=== PATIENT | male | born 1965 | race Caucasian/White ===

== ENCOUNTER 2018-08-17 18:41 | Inpatient (IN) | payer BC ==
[2018-08-17] MEDS ORDERED: guaiFENesin-Coden 100-10MG/5ML 10 ML CUP PO PRN (21:21)
[2018-08-17] MEDS ORDERED: cloNIDine HCL 0.1 MG TAB PO PRN (21:21)
[2018-08-17] MEDS ORDERED: cloNIDine 0.2 MG/24HR PATCH TRANSDERM SCH (21:30)
[2018-08-17] MEDS ORDERED: NALOXONE 0.4 MG/ML 1 ML VIAL IV PRN (21:44)
[2018-08-17] MEDS ORDERED: DOCUSATE 100 MG CAP PO PRN (21:44)
[2018-08-17] MEDS ORDERED: ALPRAZolam 0.25 MG TAB PO PRN (21:44)
[2018-08-17] MEDS ORDERED: PHENobarbital 32.4 MG TAB PO SCH (21:45)
[2018-08-17] MEDS ORDERED: PHENobarbital 64.8 MG TAB PO SCH (22:00)
[2018-08-17] MEDS ORDERED: cloNIDine 0.1 MG/24HR PATCH TRANSDERM SCH (22:00)
[2018-08-17] MEDS: AMPICILLIN-SULBACTAM 3 GM in SODIUM CHLORIDE 0.9% 100 ML IVPB SCH (22:43)
[2018-08-17] MEDS: SODIUM CHLORIDE 0.9% 1,000 ML IV SCH (22:45)
[2018-08-17] MEDS: PANTOPRAZOLE 40 MG TABLET PO SCH (22:45)
--- NOTE | 2018-08-17 23:02 | P.HPIM ---
History of Present Illness H&P Date: 08/17/18 Chief Complaint: direct admit , transfer from [facility] for thoracentesis by IR 52 year old male with history of alcohol abuse. Patient was seen on the medical floor upon transfer, he is currently doing well , told them that it week ago he felt sick and fell down for which she called a friend to be transferred to the hospital he was complaining of chest tightness at that time with some weight loss over 2 weeks of time he lost 10 pounds but he said he always weighed around 125-150 pounds which is around his current weight. He denies any hemoptysis GI bleeding currently denies any chest pain nausea vomiting or abdominal pain. He admits to heavy drinking on regular basis and smoking but denies any history of COPD. He doesn't take any medications at home. He works daily and pretty independent in his activities of daily living. He knows that he has spent a week at the other facility being treated for pneumonia and DTs due to alcohol withdrawal. He understands that he was transferred due to persistent left pleural effusion for further management. Patient reports that he developed generalized debility while at the other facility he noticed that over the past 2 days that he can't walk long distances at the other facility. However at baseline he does not require any assistive devices for ambulation Patient was admitted to [facility] on 08/10/2018, with initial presentation of chest pain and tachycardia and SOB, spent 7 days then transferred to our facility, usually risk of alcohol withdrawal is in the first 5 days after cessation of chronic alcohol ingestion , however, he was having severe DTs. Patient has been treated with Benzo per CIWA for DTs then switched to phenobarb due to severe withdrawal symptoms. He was found to have sepsis secondary to pneumonia (possible aspiration ) and bacteremia (STREPTOCOCCUS PNEUMONIAE from pneumonia) , for which he was covered with Unasyn , then later found to have loculated pleural effusion over the left side, s/p thoracentesis on 08/17/2018. however, pleural effusion was found to be persistent and loculated , and in light of persistent elevation in his white count , there is suspicion for loculated empyema, for which he was transferred to our facility for IR guided thoracentesis. Positive blood culture on 08/12/18, initially treated with vancomycin then switched to unasyn for strep pneumo. Cardiology evaluated the patient due to initial presentation of chest pain and tachycardia , deemed him stable from their standpoint on 08/16/2018. Echocardiogram left ventricle with normal wall thickness and cavity size is normal systolic function is borderline reduced estimated ejection fraction of 50 % mild global hypokinesis Initial imaging on 08/10/18 CXR showed RT upper lobe and Lt lower lobe infilterates, with small left effusion , suspected nodular pattern over neymar right upper lobe suspected for neoplasm CT chest , bilateral areas of consolidation with small left effusion , recommending follow up to resolution of the consolidation is recommended to exclude underlying neoplasm , particular attention to the right upper lobe, are of 1.7 cm of localized focal consolidation or nodule CXR on 08/17/2018 report no pneumothorax post thoracentesis, moderate to large left loculated pleural effusion, slight improvement of an infiltrate of the left upper lobe and per free of the right mid lung, atelectasis right costophrenic angle Review of Systems Pertinent positives as noted in HPI. All other systems were reviewed and are negative Past Medical History Past Medical History: Hypertension, Pneumonia History of Any Multi-Drug Resistant Organisms: None Reported Past Surgical History: No Surgical Hx Reported Past Anesthesia/Blood Transfusion Reactions: No Reported Reaction Past Psychological History: No Psychological Hx Reported Smoking Status: Current every day smoker Past Alcohol Use History: Daily, Heavy Additional Past Alcohol Use History / Comment(s): 6-12 beers daily Past Drug Use History: None Reported Medications and Allergies Home Medications and Allergies Comment(s): medications reviewed from transfer paper chart. Home Medications Medication Instructions Recorded Confirmed Type Acetaminophen Tab [Tylenol Tab] 650 mg PO Q6H PRN 08/17/18 08/17/18 History Aminah Back And Body 1 tab PO Q6H PRN 08/17/18 08/17/18 History Allergies Allergy/AdvReac Type Severity Reaction Status Date / Time No Known Allergies Allergy Unverified 08/17/18 20:32 Physical Exam Vitals: Blood pressure 118/79 Heart rate 100 Temperature 90.8 Fahrenheit oral Respiratory 20 Constitutional: No acute distress, conversant, pleasant, looks thin. And older than stated age Eyes: Anicteric sclerae, moist conjunctiva, no lid-lag Pupils equal round reactive to light ENMT: NC/AT Oropharynx clear, no teeth, no erythema, no exudates Neck: Supple, FROM, no masses, or JVD No carotid bruits No thyromegaly Lungs: Good breath sounds over the right side of the lung, there is bronchial breathing over the mid and lower left lung with decreased breath sounds over the left lung base compared to the right side no wheezing no rhonchi no crackles Normal respiratory effort, no accessory muscle use Cardiovascular: Heart regular in rate and rhythm, No murmurs, gallops, or rubs No peripheral edema Abdominal: Soft Nontender, no guarding, rebound or rigidity Abdomen moving with respiration Normoactive bowel sounds No hepatomegaly, No splenomegaly No palpable mass No abdominal wall hernia noted Skin: Normal temperature, tone, texture, turgor No induration No subcutaneous nodules No rash, lesions No ulcers Extremities: No digital cyanosis No clubbing Pedal pulses intact and symmetrical Radial pulses intact and symmetrical No calf tenderness Psychiatric: Alert and oriented to person, place and time Appropriate affect fair judgment Neuro Muscles Strength 5/5 in all 4 extremities Sensation to light touch grossly present throughout Cranial nerves II-XII grossly intact No focal sensory deficits Lymphatics: no palpable cervical or supraclavicular , or inguinal lymph nodes Results Results: today labs from [facility] 08/17/2018 White BC 21.27 Hemoglobin 11.1 g per dl Platelet 262 INR 1.7 Glucose 91 bun 8 Creatinine 0.46 Sodium 127 Potassium 3.3 CO2 20 AGAP 12 Calcium 7.6 Assessment and Plan Assessment: Patient was admitted to [facility] on 08/10/2018, spent 7 days then transferred to our facility, usually risk of alcohol withdrawal is in the first 5 days after cessation of chronic alcohol ingestion he was having severe DTs. Patient has been treated with Benzo per CIWA for DTs then switched to phenobarb due to severe withdrawal symptoms. He was found to have sepsis secondary to pneumonia (possible aspiration ) and bacteremia (STREPTOCOCCUS PNEUMONIAE from pneumonia) , for which he was covered with Unasyn , then later found to have loculated pleural effusion over the left side, s/p thoracentesis on 08/17/2018. however, pleural effusion was found to be persistent and loculated , and in light of persistent elevation in his white count , there is suspicion for loculated empyema, for which he was transferred to our facility for IR guided thoracentesis. Plan: Acute hyponatremia acute hypoxic respiratory failure 2/2 Sepsis 2/2 Bacteremia (strep pneumo) , penumonia (CAP vs aspiration ) and Left sided loculated persistent pleural effusion s/p thoracentesis ?empyema Alcohol abuse with DTs metabolic encephalopathy secondary to above , improving Hypertension electrolyte imbalance with hypokalemia supportive care IV ABx unasyn follow up blood cultures follow up labs replace K as needed nephro consult for worsening hyponatremia pulmonary consult for left pleural effusion IR to perform thoracentesis NPO after midnight continue home meds clonidine patch will be discontinued as patient blood pressure seems to be fine now and he is not on clonidine patch at this time. I will continue with when necessary clonidine 0.1 mg by mouth as needed for high blood pressure phenobarb for severe DTs PRN benzo bronchodilators thiamine and folic acid IVF hydration with NS fall and seizure precautions neuro checks IS DVT PPx heparin sc TID GI PPX with PPI full code Preformed a thorough record review from recent hospitalization at [facility] are summarized in HPI Surrogate decision maker patient's Sister., patient is full code Anticipated discharge: 48-[address]: Pending clinical course possible placement at rehab A total of 90 minutes was spent on the care of this complex patient more than 50 % of the time was spent in counseling and care coordination.
[2018-08-18] MEDS: HEPARIN SODIUM,PORCINE 5,000 UNIT/ML 1 ML VIAL SQ SCH ×3 (02:39→15:34)
[2018-08-18] MEDS: ACETAMINOPHEN TAB 325 MG TAB PO PRN ×4 (03:37→20:34)
[2018-08-18 06:15] LABS: Basophils # (A) 0.1 k/uL (0-0.2); Basophils % (A) 0 %; Eosinophils % (A) 0 %; HCT 32.7 % (39.0-53.0); HGB 10.6 gm/dL (13.0-17.5); Lymphocytes # (A) 0.6 k/uL (1.0-4.8); Lymphocytes % (A) 3 %; MCHC 32.2 g/dL (31.0-37.0); MCV 99.2 fL (80.0-100.0); Mean Platelet Volume 7.8; Monocytes # (A) 1.1 k/uL (0-1.0); Monocytes % (A) 6 %; Neutrophils # (A) 15.2 k/uL (1.3-7.7); Neutrophils % (A) 87 %; Platelet Count 319 k/uL (150-450); RDW 12.8 % (11.5-15.5); WBC 17.4 k/uL (3.8-10.6)
[2018-08-18] MEDS: AMPICILLIN-SULBACTAM 3 GM in SODIUM CHLORIDE 0.9% 100 ML IVPB SCH ×3 (06:19→18:08)
[2018-08-18] MEDS: PANTOPRAZOLE 40 MG TABLET PO SCH ×4 (06:19→20:41)
[2018-08-18] MEDS: SODIUM CHLORIDE 0.9% 1,000 ML IV SCH ×2 (06:22→17:05)
[2018-08-18 06:30] LABS: ALT 59 U/L (21-72); AST 61 U/L (17-59); Albumin 2.1 g/dL (3.5-5.0); Alkaline Phosphatase 53 U/L (38-126); Anion Gap 8 mmol/L; Blood Urea Nitrogen 9 mg/dL (9-20); Calcium 7.3 mg/dL (8.4-10.2); Carbon Dioxide 24 mmol/L (22-30); Chloride 98 mmol/L (98-107); Glucose 98 mg/dL (74-99); Magnesium 2.3 mg/dL (1.6-2.3); Sodium 130 mmol/L (137-145); Total Bilirubin 0.7 mg/dL (0.2-1.3); Total Protein 4.6 g/dL (6.3-8.2)
--- NOTE | 2018-08-18 08:17 | XR ---
EXAMINATION TYPE: XR chest 1V DATE OF EXAM: 08/18/2018 COMPARISON: None INDICATION: Left pleural effusion TECHNIQUE: Single frontal view of the chest is obtained. FINDINGS: The heart size is normal. The pulmonary vasculature is normal. Large loculated left pleural effusion appears to be present. Underlying mass is not excluded. There i s mild increased lung markings in the right perihilar region. Minimal right pleural effusion may be p resent. IMPRESSION: 1. There appears to be a large loculated left pleural fluid collection. Underlying masses are not exc luded. Follow-up is recommended. 2. Right peripheral increased lung markings. Mild infiltrate may be present. 3. Minimal right pleural fluid
[2018-08-18] MEDS: IPRATROPIUM-ALBUTEROL 3 ML NEB INHALATION PRN ×2 (09:14→20:51)
[2018-08-18] MEDS: BUDESONIDE 0.5 MG/2 ML NEBU INHALATION SCH ×2 (09:14→20:51)
[2018-08-18 09:45] LABS: INR 1.3 (<1.2); Prothrombin Time 13.5 sec (9.0-12.0)
--- NOTE | 2018-08-18 10:17 | P.PN ---
Subjective Progress Note Date: 08/18/18 Principal diagnosis: shortness of breath Patient is a 52-year-old male with a past medical history of hypertension and pneumonia who was transferred here from [facility]. He had been hospitalized on 08/10/2018 for chest pain, tachycardia, and shortness of breath. During that hospitalization he was found to have pneumonia possibly secondary to aspiration, sepsis, severe delirium tremens not responsive to benzodiazepines, and strep pneumonia bacteremia. He is being followed by the hospitalist service, pulmonary, and infectious disease. He was started on Unasyn. He had initially been progressing well and his DTs were improving they were able to decrease his medications. He was placed on oral phenobarbital. His white blood cell count had initially been decreasing but then began to elevate. At that time they performed a CT which showed a loculated pleural effusion. He underwent thoracentesis on 08/17 however the found effusion was found to be persistent and loculated. Repeat blood cultures were obtained and were negative. Pulmonary then recommended transfer to our facility for loculated empyema. He was also noted to have persistent hyponatremia throughout his hospitalization at [facility]. Patient seen and examined at bedside. He states that he has been feeling progressively better. He denies any chest pain at this time. He still has intermittent shortness of breath. He has been having several bowel movements daily with they have been formed. He denies any nausea or vomiting. He states his appetite is slowly coming back. Objective - Vital Signs Vital signs: Vital Signs Temp 98.3 F 08/18/18 04:35 Pulse 92 08/18/18 09:32 Resp 21 08/18/18 04:35 BP 130/74 08/18/18 04:35 Pulse Ox 94 L 08/18/18 04:35 Intake & Output 08/17/18 08/18/18 08/18/18 18:59 06:59 18:59 Intake Total 0 Balance 0 Weight 59.1 kg Intake: Oral 0 - Exam General: ill appearing, no distress, appears at stated age Derm: warm, dry Head: atraumatic, normocephalic, symmetric Eyes: EOMI, no lid lag, anicteric sclera Mouth: no lip lesion, mucus membranes moist Cardiovascular: S1S2 reg, no murmur, positive posterior tibial pulse bilateral, Lungs: decreased bs left, no rhonchi, no rales , no accessory muscle use Abdominal: soft, nontender to palpation, no guarding, no appreciable organomegaly Ext: no gross muscle atrophy, no edema, no contractures Neuro: CN II-XI grossly intact, no focal neuro deficits Psych: Alert, oriented, appropriate affect - Labs CBC & Chem 7: 08/18/18 05:58 08/18/18 05:58 Labs: Abnormal Lab Results - Last 24 Hours (Table) 08/18/18 08/18/18 08/18/18 Range/Units 05:58 05:58 09:12 WBC 17.4 H (3.8-10.6) k/uL RBC 3.30 L (4.30-5.90) m/uL Hgb 10.6 L (13.0-17.5) gm/dL Hct 32.7 L (39.0-53.0) % Neutrophils # 15.2 H (1.3-7.7) k/uL Lymphocytes # 0.6 L (1.0-4.8) k/uL Monocytes # 1.1 H (0-1.0) k/uL PT 13.5 H (9.0-12.0) sec INR 1.3 H (<1.2) Sodium 130 L (137-145) mmol/L Creatinine 0.50 L (0.66-1.25) mg/dL Calcium 7.3 L (8.4-10.2) mg/dL AST 61 H (17-59) U/L Total Protein 4.6 L (6.3-8.2) g/dL Albumin 2.1 L (3.5-5.0) g/dL Assessment and Plan Assessment: Bilateral pneumonia, possible aspiration -Continue with Unasyn, pulmonary hygiene -Pulmonary consultation -Budesonide, duoneb prn Strep pneumonia bacteremia -ID recommendations -Continue with Unasyn Left-sided loculated pleural effusion -Pulmonary following -IR consultation for possible pigtail catheter placement Acute hypoxic respiratory failure -Treatment as above Hyponatremia -Improved from yesterday with the use of normal saline -Nephrology consultation -Check serum osmol, urine osmol, and urine sodium levels -Could be secondary to DTs Delirium tremens, significantly improving -Continue with oral phenobarbital for another 24 hours -Will attempt to decrease phenobarbital in a.m. Hypertension, now controlled - follow BP - off catapres patch - prn catapres Resolved: Sepsis Toxic metabolic encephalopathy secondary to delirium tremens DVT prophylaxis: SCDs, lovenox in AM Discussed with: Patient, nursing Anticipated discharge: 24-[address]: home A total of 45 minutes was spent on the care of this complex patient more than 50 % of the time was spent in counseling and care coordination.
[2018-08-18 11:30] VITALS: BMI 17.6
--- NOTE | 2018-08-18 13:15 | P.CNPUL ---
History of Present Illness Consult date: 08/18/18 Requesting physician: Jenn Greer Reason for consult: dyspnea Chief complaint: Loculated left pleural effusion History of present illness: This is a 52-year-old white male patient that does not have a primary care provider, with past medical history of EtOH abuse, nicotine dependence, who was transferred from [facility] on 08/17/2018 after being hospitalized there for about a week since 08/10/2018. Patient initially presented to [facility] to the hospital with complaints of weakness, shortness of breath, disorientation, he could hardly walk related to his severe dyspnea. He sustained a fall at home, but did not sustain any apparent injuries. Denied any fever or chills, denied any significant cough or congestion, no pleurisy, no chest wall tenderness, no hemoptysis. No nausea, no vomiting or diarrhea, no abdominal pain. H drinks several beers a day on a regular basis, smokes about a pack a day for 34 years, denies any underlying chronic lung condition, not on any oxygen, not any breathing medications or any other prescription medications. 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 Initial chest x-ray showed right upper and left lower lobe infiltrates with small left effusion and suspected nodular pattern over the right upper lobe suspicious for neoplasm. CT chest was completed and showed bilateral areas of consolidation with small left effusion, with a 1.7 cm of localized focal consolidation or nodule in the right upper lobe. Patient had a right-sided thoracentesis on 08/17/2018, a follow-up chest x-ray showed moderate to large left loculated pleural effusion, but improvements in the appearance of the left upper lobe infiltrate and right midlung infiltrate. Patient was found to have Cryptococcus pneumonia bacteremia, initially was treated with vancomycin but then switched to Unasyn, which he remains. Patient was transferred to a [facility] on 08/17/2018 with a consult to direction radiology for a pigtail chest tube placement for a loculated left pleural effusion. Chest x-ray completed at this hospital on 08/18/2018 shows a large locular left pleural effusion, or lying mass is not excluded there is mild increased lung markings in the right perihilar region, and a minimal right pleural effusion. Blood work showed white blood cell count of 17.4, hemoglobin of 10.6, INR today is 1.3, sodium is 1:30, potassium is 4.0, chloride is 98, BUN is 9 and creatinine 0.50, AST was 61, ALT was 59, alk phos was 53. Patient is awake and alert, currently in no distress, lung sounds reveal diminished breath sounds on the left, with dullness to percussion, no signs of active delirium, no tremors, no headaches, confusion. Patient is on 6 L per nasal cannula, and his pulse ox is around 94%, he is afebrile, hemodynamically stable. Continues on current antibiotics in the form of Unasyn, he is on nebulized bronchodilators, and Pulmicort. He was on CIWA protocol at [facility]. Review of Systems All systems: negative Constitutional: Reports malaise, Reports weakness, Reports weight loss, Denies chills, Denies fever Eyes: denies blurred vision, denies pain Ears, nose, mouth and throat: Denies headache, Denies sore throat Cardiovascular: Denies chest pain, Denies shortness of breath Respiratory: Reports dyspnea, Reports respiratory infections, Reports wheezing, Denies cough Gastrointestinal: Denies abdominal pain, Denies diarrhea, Denies nausea, Denies vomiting Musculoskeletal: Denies myalgias Integumentary: Denies pruritus, Denies rash Neurological: Denies numbness, Denies weakness Psychiatric: Denies anxiety, Denies depression Endocrine: Denies fatigue, Denies weight change Past Medical History Past Medical History: Hypertension, Pneumonia Additional Past Medical History / Comment(s): Jose Raul any other medical history History of Any Multi-Drug Resistant Organisms: None Reported Past Surgical History: No Surgical Hx Reported Past Anesthesia/Blood Transfusion Reactions: No Reported Reaction Past Psychological History: No Psychological Hx Reported Smoking Status: Current every day smoker Past Alcohol Use History: Daily, Heavy Additional Past Alcohol Use History / Comment(s): 6-12 beers daily Past Drug Use History: None Reported Medications and Allergies Home Medications Medication Instructions Recorded Confirmed Type Acetaminophen Tab [Tylenol Tab] 650 mg PO Q6H PRN 08/17/18 08/17/18 History Aminah Back And Body 1 tab PO Q6H PRN 08/17/18 08/17/18 History Allergies Allergy/AdvReac Type Severity Reaction Status Date / Time No Known Allergies Allergy Unverified 08/17/18 20:32 Physical Exam Vitals: Vital Signs Temp Pulse Pulse Resp BP Pulse Ox 08/18/18 09:32 92 08/18/18 09:15 92 08/18/18 04:35 98.3 F 98 21 130/74 94 L 08/18/18 04:00 97 22 08/18/18 02:06 98.8 F 97 22 134/62 94 L 08/18/18 00:00 100 20 08/17/18 20:15 98.0 F 100 20 118/79 88 L Intake and Output 08/17/18 08/18/18 08/18/18 22:59 06:59 14:59 Intake Total 0 Balance 0 Intake: Oral 0 Other: Weight 61.235 kg 59.1 kg 59.1 kg GENERAL EXAM: Alert, pleasant, thin, 52-year-old white male, on 6 L per nasal cannula, comfortable in no apparent distress. HEAD: Normocephalic/atraumatic. EYES: Normal reaction of pupils, equal size. Conjunctiva pink, sclera white. NOSE: Clear with pink turbinates. THROAT: No erythema or exudates. NECK: No masses, no JVD, no thyroid enlargement, no adenopathy. CHEST: No chest wall deformity. Symmetrical expansion. LUNGS: Equal air entry with diminished breath sounds over left mid and lower lobe and dullness to percussion over the same area CVS: Regular rate and rhythm, normal S1 and S2, no gallops, no murmurs, no rubs ABDOMEN: Soft, nontender. No hepatosplenomegaly, normal bowel sounds, no guarding or rigidity. EXTREMITIES: No clubbing, no edema, no cyanosis, 2+ pulses and upper and lower extremities. MUSCULOSKELETAL: Muscle strength and tone normal. SPINE: No scoliosis or deformity SKIN: No rashes CENTRAL NERVOUS SYSTEM: Alert and oriented -3. No focal deficits, tone is normal in all 4 extremities. PSYCHIATRIC: Alert and oriented -3. Appropriate affect. Intact judgment and insight. Results - Laboratory Findings CBC and BMP: 08/18/18 05:58 08/18/18 05:58 PT/INR, D-dimer PT 13.5 sec (9.0-12.0) H 08/18/18 09:12 INR 1.3 (<1.2) H 08/18/18 09:12 Abnormal lab findings: Abnormal Labs 08/18/18 08/18/18 08/18/18 05:58 05:58 05:58 WBC 17.4 H RBC 3.30 L Hgb 10.6 L Hct 32.7 L Neutrophils # 15.2 H Lymphocytes # 0.6 L Monocytes # 1.1 H PT INR Sodium 130 L Creatinine 0.50 L Osmolality 265 L Calcium 7.3 L AST 61 H Total Protein 4.6 L Albumin 2.1 L 08/18/18 09:12 WBC RBC Hgb Hct Neutrophils # Lymphocytes # Monocytes # PT 13.5 H INR 1.3 H Sodium Creatinine Osmolality Calcium AST Total Protein Albumin - Diagnostic Findings Chest x-ray: report reviewed, image reviewed Assessment and Plan Plan: Assessment: #1. Acute hypoxemic respiratory failure related to acute pneumonia, possibly related to aspiration, with sepsis. Imaging taken at another hospital showed bilateral pneumonia #2. Large loculated left pleural effusion, parapneumonic, status post left- sided thoracentesis on 08/17/2018, cultures and cytology in progress at [facility] #3. Delirium tremens, not currently active, patient was hospitalized for a week at [facility], and was maintained on CIWA #4. Acute Streptococcus pneumonia bacteremia, initially treated with vancomycin, currently on Unasyn. Echocardiogram was completed at [facility] and showed low normal left ventricular function with ejection fraction of 50% #5. Hyponatremia, could be related to history of chronic alcohol use #6. Hypertension #7. Daily EtOH use, several beers a day #8. Chronic and ongoing nicotine dependence, carries [id number] smoking history Plan: Patient is scheduled for pigtail chest tube placement in the left likely pleural effusion today. Vital signs are stable, no fever or chills, antibiotic coverage with Unasyn, patient is awake and alert, pleasant and cooperative, no active del irium. Continue encouraging deep breathing and coughing, wean FiO2. Continue with nebulized bronchodilators, continue to follow and make further recommendations based on the clinical course I performed a history & physical examination of the patient and discussed their management with my nurse practitioner, Kassandra Suarez. I reviewed the nurse practitioner's note and agree with the documented findings and plan of care. Lung sounds are positive for breast sounds on the left, with dullness to percussion. The findings and the impression was discussed with the patient. I attest to the documentation by the nurse practitioner. Time with Patient: Greater than 30
--- NOTE | 2018-08-18 15:18 | US ---
EXAMINATION TYPE: US guided chest tube insertion DATE OF EXAM: 08/18/2018 COMPARISON: Chest x-ray 08/18/2017 HISTORY: Pleural effusion. FINDINGS: Maximal barrier technique was utilized. The skin overlying a suitable pocket of fluid was localized and the overlying skin prepped and draped. Note is made of a multilocular appearance. Lido glenn was used for local anesthesia. Ultrasound was used with sterile technique. A 21-gauge needle w as advanced into the pleural fluid collection using ultrasound guidance and serous fluid returned. 0 .018 inch wire was advanced, and the access site was upsized and an 8.5 Korean catheter was advanced over wire and fixed in place. Catheter was attached to water seal, approximately 30 cc of serous sang uinous fluid were sent for laboratory analysis. Following, hemostasis achieved. There is no immediat e complication. The patient discharged in stable condition without complication back to the [facility]. Po st procedure chest x-ray pending. IMPRESSION: STATUS POST ULTRASOUND GUIDED PLEURAL DRAINAGE TUBE PLACEMENT, POST PROCEDURE CHEST X-RAY PENDING. THIS PROCEDURE WAS PERFORMED BY THE UNDERSIGNED.
--- NOTE | 2018-08-18 15:20 | XR ---
EXAMINATION TYPE: XR chest 1V portable DATE OF EXAM: 08/18/2018 COMPARISON: Prior chest x-ray same dated earlier time HISTORY: Chest tube placement TECHNIQUE: Single frontal view of the chest is obtained. FINDINGS: There is been interval placement of a pleural drainage tube on the left. No pneumothorax. No other significant interval change. IMPRESSION: No evident complication status post chest tube placement.
[2018-08-18] MEDS: NICOTINE 21MG/24HR PATCH TRANSDERM SCH (15:34)
[2018-08-18] MEDS: ASPIRIN 81 MG PO SCH (15:34)
[2018-08-18] MEDS: MAGNESIUM OXIDE 400 MG TAB PO SCH (15:34)
[2018-08-18] MEDS: FOLIC ACID 1 MG TAB PO SCH (15:35)
[2018-08-18] MEDS: THIAMINE 100 MG TAB PO SCH (15:35)
[2018-08-18] MEDS ORDERED: ALTEPLASE 10 MG in SODIUM CHLORIDE 0.9% 100 ML IRRIGATION ONE (15:39)
[2018-08-18] MEDS: PHENobarbital 32.4 MG TAB PO SCH ×2 (15:50→20:33)
--- NOTE | 2018-08-18 17:28 | P.GSCN ---
History of Present Illness Consult date: 08/18/18 Reason for Consult: Left loculated pleural effusion status post pigtail insertion, surgical recommendations Requesting physician: Tanna White History of present illness: This is a 52-year-old gentleman who does not follow with the primary care physician on an outpatient basis, and in fact has not been treated physician in quite some time. Previous medical history includes hypertension although he states he was taken off blood pressure medications by a physician, 1-1/2 pack a day tobacco dependence for 34 years, and 12 pack of beer per day alcohol abuse. He presented to [facility] with complaints of chest pain with shortness of breath, nausea, diaphoresis, dry hacking cough, coughing, and unsteady gait. He was admitted for evaluation and treatment, cardiology was consulted, and he was deemed stable from a cardiac standpoint. He had repeated chest x-rays demonstrating right upper lobe and left lower lobe infiltrates with left pleural effusion. CT of the chest was also completed demonstrating bilateral consolidation with small left pleural effusion with right upper lobe 1.7 cm focal consolidation or nodule. He was treated for pneumonia with sepsis and lactic acidosis as well as dehydration. He had blood cultures which were positive for strep pneumonia and he was treated with Unasyn per infectious disease. During his course he also exhibited alcohol withdrawal and was treated according to [facility] protocol with benzodiazepines. He had a thoracentesis on August 17 but continued to have a pleural effusion, considered loculated in nature. He was transferred to [facility] for interventional radiology to place a pigtail catheter, this was done today with 30 mL serous drainage which was sent for analysis. An atrium was connected to the catheter with only 20 mL serous drainage. Chest x-ray completed after pigtail placement demonstrated continued large loculated left-sided pleural effusion. Consultation was placed to Dr. Paredes cardiothoracic surgery for surgical recommendations. Review of Systems Review of systems was completed and was negative except as noted in the HPI Past Medical History Past Medical History: Hypertension, Pneumonia Additional Past Medical History / Comment(s): Jose Raul any other medical history History of Any Multi-Drug Resistant Organisms: None Reported Past Surgical History: No Surgical Hx Reported Past Anesthesia/Blood Transfusion Reactions: No Reported Reaction Past Psychological History: No Psychological Hx Reported Smoking Status: Current every day smoker Past Alcohol Use History: Daily, Heavy Additional Past Alcohol Use History / Comment(s): 6-12 beers daily Past Drug Use History: None Reported Medications and Allergies Home Medications Medication Instructions Recorded Confirmed Type Acetaminophen Tab [Tylenol Tab] 650 mg PO Q6H PRN 08/17/18 08/17/18 History Aminah Back And Body 1 tab PO Q6H PRN 08/17/18 08/17/18 History Allergies Allergy/AdvReac Type Severity Reaction Status Date / Time No Known Allergies Allergy Unverified 08/17/18 20:32 Surgical - Exam Vital Signs Temp Pulse Resp BP Pulse Ox 98.0 F 100 20 118/79 88 L 08/17/18 20:15 08/17/18 20:15 08/17/18 20:15 08/17/18 20:15 08/17/18 20:15 - General well developed, no distress, no pain - Eyes PERRL, normal ocular movement - ENT no hearing loss, poor nursing home - Neck no masses, no bruits, trachea midline - Respiratory Lungs sounds diminished bilaterally, left greater than right. Respirations even , nonlabored. Currently on 6 L nasal cannula with oxygen saturation 93%. Able to achieve 1000 mL on his incentive spirometry. Left-sided pigtail catheter present, connected to continuous wall suction, 20 mL serous drainage in the atrium. - Cardiovascular S1, S2 present. Regular rate and rhythm, sinus rhythm on telemetry. Palpable peripheral pulses bilaterally. No edema present. No calf pain or tenderness noted. - Abdomen Abdomen: soft, non tender, bowel sounds - Genitourinary Deferred - Rectum Deferred - Integumentary no rash, no growths - Neurologic normal coordination, normal sensation - Musculoskeletal normal posture - Psychiatric oriented to time, oriented to person, oriented to place, speech is normal, memory intact Results - Labs 08/18/18 05:58 08/18/18 05:58 Abnormal Lab Results - Last 24 Hours (Table) 08/18/18 08/18/18 08/18/18 Range/Units 05:58 05:58 05:58 WBC 17.4 H (3.8-10.6) k/uL RBC 3.30 L (4.30-5.90) m/uL Hgb 10.6 L (13.0-17.5) gm/dL Hct 32.7 L (39.0-53.0) % Neutrophils # 15.2 H (1.3-7.7) k/uL Lymphocytes # 0.6 L (1.0-4.8) k/uL Monocytes # 1.1 H (0-1.0) k/uL PT (9.0-12.0) sec INR (<1.2) Sodium 130 L (137-145) mmol/L Creatinine 0.50 L (0.66-1.25) mg/dL Osmolality 265 L (280-301) mosm/kg Calcium 7.3 L (8.4-10.2) mg/dL AST 61 H (17-59) U/L Total Protein 4.6 L (6.3-8.2) g/dL Albumin 2.1 L (3.5-5.0) g/dL 08/18/18 Range/Units 09:12 WBC (3.8-10.6) k/uL RBC (4.30-5.90) m/uL Hgb (13.0-17.5) gm/dL Hct (39.0-53.0) % Neutrophils # (1.3-7.7) k/uL Lymphocytes # (1.0-4.8) k/uL Monocytes # (0-1.0) k/uL PT 13.5 H (9.0-12.0) sec INR 1.3 H (<1.2) Sodium (137-145) mmol/L Creatinine (0.66-1.25) mg/dL Osmolality (280-301) mosm/kg Calcium (8.4-10.2) mg/dL AST (17-59) U/L Total Protein (6.3-8.2) g/dL Albumin (3.5-5.0) g/dL Diabetes panel 08/18/18 Range/Units 05:58 Sodium 130 L (137-145) mmol/L Potassium 4.0 (3.5-5.1) mmol/L Chloride 98 (98-107) mmol/L Carbon Dioxide 24 (22-30) mmol/L BUN 9 (9-20) mg/dL Creatinine 0.50 L (0.66-1.25) mg/dL Glucose 98 (74-99) mg/dL Calcium 7.3 L (8.4-10.2) mg/dL AST 61 H (17-59) U/L ALT 59 (21-72) U/L Alkaline Phosphatase 53 (38-126) U/L Total Protein 4.6 L (6.3-8.2) g/dL Albumin 2.1 L (3.5-5.0) g/dL Calcium panel 08/18/18 Range/Units 05:58 Calcium 7.3 L (8.4-10.2) mg/dL Albumin 2.1 L (3.5-5.0) g/dL Pituitary panel 08/18/18 Range/Units 05:58 Sodium 130 L (137-145) mmol/L Potassium 4.0 (3.5-5.1) mmol/L Chloride 98 (98-107) mmol/L Carbon Dioxide 24 (22-30) mmol/L BUN 9 (9-20) mg/dL Creatinine 0.50 L (0.66-1.25) mg/dL Glucose 98 (74-99) mg/dL Calcium 7.3 L (8.4-10.2) mg/dL Adrenal panel 08/18/18 Range/Units 05:58 Sodium 130 L (137-145) mmol/L Potassium 4.0 (3.5-5.1) mmol/L Chloride 98 (98-107) mmol/L Carbon Dioxide 24 (22-30) mmol/L BUN 9 (9-20) mg/dL Creatinine 0.50 L (0.66-1.25) mg/dL Glucose 98 (74-99) mg/dL Calcium 7.3 L (8.4-10.2) mg/dL Total Bilirubin 0.7 (0.2-1.3) mg/dL AST 61 H (17-59) U/L ALT 59 (21-72) U/L Alkaline Phosphatase 53 (38-126) U/L Total Protein 4.6 L (6.3-8.2) g/dL Albumin 2.1 L (3.5-5.0) g/dL - Imaging Chest x-ray: report reviewed, image reviewed EKG: image reviewed Assessment and Plan Assessment: 1. Left-sided loculated pleural effusion, parapneumonic, status post thoracentesis and pigtail insertion 2. Current tobacco abuse, one half packs per day for 34 years 3. COPD 4. Alcohol abuse, 12 pack of beer per day 5. Community-acquired versus aspiration pneumonia, strep pneumonia bacteremia 6. Sepsis with lactic acidosis, acute hypoxemic respiratory failure upon admission to [facility] 7. Hyponatremia 8. Previous history of hypertension, currently off medication Plan: The patient was seen and examined at the bedside. Chart/diagnostics were reviewed. The case will be discussed in detail with Dr. Paredes. At this time our recommendation is for alteplase instillation to the pigtail catheter, hopefully this will break up his loculations. If not, we will discuss surgical intervention with the patient. Continue antibiotics per infectious disease. Bronchodilators per pulmonology. Wean O2 as tolerated. Encourage incentive spirometry use. Encourage tobacco and alcohol cessation. Increase activity, ambulate in hallway. May take chest tube off suction for a short time periods for patient to ambulate. Medical management for other comorbidities per primary care service. Will continue to monitor and make further recommendations based on patient's progress. Thank you Dr. White for this consult. We look forward to working with you in the care of your patient. Time with Patient: Greater than 30
[2018-08-18 17:54] LABS: Appearance,BF Bloody; Color,BF Red; Nucleated Cells, Body Fluid 350 /uL; RBC, Body Fluid 41100 /uL
[2018-08-18 17:55] LABS: Mononuclear WBC,Body Fluid 9 %; Polynuclear WBC,Body Fluid 91 %
[2018-08-18] MEDS ORDERED: MAG HYDROX/AL HYDROX/SIMETH 30 ML CUP PO PRN (23:05)
[2018-08-19 00:05] LABS: Basophils % (A) 0 %; Eosinophils % (A) 0 %; HCT 33.8 % (39.0-53.0); HGB 11.1 gm/dL (13.0-17.5); Lymphocytes # (A) 0.7 k/uL (1.0-4.8); Lymphocytes % (A) 5 %; MCH 32.7 pg (25.0-35.0); MCHC 32.8 g/dL (31.0-37.0); MCV 99.8 fL (80.0-100.0); Mean Platelet Volume 8.3; Monocytes # (A) 0.9 k/uL (0-1.0); Monocytes % (A) 6 %; Neutrophils % (A) 86 %; Platelet Count 376 k/uL (150-450); RBC 3.39 m/uL (4.30-5.90)
--- NOTE | 2018-08-19 00:17 | CONS ---
CONSULTATION REASON FOR CONSULT: Hyponatremia. HISTORY OF PRESENT ILLNESS: The patient is a 52-year-old male who was initially admitted to [facility] on 08/10/2018 for pneumonia. He was in septic shock and was significantly ill with extensive bilateral pneumonia. His blood cultures were positive for strep pneumoniae. The patient was hyponatremic with serum sodium of 128 on his initial hospitalization. It appears he was also severely hypokalemic with a potassium of 2.1. Serum sodium had improved to about 133 and 132 milliequivalents per L. On 08/17/2018, serum sodium was 127. It looks like the patient was initially maintained on aggressive IV hydration secondary to sepsis and shock and then his IV fluids were decreased at the time of discharge. Patient has been transferred to [facility] for loculated left pleural effusion and further management. Thoracic Surgery has been consulted. TSH was elevated at 9.2 during his hospitalization at [facility]. I do not see a urine osmolality or urine sodium level drawn over there. PAST MEDICAL HISTORY: Significant for history of alcohol abuse, hypertension, previous history of pneumonia. SOCIAL HISTORY: Positive for smoking. Patient has a heavy alcohol consumption 6 to 12 beers daily and social. MEDICATIONS: Prior to admission to the hospital included aspirin and Tylenol. ALLERGIES: None. REVIEW OF SYSTEMS: As per HPI. Other systems negative. PHYSICAL EXAMINATION: On examination today, patient is comfortable, awake, alert, oriented x3, not in any acute distress. Blood pressure was this morning 140/71, heart rate of about 100 per minute. Patient is afebrile. Examination of the heart S1, S2. Examination of lungs bilateral basal crackles are heard, more on the left side. STUDIO GRIP exam is grossly intact. Abdomen is soft, nontender. Examination lower extremities shows no evidence of edema. LABS: Sodium 130, potassium 4.0, BUN 9, serum creatinine 0.5, magnesium 2.3. Calcium 7.3. ASSESSMENT: 1. Hyponatremia. Appeared to be hypovolemic initially at [facility] as serum sodium have had improved from 128-137, however, it did drop again to about 133 and 132 mEq/L. This morning it is at 130. The patient does have a history of alcohol abuse, therefore he probably has a very low urinary osmolar content and is not able to excrete the free water. At this time, I will continue with the saline. We will repeat a sodium tomorrow. I will also check urine sodium and urine osmolality. Patient's TSH was elevated at 9.2 at [facility]. This will need to be repeated. There may be a component of hypothyroidism adding to his hyponatremia. 2. Loculated left pleural effusion secondary to strep pneumonia and bilateral pneumonia, being evaluated by Cardiothoracic Surgery. 3. Bilateral pneumonia and sepsis from strep pneumonia with positive blood cultures at [facility] for strep pneumoniae. Currently maintained on Unasyn, being followed by ID. PLAN: Continue with normal saline. Encourage increased oral protein intake. Check random urine sodium and urine osmolality and repeat a TSH level. Thank you for this consultation. I will continue to follow the patient with you during his hospitalization. MMODL / IJN: [id number] /
[2018-08-19] MEDS: HYDROcodone/APAP 5-325MG 1 EACH TAB PO PRN (00:27)
[2018-08-19] MEDS: AMPICILLIN-SULBACTAM 3 GM in SODIUM CHLORIDE 0.9% 100 ML IVPB SCH ×5 (00:27→23:40)
--- NOTE | 2018-08-19 00:49 | XR ---
EXAM: XR Chest, 1 View CLINICAL HISTORY: status post thoracentesis; left side TECHNIQUE: Frontal view of the chest. COMPARISON: 08/18/18 FINDINGS: Decreased left pleural effusion though still fairly prominent in size. No pneumothorax is identified. Left chest tube and other findings do not appear significantly changed allowing for differences in technique. IMPRESSION: Decreased left pleural effusion. No pneumothorax identified.
[2018-08-19] MEDS: HEPARIN SODIUM,PORCINE 5,000 UNIT/ML 1 ML VIAL SQ SCH ×2 (01:27→10:54)
--- NOTE | 2018-08-19 06:09 | CONS ---
CONSULTATION DATE OF SERVICE: 08/18/2018 REASON FOR CONSULTATION: Strep pneumo bacteremia, pneumonia and empyema. HISTORY OF PRESENT ILLNESS: The patient is a 52-year-old male who was recently admitted at [facility]. The patient did have evidence of strep pneumo bacteremia related to history pneumonia, which was with possible aspiration etiology. The patient noticed to have persistent elevated white count with a repeat CAT scan suggestive of bilateral pleural effusion loculated and the patient has been transferred to the [facility] to be evaluated by CT surgery and the chest tube placement is scheduled for today. The patient has been afebrile. The patient has been breathing more comfortably. He continued to have some cough but not bringing up any sputum. Chest pain in the lower rib cage more of a dull aching 3 to 4 out of 10 and no radiation. REVIEW OF SYSTEMS: Positive points have been mentioned in HPI. The rest of the systems has been negative. PAST MEDICAL HISTORY: Hypertension, pneumonia. PAST SURGICAL HISTORY: No major surgeries. SOCIAL HISTORY: Current everyday smoker and heavy drinking abuse, drinks 6-12 beers per day. No drug use. FAMILY HISTORY: No pertinent findings noticed. MEDICATION: Medications include the patient is currently on Tylenol, DuoNeb, Xanax, Unasyn 3 gram q.6 hours, aspirin, Pulmicort, Catapres, Colace, Robitussin, heparin, mag oxide, Narcan, nicotine patch, thiamine. PHYSICAL EXAMINATION: On examination, blood pressure is 142/67 with a pulse of 104, temperature 98. He is 91% on 6 L nasal cannula. General description is a middle aged male up in the bed in no distress. No tachypnea or accessory muscle of respiration use. HEENT examination shows no pallor. No scleral icterus. Oral mucous membranes dry. No pharyngeal erythema or thrush. NECK: Trachea is central. No thyromegaly. LUNGS: Unlabored breathing, decreased breath sounds in the bases. No wheeze or crackle. HEART: S1, S2. Regular rate and rhythm. No added sounds. ABDOMEN: Soft. No tenderness. No guarding or rigidity. EXTREMITIES: No edema of feet. SKIN EXAMINATION: No rash or mass palpable. NEUROLOGICAL: Patient is awake, alert, oriented x3. Mood and affect normal. LABS: Hemoglobin is 10.6, white count 17.4, BUN of 9 creatinine 0.50. Sodium is 130. The pleural fluid was bloody with 41,000 RBC, . Cultures currently pending. DIAGNOSTIC IMPRESSION AND PLAN: Patient admitted to the hospital with loculated pleural in this patient may have pneumonia, aspiration etiology with blood culture positive for strep pneumo pathogen at [facility] with concern for likely empyema, status post chest tube placement though white counts were not significantly elevated. Cultures currently pending. PLAN: 1. Unasyn 3 grams q.6 hours to continue. 2. Depending on his clinical response as well as culture, adjust the medication further. Thank you for this consultation. Will follow this patient along with you. MMODL / IJN: [id number] /
[2018-08-19] MEDS: SODIUM CHLORIDE 0.9% 1,000 ML IV SCH (06:19)
[2018-08-19 06:47] LABS: HCT 31.9 % (39.0-53.0); HGB 10.2 gm/dL (13.0-17.5); MCH 31.9 pg (25.0-35.0); MCHC 31.9 g/dL (31.0-37.0); Platelet Count 367 k/uL (150-450); RBC 3.19 m/uL (4.30-5.90); RDW 12.7 % (11.5-15.5); WBC 20.8 k/uL (3.8-10.6)
[2018-08-19 06:56] LABS: Anion Gap 7 mmol/L; Blood Urea Nitrogen 9 mg/dL (9-20); Calcium 7.1 mg/dL (8.4-10.2); Carbon Dioxide 22 mmol/L (22-30); Chloride 95 mmol/L (98-107); Glucose 118 mg/dL (74-99); Sodium 124 mmol/L (137-145)
[2018-08-19] MEDS ORDERED: ALTEPLASE 10 MG in SODIUM CHLORIDE 0.9% 100 ML IRRIGATION ONE (09:38)
[2018-08-19] MEDS: FOLIC ACID 1 MG TAB PO SCH (10:51)
[2018-08-19] MEDS: ACETAMINOPHEN TAB 325 MG TAB PO PRN (10:51)
[2018-08-19] MEDS: THIAMINE 100 MG TAB PO SCH (10:51)
[2018-08-19] MEDS: PANTOPRAZOLE 40 MG TABLET PO SCH (10:51)
--- NOTE | 2018-08-19 10:52 | P.PN ---
Subjective Progress Note Date: 08/19/18 Principal diagnosis: shortness of breath Patient is a 52-year-old male with a past medical history of hypertension and pneumonia who was transferred here from [facility]. He had been hospitalized on 08/10/2018 for chest pain, tachycardia, and shortness of breath. During that hospitalization he was found to have pneumonia possibly secondary to aspiration, sepsis, severe delirium tremens not responsive to benzodiazepines, and strep pneumonia bacteremia. He is being followed by the hospitalist service, pulmonary, and infectious disease. He was started on Unasyn. He had initially been progressing well and his DTs were improving they were able to decrease his medications. He was placed on oral phenobarbital. His white blood cell count had initially been decreasing but then began to elevate. At that time they performed a CT which showed a loculated pleural effusion. He underwent thoracentesis on 08/17 however the found effusion was found to be persistent and loculated. Repeat blood cultures were obtained and were negative. Pulmonary then recommended transfer to our facility for loculated empyema. He was also noted to have persistent hyponatremia throughout his hospitalization at [facility]. He was seen by interventional radiology and had a pigtail catheter placed on 08/18. He was seen by cardiothoracic and had TPA instilled on the evening of 08/18. He was found to have a hemorrhagic effusion. 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 He was seen by nephrology. Patient seen and examined at bedside. Complains of not having a bowel movement yet this morning and taking prune juice. No shortness of breath. He is coughing up more and is productive now. No nausea or vomiting. No abdominal pain. He is having some back pain from catheter insertion site. Objective - Vital Signs Vital signs: Vital Signs Temp 98.1 F 08/18/18 20:33 Pulse 104 H 08/19/18 05:09 Resp 22 08/19/18 05:09 BP 111/60 08/19/18 05:09 Pulse Ox 94 L 08/19/18 05:09 Intake & Output 08/18/18 08/19/18 08/19/18 18:59 06:59 18:59 Intake Total 960 1540 240 Output Total 32 1950 Balance 928 -410 240 Weight 59.1 kg 59.2 kg Intake: Oral 960 1540 240 Output: Chest Tube Drainage 32 1300 Chest Tube Left 32 1300 Urine 650 Other: # Voids 1 # Bowel Movements 1 - Exam General: ill appearing, no distress, appears at stated age Derm: warm, dry Head: atraumatic, normocephalic, symmetric Eyes: EOMI, no lid lag, anicteric sclera Mouth: no lip lesion, mucus membranes moist Cardiovascular: S1S2 reg, no murmur, positive posterior tibial pulse bilateral, Lungs: decreased bs left, no rhonchi, no rales , no accessory muscle use chest tube in place to suction with sanguinous drainage Abdominal: soft, nontender to palpation, no guarding, no appreciable organomegaly Ext: no gross muscle atrophy, no edema, no contractures Neuro: CN II-XI grossly intact, no focal neuro deficits Psych: Alert, oriented, appropriate affect - Labs CBC & Chem 7: 08/19/18 06:16 08/19/18 06:16 Labs: Abnormal Lab Results - Last 24 Hours (Table) 08/18/18 08/19/18 08/19/18 Range/Units 23:19 06:16 06:16 WBC 15.0 H 20.8 H (3.8-10.6) k/uL RBC 3.39 L 3.19 L (4.30-5.90) m/uL Hgb 11.1 L 10.2 L (13.0-17.5) gm/dL Hct 33.8 L 31.9 L (39.0-53.0) % Neutrophils # 13.0 H (1.3-7.7) k/uL Lymphocytes # 0.7 L (1.0-4.8) k/uL Sodium 124 L (137-145) mmol/L Chloride 95 L (98-107) mmol/L Creatinine 0.44 L (0.66-1.25) mg/dL Glucose 118 H (74-99) mg/dL Calcium 7.1 L (8.4-10.2) mg/dL Microbiology - Last 24 Hours (Table) 08/18/18 13:34 Gram Stain - Preliminary Pleural Fluid Body Fluid Culture - Preliminary 08/17/18 22:31 Blood Culture - Preliminary Blood No Growth after 24 hours 08/17/18 22:32 Blood Culture - Preliminary Blood No Growth after 24 hours 08/18/18 13:25 Anaerobic Culture - Preliminary Pleural Fluid Assessment and Plan Assessment: Bilateral pneumonia, possible aspiration -Continue with Unasyn, pulmonary hygiene -Pulmonary recs appreciated -Budesonide, duoneb prn Strep pneumonia bacteremia -ID recommendations -Continue with Unasyn Left-sided loculated hemorrhagic pleural effusion s/p CT with TPA on 08/18 -pain control - CT to sucction - cardiothorasic recs Hyponatremia due to SIADH -nephro recs -repeat labs at noon -stop IVF -1.2L fluid restriction Acute hypoxic respiratory failure -Treatment as above Delirium tremens, significantly improving -Decrease phenobarb - thiamine, folic acid - social work recs Hypertension, now controlled - follow BP - off catapres patch - prn catapres Resolved: Sepsis Toxic metabolic encephalopathy secondary to delirium tremens DVT prophylaxis:Lovenox Discussed with: Patient, nursing Anticipated discharge: 24-[address]: home A total of 25 minutes was spent on the care of this complex patient more than 50% of the time was spent in counseling and care coordination.
[2018-08-19] MEDS: ASPIRIN 81 MG PO SCH (10:53)
[2018-08-19] MEDS: MAGNESIUM OXIDE 400 MG TAB PO SCH (10:53)
[2018-08-19] MEDS: KETOROLAC 30 MG/ML 1 ML VIAL IVP SCH ×4 (10:53→23:38)
[2018-08-19] MEDS: NICOTINE 21MG/24HR PATCH TRANSDERM SCH (10:54)
[2018-08-19] MEDS: PHENobarbital 32.4 MG TAB PO SCH (10:55)
[2018-08-19] MEDS ORDERED: PHENobarbital 32.4 MG TAB PO STA (11:00)
--- NOTE | 2018-08-19 11:06 | P.PN ---
Subjective Progress Note Date: 08/19/18 Principal diagnosis: Loculated left pleural effusion, parapneumonic This is a 52-year-old white male patient that does not have a primary care provider, with past medical history of EtOH abuse, nicotine dependence, who was transferred from [facility] on 08/17/2018 after being hospitalized there for about a week since 08/10/2018. Patient initially presented to [facility] to the hospital with complaints of weakness, shortness of breath, disorientation, he could hardly walk related to his severe dyspnea. He sustained a fall at home, but did not sustain any apparent injuries. Denied any fever or chills, denied any significant cough or congestion, no pleurisy, no chest wall tenderness, no hemoptysis. No nausea, no vomiting or diarrhea, no abdominal pain. H drinks several beers a day on a regular basis, smokes about a pack a day for 34 years, denies any underlying chronic lung condition, not on any oxygen, not any breathing medications or any other prescription medications. 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 Initial chest x-ray showed right upper and left lower lobe infiltrates with small left effusion and suspected nodular pattern over the right upper lobe suspicious for neoplasm. CT chest was completed and showed bilateral areas of consolidation with small left effusion, with a 1.7 cm of loca lized focal consolidation or nodule in the right upper lobe. Patient had a right-sided thoracentesis on 08/17/2018, a follow-up chest x-ray showed moderate to large left loculated pleural effusion, but improvements in the appearance of the left upper lobe infiltrate and right midlung infiltrate. Patient was found to have Cryptococcus pneumonia bacteremia, initially was treated with vancomycin but then switched to Unasyn, which he remains. Patient was transferred to a [facility] on 08/17/2018 with a consult to direction radiology for a pigtail chest tube placement for a loculated left pleural effusion. Chest x-ray completed at this hospital on 08/18/2018 shows a large locular left pleural effusion, or lying mass is not excluded there is mild increased lung markings in the right perihilar region, and a minimal right pleural effusion. Blood work showed white blood cell count of 17.4, hemoglobin of 10.6, INR today is 1.3, sodium is 1:30, potassium is 4.0, chloride is 98, BUN is 9 and creatinine 0.50, AST was 61, ALT was 59, alk phos was 53. Patient is awake and alert, currently in no distress, lung sounds reveal diminished breath sounds on the left, with dullness to percussion, no signs of active delirium, no tremors, no headaches, confusion. Patient is on 6 L per nasal cannula, and his pulse ox is around 94%, he is afebrile, hemodynamically stable. Continues on current antibiotics in the form of Unasyn, he is on nebulized bronchodilators, and Pulmicort. He was on CIWA protocol at [facility]. On 08/19/2018 patient seen in follow-up on the selective care unit, states he didn't sleep well last night, was having discomfort in his left chest. But overall his breathing is stable, he states his not short of breath, productive cough, bringing up some whitish yellowish colored sputum. No fever or chills. Patient received a dose of TPA in the left-sided pigtail chest tube catheter, there has been 1300 mL of dark serosanguineous fluid in the Pleur-evac in the last 24 hours. Today's chest x-ray showed improvement in the size of the left pleural effusion, no pneumothorax. Cytologies pending, cultures are pending, pleural fluid analysis showed exudative fluid. Antibiotic coverage in the form of Unasyn, ID service is following, no fever or chills. Knees on 6 L per high flow nasal cannula, and his pulse ox is 91-94%, hemodynamically stable. Objective - Vital Signs Vital signs: Vital Signs Temp 98.1 F 08/18/18 20:33 Pulse 104 H 08/19/18 05:09 Resp 22 08/19/18 05:09 BP 111/60 08/19/18 05:09 Pulse Ox 94 L 08/19/18 05:09 Intake & Output 08/18/18 08/19/18 08/19/18 18:59 06:59 18:59 Intake Total 960 1540 240 Output Total 32 1950 Balance 928 -410 240 Weight 59.1 kg 59.2 kg Intake: Oral 960 1540 240 Output: Chest Tube Drainage 32 1300 Chest Tube Left 32 1300 Urine 650 Other: # Voids 1 # Bowel Movements 1 - Exam GENERAL EXAM: Alert, pleasant, thin, 52-year-old white male, on 6 L per nasal cannula, comfortable in no apparent distress. HEAD: Normocephalic/atraumatic. EYES: Normal reaction of pupils, equal size. Conjunctiva pink, sclera white. NOSE: Clear with pink turbinates. THROAT: No erythema or exudates. NECK: No masses, no JVD, no thyroid enlargement, no adenopathy. CHEST: No chest wall deformity. Symmetrical expansion. Left-sided pigtail chest tube catheter connected to a Pleur-evac and wall suction, and there is 1300 mL of dark serosanguineous pleural fluid in the Pleur-evac, no air leak noted LUNGS: Equal air entry with diminished breath sounds over left mid and lower lobe and dullness to percussion over the same area, better aeration noted on today's exam. CVS: Regular rate and rhythm, normal S1 and S2, no gallops, no murmurs, no rubs ABDOMEN: Soft, nontender. No hepatosplenomegaly, normal bowel sounds, no guarding or rigidity. EXTREMITIES: No clubbing, no edema, no cyanosis, 2+ pulses and upper and lower extremities. MUSCULOSKELETAL: Muscle strength and tone normal. SPINE: No scoliosis or deformity SKIN: No rashes CENTRAL NERVOUS SYSTEM: Alert and oriented -3. No focal deficits, tone is normal in all 4 extremities. PSYCHIATRIC: Alert and oriented -3. Appropriate affect. Intact judgment and insight. - Labs CBC & Chem 7: 08/19/18 06:16 08/19/18 06:16 Labs: Abnormal Lab Results - Last 24 Hours (Table) 08/18/18 08/19/18 08/19/18 Range/Units 23:19 06:16 06:16 WBC 15.0 H 20.8 H (3.8-10.6) k/uL RBC 3.39 L 3.19 L (4.30-5.90) m/uL Hgb 11.1 L 10.2 L (13.0-17.5) gm/dL Hct 33.8 L 31.9 L (39.0-53.0) % Neutrophils # 13.0 H (1.3-7.7) k/uL Lymphocytes # 0.7 L (1.0-4.8) k/uL Sodium 124 L (137-145) mmol/L Chloride 95 L (98-107) mmol/L Creatinine 0.44 L (0.66-1.25) mg/dL Glucose 118 H (74-99) mg/dL Calcium 7.1 L (8.4-10.2) mg/dL Microbiology - Last 24 Hours (Table) 08/18/18 13:34 Gram Stain - Preliminary Pleural Fluid Body Fluid Culture - Preliminary 08/17/18 22:31 Blood Culture - Preliminary Blood No Growth after 24 hours 08/17/18 22:32 Blood Culture - Preliminary Blood No Growth after 24 hours 08/18/18 13:25 Anaerobic Culture - Preliminary Pleural Fluid Assessment and Plan Plan: Assessment: #1. Acute hypoxemic respiratory failure related to acute pneumonia, possibly related to aspiration, with sepsis. Imaging taken at another hospital showed bilateral pneumonia #2. Large loculated left pleural effusion, parapneumonic, status post left- sided thoracentesis on 08/17/2018, cultures and cytology in progress at [facility]. Status post left pigtail chest tube insertion on 08/19/2018, with TPA infusions. #3. Delirium tremens, not currently active, patient was hospitalized for a week at [facility], and was maintained on CIWA #4. Acute Streptococcus pneumonia bacteremia, initially treated with vancomycin, currently on Unasyn. Echocardiogram was completed at [facility] and showed low normal left ventricular function with ejection fraction of 50% #5. Hyponatremia, could be related to history of chronic alcohol use #6. Hypertension #7. Daily EtOH use, several beers a day #8. Chronic and ongoing nicotine dependence, carries 91-kfpb-tivo smoking history Plan: Continue with the current antibiotic coverage, ID service is following, will await the results of the pleural fluid cultures, pleural fluid analysis revealed exudative fluid. No fever or chills, today's chest x-ray shows improvement in the appearance of the loculated left pleural effusion, he received a dose of TPA in the chest tube yesterday, and there has been a total of 1300 mL of the Pleur- evac. CT surgery is following. Daily chest x-rays. Maintain control, encourage deep breathing and coughing and says spirometry use. I performed a history & physical examination of the patient and discussed their management with my nurse practitioner, Kassandra Suarez. I reviewed the nurse practitioner's note and agree with the documented findings and plan of care. Lung sounds are positive for breast sounds on the left, with dullness to percussion. The findings and the impression was discussed with the patient. I attest to the documentation by the nurse practitioner. Time with Patient: Less than 30
--- NOTE | 2018-08-19 11:33 | PN ---
PROGRESS NOTE DATE OF SERVICE: 08/19/2018 REASON FOR FOLLOWUP VISIT: Strep pneumo bacteremia with an aspiration pneumonia. INTERVAL HISTORY: The patient is currently afebrile. The patient is breathing comfortably. The patient is status post chest tube placement left side. Pain is currently controlled. No nausea, no vomiting. No abdominal pain, no diarrhea. PHYSICAL EXAMINATION: Blood pressure is 111/63 with a pulse of 104, temperature 98, he is 94% on 2 L high- flow oxygen. General description is a middle-aged male, up in the room in no distress. RESPIRATORY SYSTEM: Unlabored breathing with decreased breath sounds at the base, no wheeze. HEART: S1, S2. Regular rate and rhythm. ABDOMEN: Soft, no tenderness. LABS: Hemoglobin 10.4, white count of 20.8, BUN of 9, creatinine 0.44 with the pleural fluid cultures currently pending. DIAGNOSTIC IMPRESSION AND PLAN: Patient with aspiration pneumonia with septic bacteremia with concern for local infiltration status post chest tube placement. We are waiting for the pleural fluid culture to finalize. Keep the patient on Unasyn and continue supportive care. MMODL / IJN: [id number] /
[2018-08-19] MEDS: BUDESONIDE 0.5 MG/2 ML NEBU INHALATION SCH ×2 (12:28→20:50)
--- NOTE | 2018-08-19 14:02 | XR ---
EXAMINATION TYPE: XR chest 1V portable DATE OF EXAM: 08/19/2018 Comparison: 08/19/2018 Clinical History: 52-year-old male loculated pleural effusion Findings: Left-sided pleural catheter is present at the lung base. There is enlarging now moderate to large lef t pleural effusion with convex bulging contour suggesting loculation. There seems to be some associat ed mass effect minimally shifting the heart to the right. Mild diffuse interstitial changes are prese nt. Impression: 1. Right basilar pleural catheter in place. Enlarging, now moderate to large sized loculated appearin g left pleural effusion with adjacent atelectasis and/or consolidation. 2. Possible background of mild pulmonary vascular congestion.
[2018-08-19 14:08] LABS: Potassium 3.6 mmol/L (3.5-5.1)
[2018-08-19] MEDS ORDERED: POTASSIUM CHLORIDE ER 20 MEQ TAB.ER PO STA (14:17)
--- NOTE | 2018-08-19 14:18 | P.PN ---
Subjective Patient is seen in follow-up for hyponatremia. Sodium level was 1:30 on August 18 and he was started on IV fluids. This morning his sodium dropped down to 124. Subsequently the fluids were discontinued and he was put on free water restriction. Repeat sodium is 126. His oral intake is fair. Good urine output. No vomiting or diarrhea. Vital signs are stable. General: The patient appeared well nourished and normally developed. HEENT: Head exam is unremarkable. Neck is without jugular venous distension. LUNGS: Lungs are clear to auscultation and percussion. Breath sounds decreased. HEART: Rate and Rhythm are regular. First and second heart sounds normal. No murmurs, rubs or gallops. ABDOMEN: Abdominal exam reveals normal bowel sounds. Non-tender and non- distended. No evidence of peritonitis. EXTREMITITES: No clubbing, cyanosis, or edema. Objective - Vital Signs Vital signs: Vital Signs Temp 98.1 F 08/18/18 20:33 Pulse 64 08/19/18 12:00 Resp 22 08/19/18 12:00 BP 111/60 08/19/18 05:09 Pulse Ox 94 L 08/19/18 05:09 Intake & Output 08/18/18 08/19/18 08/19/18 18:59 06:59 18:59 Intake Total 960 1540 240 Output Total 32 1950 0 Balance 928 -410 240 Weight 59.1 kg 59.2 kg Intake: Oral 960 1540 240 Output: Chest Tube Drainage 32 1300 0 Chest Tube Left 32 1300 0 Urine 650 Other: # Voids 1 # Bowel Movements 1 - Labs CBC & Chem 7: 08/19/18 06:16 08/19/18 13:31 Labs: Abnormal Lab Results - Last 24 Hours (Table) 08/18/18 08/19/18 08/19/18 Range/Units 23:19 06:16 06:16 WBC 15.0 H 20.8 H (3.8-10.6) k/uL RBC 3.39 L 3.19 L (4.30-5.90) m/uL Hgb 11.1 L 10.2 L (13.0-17.5) gm/dL Hct 33.8 L 31.9 L (39.0-53.0) % Neutrophils # 13.0 H (1.3-7.7) k/uL Lymphocytes # 0.7 L (1.0-4.8) k/uL Sodium 124 L (137-145) mmol/L Chloride 95 L (98-107) mmol/L Creatinine 0.44 L (0.66-1.25) mg/dL Glucose 118 H (74-99) mg/dL Calcium 7.1 L (8.4-10.2) mg/dL 08/19/18 Range/Units 13:31 WBC (3.8-10.6) k/uL RBC (4.30-5.90) m/uL Hgb (13.0-17.5) gm/dL Hct (39.0-53.0) % Neutrophils # (1.3-7.7) k/uL Lymphocytes # (1.0-4.8) k/uL Sodium 126 L (137-145) mmol/L Chloride 95 L (98-107) mmol/L Creatinine (0.66-1.25) mg/dL Glucose (74-99) mg/dL Calcium (8.4-10.2) mg/dL Microbiology - Last 24 Hours (Table) 08/18/18 13:34 Gram Stain - Preliminary Pleural Fluid Body Fluid Culture - Preliminary 08/17/18 22:31 Blood Culture - Preliminary Blood No Growth after 24 hours 08/17/18 22:32 Blood Culture - Preliminary Blood No Growth after 24 hours 08/18/18 13:25 Anaerobic Culture - Preliminary Pleural Fluid Assessment and Plan Plan: Assessment: 1. Hyponatremia. Currently appears euvolemic. 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 Urine sodium and osmolality are both quite elevated. TSH is normal. 2. Bilateral pneumonia. 3. Strep pneumonia bacteremia maintained on IV antibiotics. 4. Left-sided loculated hemorrhagic pleural effusion status post chest tube insertion on August 18. 5. Benign hypertension. Controlled. 6. Hypovolemia from poor oral intake. Plan: Maintain 1200 mL fluid restriction. Add ensure 3 times daily with meals. Encouraged oral intake, particularly protein. Replace potassium. 40 mEq today. Repeat electrolytes in the morning.
--- NOTE | 2018-08-19 16:29 | P.PN ---
Subjective Progress Note Date: 08/19/18 Principal diagnosis: Left loculated pleural effusion, parapneumonic, status post pigtail insertion, status post alteplase instillation; pneumonia with recent sepsis and lactic acid osis; acute hypoxemic respiratory failure upon admission; hyponatremia. Previous medical history of heavy tobacco abuse, EtOH abuse, hypertension. The patient is currently sitting up in bed in no acute distress. Had an episode last night of difficulty breathing and pain, chest x-ray was completed demonstrating decrease in pleural effusion. Patient did have a significant output from the pigtail catheter with instillation of alteplase yesterday. Currently pain is much better controlled in his breathing is better. Objective - Vital Signs Vital signs: Vital Signs Temp 98.1 F 08/18/18 20:33 Pulse 64 08/19/18 12:00 Resp 22 08/19/18 12:00 BP 111/60 08/19/18 05:09 Pulse Ox 94 L 08/19/18 05:09 Intake & Output 08/18/18 08/19/18 08/19/18 18:59 06:59 18:59 Intake Total 960 1540 340 Output Total 32 1950 0 Balance 928 -410 340 Weight 59.1 kg 59.2 kg Intake: Oral 960 1540 340 Output: Chest Tube Drainage 32 1300 0 Chest Tube Left 32 1300 0 Urine 650 Other: # Voids 1 # Bowel Movements 1 - Constitutional General appearance: Present: cooperative, no acute distress, thin - Respiratory Details: Lungs sounds diminished bilaterally, left greater than right. Respirations even, nonlabored. Currently on 6 L nasal cannula oxygen saturation 94%. Able to achieve 1000 mL on his incentive spirometry. Left sided pigtail catheter present, connected to continuous wall suction, 1300 mL bloody output since alteplase instillation yesterday. - Cardiovascular Details: S1, S2 present. Regular rate and rhythm, sinus rhythm on telemetry. Palpable peripheral pulses bilaterally. No edema present. No calf pain or tenderness noted. - Gastrointestinal Gastrointestinal Comment(s): Abdomen soft, nontender, nondistended. Active bowel sounds 4 quadrants. Tolerating diet. - Genitourinary Genitourinary Comment(s): Continues to void clear, yellow urine. - Integumentary Integumentary Comment(s): Skin is warm and dry with evidence of good perfusion. Pigtail site covered with clean dry dressing. - Neurologic Neurologic: Present: CNII-XII intact - Musculoskeletal Musculoskeletal: Present: gait normal, strength equal bilaterally - Psychiatric Psychiatric: Present: A&O x's 3, appropriate affect, intact judgment & insight - Allied health notes Allied health notes reviewed: nursing - Labs CBC & Chem 7: 08/19/18 06:16 08/19/18 13:31 Labs: Abnormal Lab Results - Last 24 Hours (Table) 08/18/18 08/19/18 08/19/18 Range/Units 23:19 06:16 06:16 WBC 15.0 H 20.8 H (3.8-10.6) k/uL RBC 3.39 L 3.19 L (4.30-5.90) m/uL Hgb 11.1 L 10.2 L (13.0-17.5) gm/dL Hct 33.8 L 31.9 L (39.0-53.0) % Neutrophils # 13.0 H (1.3-7.7) k/uL Lymphocytes # 0.7 L (1.0-4.8) k/uL Sodium 124 L (137-145) mmol/L Chloride 95 L (98-107) mmol/L Creatinine 0.44 L (0.66-1.25) mg/dL Glucose 118 H (74-99) mg/dL Calcium 7.1 L (8.4-10.2) mg/dL 08/19/18 Range/Units 13:31 WBC (3.8-10.6) k/uL RBC (4.30-5.90) m/uL Hgb (13.0-17.5) gm/dL Hct (39.0-53.0) % Neutrophils # (1.3-7.7) k/uL Lymphocytes # (1.0-4.8) k/uL Sodium 126 L (137-145) mmol/L Chloride 95 L (98-107) mmol/L Creatinine (0.66-1.25) mg/dL Glucose (74-99) mg/dL Calcium (8.4-10.2) mg/dL Microbiology - Last 24 Hours (Table) 08/18/18 13:34 Gram Stain - Preliminary Pleural Fluid Body Fluid Culture - Preliminary 08/17/18 22:31 Blood Culture - Preliminary Blood No Growth after 24 hours 08/17/18 22:32 Blood Culture - Preliminary Blood No Growth after 24 hours 08/18/18 13:25 Anaerobic Culture - Preliminary Pleural Fluid - Imaging and Cardiology Chest x-ray: report reviewed, image reviewed Assessment and Plan Assessment: 1. Left-sided loculated pleural effusion, parapneumonic, status post thoracentesis and pigtail insertion 2. Current tobacco abuse, one half packs per day for 34 years 3. COPD 4. Alcohol abuse, 12 pack of beer per day 5. Community-acquired versus aspiration pneumonia, strep pneumonia bacteremia 6. Sepsis with lactic acidosis, acute hypoxemic respiratory failure upon admission to [facility] 7. Hyponatremia 8. Previous history of hypertension, currently off medication Plan: 1. Alteplase instilled again today, allow 1 hour dwell time. 2. Will continue to instill alteplase daily as long as draining. No surgical intervention at this point in time. 3. Encourage smoking and alcohol cessation. 4. Wean O2 as tolerated. Encourage incentive spirometry 10 times every hour while awake. 5. Antibiotics per infectious disease. 6. Will check two-view chest x-ray tomorrow morning. 7. Increase activity as tolerated. Patient may be clamped for short periods of time to ambulate. 8. Medical management of other comorbidities per primary care, pulmonology, infectious disease. 9. We'll continue to follow and make recommendations based on patient's progress. Time with Patient: Greater than 30
[2018-08-20] MEDS: KETOROLAC 30 MG/ML 1 ML VIAL IVP SCH ×4 (06:24→23:19)
[2018-08-20] MEDS: PANTOPRAZOLE 40 MG TABLET PO SCH ×2 (06:24→17:22)
[2018-08-20] MEDS: AMPICILLIN-SULBACTAM 3 GM in SODIUM CHLORIDE 0.9% 100 ML IVPB SCH ×4 (06:28→23:19)
[2018-08-20 06:36] LABS: HCT 28.9 % (39.0-53.0); HGB 9.7 gm/dL (13.0-17.5); MCH 33.2 pg (25.0-35.0); MCHC 33.5 g/dL (31.0-37.0); MCV 99.1 fL (80.0-100.0); Mean Platelet Volume 7.6; Platelet Count 447 k/uL (150-450); RBC 2.91 m/uL (4.30-5.90); RDW 12.8 % (11.5-15.5); WBC 16.3 k/uL (3.8-10.6)
[2018-08-20 07:04] LABS: Anion Gap 6 mmol/L; Blood Urea Nitrogen 9 mg/dL (9-20); Carbon Dioxide 25 mmol/L (22-30); Chloride 97 mmol/L (98-107); Glucose 88 mg/dL (74-99); Magnesium 2.3 mg/dL (1.6-2.3); Potassium 3.8 mmol/L (3.5-5.1); Sodium 128 mmol/L (137-145)
[2018-08-20] MEDS: NICOTINE 21MG/24HR PATCH TRANSDERM SCH (08:49)
[2018-08-20] MEDS: ASPIRIN 81 MG PO SCH (08:49)
[2018-08-20] MEDS: MAGNESIUM OXIDE 400 MG TAB PO SCH (08:49)
[2018-08-20] MEDS: ENOXAPARIN 40 MG/0.4 ML SYRINGE SQ SCH (08:49)
[2018-08-20] MEDS: PHENobarbital 32.4 MG TAB PO SCH ×2 (08:50→19:04)
--- NOTE | 2018-08-20 08:50 | XR ---
EXAMINATION TYPE: XR chest 2V DATE OF EXAM: 08/20/2018 COMPARISON: 08/19/2018 HISTORY: Pleural effusion. Follow-up exam. TECHNIQUE: Frontal and lateral views of the chest are obtained. FINDINGS: There is improved degree of the left-sided pleural effusion, now layering and small. Left basilar airspace disease remains. Multifocal reticular opacities throughout the lungs suggest underly ing fibrosis an interstitial lung disease. Cardiomediastinal silhouette is partially obscured but ove rall stable. Osseous structures are grossly intact. IMPRESSION: Improved left pleural effusion, now layering without apparent loculation. Underlying pul monary fibrosis is suspected.
[2018-08-20] MEDS: BUDESONIDE 0.5 MG/2 ML NEBU INHALATION SCH ×2 (09:45→19:28)
--- NOTE | 2018-08-20 11:37 | P.PN ---
Subjective Progress Note Date: 08/20/18 Principal diagnosis: Loculated left pleural effusion, parapneumonic This is a 52-year-old white male patient that does not have a primary care provider, with past medical history of EtOH abuse, nicotine dependence, who was transferred from [facility] on 08/17/2018 after being hospitalized there for about a week since 08/10/2018. Patient initially presented to [facility] to the hospital with complaints of weakness, shortness of breath, disorientation, he could hardly walk related to his severe dyspnea. He sustained a fall at home, but did not sustain any apparent injuries. Denied any fever or chills, denied any significant cough or congestion, no pleurisy, no chest wall tenderness, no hemoptysis. No nausea, no vomiting or diarrhea, no abdominal pain. H drinks several beers a day on a regular basis, smokes about a pack a day for 34 years, denies any underlying chronic lung condition, not on any oxygen, not any breathing medications or any other prescription medications. 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 Initial chest x-ray showed right upper and left lower lobe infiltrates with small left effusion and suspected nodular pattern over the right upper lobe suspicious for neoplasm. CT chest was completed and showed bilateral areas of consolidation with small left effusion, with a 1.7 cm of loca lized focal consolidation or nodule in the right upper lobe. Patient had a right-sided thoracentesis on 08/17/2018, a follow-up chest x-ray showed moderate to large left loculated pleural effusion, but improvements in the appearance of the left upper lobe infiltrate and right midlung infiltrate. Patient was found to have Cryptococcus pneumonia bacteremia, initially was treated with vancomycin but then switched to Unasyn, which he remains. Patient was transferred to a [facility] on 08/17/2018 with a consult to direction radiology for a pigtail chest tube placement for a loculated left pleural effusion. Chest x-ray completed at this hospital on 08/18/2018 shows a large locular left pleural effusion, or lying mass is not excluded there is mild increased lung markings in the right perihilar region, and a minimal right pleural effusion. Blood work showed white blood cell count of 17.4, hemoglobin of 10.6, INR today is 1.3, sodium is 1:30, potassium is 4.0, chloride is 98, BUN is 9 and creatinine 0.50, AST was 61, ALT was 59, alk phos was 53. Patient is awake and alert, currently in no distress, lung sounds reveal diminished breath sounds on the left, with dullness to percussion, no signs of active delirium, no tremors, no headaches, confusion. Patient is on 6 L per nasal cannula, and his pulse ox is around 94%, he is afebrile, hemodynamically stable. Continues on current antibiotics in the form of Unasyn, he is on nebulized bronchodilators, and Pulmicort. He was on CIWA protocol at [facility]. On 08/19/2018 patient seen in follow-up on the selective care unit, states he didn't sleep well last night, was having discomfort in his left chest. But overall his breathing is stable, he states his not short of breath, productive cough, bringing up some whitish yellowish colored sputum. No fever or chills. Patient received a dose of TPA in the left-sided pigtail chest tube catheter, there has been 1300 mL of dark serosanguineous fluid in the Pleur-evac in the last 24 hours. Today's chest x-ray showed improvement in the size of the left pleural effusion, no pneumothorax. Cytologies pending, cultures are pending, pleural fluid analysis showed exudative fluid. Antibiotic coverage in the form of Unasyn, ID service is following, no fever or chills. Knees on 6 L per high flow nasal cannula, and his pulse ox is 91-94%, hemodynamically stable. On 08/20/2018 patient seen in follow-up on selective care unit, he is resting comfortably in bed, he states his breathing is much easier, less chest tightness, and chest discomfort, his pulse ox is 96% on 3 L, room air pulse ox is 90-92%. His workmen's incentive spirometer, able to achieve 1500, patient was given a dose of TPA yesterday, and there has been 4500 mL of serosanguineous pleural fluid drainage last 24 hours from the left-sided pigtail chest tube catheter. Pleural fluid Gram stain showed no growth at the 24 hours. Blood cultures were negative, pleural fluid cytologies pending. Fever or chills, and today's lab work has been reviewed, white blood cell, 16.3, hemoglobin is 9.7, sodium is 128, potassium is 3.8, chloride is 97, B1 is 90 and creatinine 0.44. Patient has been ambulating to the bathroom and back, tolerating activity fairly well. Lung sounds reveal diminished breath sounds over left lower lobe, with some scattered rales. Objective - Vital Signs Vital signs: Vital Signs Temp 97.1 F L 08/20/18 09:00 Pulse 96 08/20/18 09:00 Resp 16 08/20/18 09:00 BP 115/58 08/20/18 09:00 Pulse Ox 96 08/20/18 09:00 Intake & Output 08/19/18 08/20/18 08/20/18 18:59 06:59 18:59 Intake Total 340 240 Output Total 1200 3750 Balance -860 -3750 240 Weight 59.1 kg Intake: Oral 340 240 Output: Chest Tube Drainage 1200 3300 Chest Tube Left 1200 3300 Urine 450 Other: # Voids 1 1 # Bowel Movements 1 - Exam GENERAL EXAM: Alert, pleasant, thin, 52-year-old white male, on 6 L per nasal cannula, comfortable in no apparent distress. HEAD: Normocephalic/atraumatic. EYES: Normal reaction of pupils, equal size. Conjunctiva pink, sclera white. NOSE: Clear with pink turbinates. THROAT: No erythema or exudates. NECK: No masses, no JVD, no thyroid enlargement, no adenopathy. CHEST: No chest wall deformity. Symmetrical expansion. Left-sided pigtail chest tube catheter connected to a Pleur-evac and wall suction, with dark serosanguineous pleural fluid in the Pleur-evac, no air leak noted LUNGS: Equal air entry with diminished breath sounds over left mid and lower lobe and dullness to percussion over the same area, better aeration noted on today's exam. CVS: Regular rate and rhythm, normal S1 and S2, no gallops, no murmurs, no rubs ABDOMEN: Soft, nontender. No hepatosplenomegaly, normal bowel sounds, no guarding or rigidity. EXTREMITIES: No clubbing, no edema, no cyanosis, 2+ pulses and upper and lower extremities. MUSCULOSKELETAL: Muscle strength and tone normal. SPINE: No scoliosis or deformity SKIN: No rashes CENTRAL NERVOUS SYSTEM: Alert and oriented -3. No focal deficits, tone is normal in all 4 extremities. PSYCHIATRIC: Alert and oriented -3. Appropriate affect. Intact judgment and insight. - Labs CBC & Chem 7: 08/20/18 06:01 08/20/18 06:01 Labs: Abnormal Lab Results - Last 24 Hours (Table) 08/19/18 08/20/18 08/20/18 Range/Units 13:31 06:01 06:01 WBC 16.3 H (3.8-10.6) k/uL RBC 2.91 L (4.30-5.90) m/uL Hgb 9.7 L (13.0-17.5) gm/dL Hct 28.9 L (39.0-53.0) % Sodium 126 L 128 L (137-145) mmol/L Chloride 95 L 97 L (98-107) mmol/L Creatinine 0.44 L (0.66-1.25) mg/dL Calcium 7.0 L (8.4-10.2) mg/dL Microbiology - Last 24 Hours (Table) 08/17/18 22:31 Blood Culture - Preliminary Blood No Growth after 48 hours 08/17/18 22:32 Blood Culture - Preliminary Blood No Growth after 48 hours 08/18/18 13:34 Gram Stain - Preliminary Pleural Fluid Body Fluid Culture - Preliminary Assessment and Plan Plan: Assessment: #1. Acute hypoxemic respiratory failure related to acute pneumonia, possibly related to aspiration, with sepsis. Imaging taken at another hospital showed bilateral pneumonia #2. Large loculated left pleural effusion, parapneumonic, status post left- sided thoracentesis on 08/17/2018, cultures and cytology in progress at [facility]. Status post left pigtail chest tube insertion on 08/19/2018, with TPA infusions. #3. Delirium tremens, not currently active, patient was hospitalized for a week at [facility], and was maintained on CIWA #4. Acute Streptococcus pneumonia bacteremia, initially treated with vancomycin, currently on Unasyn. Echocardiogram was completed at [facility] and showed low normal left ventricular function with ejection fraction of 50% #5. Hyponatremia, could be related to history of chronic alcohol use #6. Hypertension #7. Daily EtOH use, several beers a day #8. Chronic and ongoing nicotine dependence, carries [id number] smoking history Plan: Continue current antibiotic coverage, pleural fluid cultures remain negative thus far. No fever or chills, there has been an additional 4500 mL of dark serosanguineous pleural fluid output from the chest tube. Anticipate another dose of TPA instilled today, CT surgery is managing the chest tube, and the TPA infusions. Today's chest x-ray shows improved left pleural effusion, no layering without apparent loculation, and there is underlying pulmonary fibrosis suspected, cytology is pending. The patient is improving, continue weaning FiO2, ambulate the patient, encouraged spirometry use. I performed a history & physical examination of the patient and discussed their management with my nurse practitioner, Kassandra Suarez. I reviewed the nurse practitioner's note and agree with the documented findings and plan of care. Lung sounds are positive for breast sounds on the left, with dullness to percussion. The findings and the impression was discussed with the patient. I attest to the documentation by the nurse practitioner. Time with Patient: Less than 30
[2018-08-20] MEDS: FOLIC ACID 1 MG TAB PO SCH (11:42)
[2018-08-20] MEDS: THIAMINE 100 MG TAB PO SCH (11:42)
--- NOTE | 2018-08-20 11:55 | P.PN ---
Subjective Progress Note Date: 08/20/18 Principal diagnosis: shortness of breath Patient is a 52-year-old male with a past medical history of hypertension and pneumonia who was transferred here from [facility]. He had been hospitalized on 08/10/2018 for chest pain, tachycardia, and shortness of breath. During that hospitalization he was found to have pneumonia possibly secondary to aspiration, sepsis, severe delirium tremens not responsive to benzodiazepines, and strep pneumonia bacteremia. He is being followed by the hospitalist service, pulmonary, and infectious disease. He was started on Unasyn. He had initially been progressing well and his DTs were improving they were able to decrease his medications. He was placed on oral phenobarbital. His white blood cell count had initially been decreasing but then began to elevate. At that time they performed a CT which showed a loculated pleural effusion. He underwent thoracentesis on 08/17 however the found effusion was found to be persistent and loculated. Repeat blood cultures were obtained and were negative. Pulmonary then recommended transfer to our facility for loculated empyema. He was also noted to have persistent hyponatremia throughout his hospitalization at [facility]. He was seen by interventional radiology and had a pigtail catheter placed on 08/18. He was seen by cardiothoracic and had TPA instilled on the evening of 08/18. He was found to have a hemorrhagic effusion. 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 He was seen by nephrology. Pt. reports that he is breathing better now and is not using oxygen and nhis pulse O2 is 92% at rest. He reports that his appetite is improving and he ate all his breakfast this morning. He also reports that he walked in the room with therapy and did well. Pt. continues to have drainage from his left chest tube and in two hours his output was 175 cc. He reports that his pain is well controlled. Pt. reported that he never had withdrawal from Alcohol and he thinks that he was very sick and confused that was taken as DT's. In review of the labs it was noted that pt's WBC is improving along with Na. Pt. denies F/C, CP, N/V, Diaphoresis, Dizziness and denies rest of the ROS. Objective - Vital Signs Vital signs: Vital Signs Temp 97.1 F L 08/20/18 09:00 Pulse 96 08/20/18 09:00 Resp 16 03/08/19 09:00 BP 115/58 08/20/18 09:00 Pulse Ox 96 08/20/18 09:00 Intake & Output 08/19/18 08/20/18 08/20/18 18:59 06:59 18:59 Intake Total 340 240 Output Total 1200 3750 Balance -860 -3750 240 Weight 59.1 kg Intake: Oral 340 240 Output: Chest Tube Drainage 1200 3300 Chest Tube Left 1200 3300 Urine 450 Other: # Voids 1 1 # Bowel Movements 1 - Constitutional General appearance: Present: cooperative, no acute distress, thin - EENT Eyes: Present: anicteric sclerae, EOMI, normal appearance ENT: Present: hearing grossly normal - Neck Neck: Present: normal ROM. Absent: lymphadenopathy, rigidity, stridor, thyromegaly - Respiratory Respiratory: - Cardiovascular Rhythm: regular Heart sounds: Abnormal Heart Sounds: Absent: systolic murmur, diastolic murmur, rub, S3 Gallop, S4 Gallop - Gastrointestinal General gastrointestinal: Present: normal bowel sounds, soft. Absent: distende d, organomegaly, rigid, scaphoid, tenderness - Labs CBC & Chem 7: 08/20/18 06:01 08/20/18 06:01 Labs: Abnormal Lab Results - Last 24 Hours (Table) 08/19/18 08/20/18 08/20/18 Range/Units 13:31 06:01 06:01 WBC 16.3 H (3.8-10.6) k/uL RBC 2.91 L (4.30-5.90) m/uL Hgb 9.7 L (13.0-17.5) gm/dL Hct 28.9 L (39.0-53.0) % Sodium 126 L 128 L (137-145) mmol/L Chloride 95 L 97 L (98-107) mmol/L Creatinine 0.44 L (0.66-1.25) mg/dL Calcium 7.0 L (8.4-10.2) mg/dL Microbiology - Last 24 Hours (Table) 08/17/18 22:31 Blood Culture - Preliminary Blood No Growth after 48 hours 08/17/18 22:32 Blood Culture - Preliminary Blood No Growth after 48 hours 08/18/18 13:34 Gram Stain - Preliminary Pleural Fluid Body Fluid Culture - Preliminary Assessment and Plan (1) Pleural effusion associated with pulmonary infection Current Visit: Yes Status: Acute Code(s): J18.9 - PNEUMONIA, UNSPECIFIED ORGANISM; J91.8 - PLEURAL EFFUSION IN OTHER CONDITIONS CLASSIFIED ELSEWHERE SNOMED Code(s): 97680004 (2) Bacteremia Current Visit: Yes Status: Acute Code(s): R78.81 - BACTEREMIA SNOMED Code(s): 6524179 (3) Hyponatremia Current Visit: Yes Status: Acute Code(s): E87.1 - HYPO-OSMOLALITY AND HYPONATREMIA SNOMED Code(s): 42650245 (4) Pneumonia Current Visit: Yes Status: Acute Code(s): J18.9 - PNEUMONIA, UNSPECIFIED ORGANISM SNOMED Code(s): 904361990 Plan: Bilateral pneumonia, possible aspiration, on Unasyn and improving. Continue COPD treatment with Duoneb and Budesonide along with pulmonary hygiene. Strep pneumonia bacteremia -ID was on case and their recs appreciated for Abx use. -Continue with Unasyn Left-sided loculated hemorrhagic pleural effusion s/p CT with TPA on 08/18 -pain control - Chest Tube to sucction - cardiothorasic recs appreciated. Hyponatremia due to SIADH -nephro recs -Sodium improving post d/c of I/V hydration. will continue 1.2L fluid restriction. Acute hypoxic respiratory failure -Clinically improving with current management, pt. need to stay in the hospital for another 24 to 48 hours prior to d/c. Delirium tremens, significantly improving -On phenobarb, thiamine and folic acid - social work recs Hypertension, now controlled - follow BP - prn catapres Resolved: Sepsis Toxic metabolic encephalopathy secondary to delirium tremens DVT prophylaxis:Lovenox Discussed with: Patient, nursing Anticipated discharge: 24-48 hours, still has chest tube and possible plan for d/c in AM and theen will monitor for [address] d/c an dif remains stable then d/c home. Anticipated discharge place: home A total of 40 minutes was spent on the care of this complex patient more than 50% of the time was spent in counseling and care coordination. Time with Patient: Greater than 30
--- NOTE | 2018-08-20 14:02 | P.PN ---
Subjective Progress Note Date: 08/20/18 Principal diagnosis: Left loculated pleural effusion, parapneumonic, status post left pleural pigtail insertion, status post alteplase instillation; pneumonia with recent sepsis and lactic acidosis; acute hypoxemic respiratory failure upon admission; hyponatremia. Previous medical history of heavy tobacco abuse, EtOH abuse and hypertension. Patient is sitting up to the bedside edge. He is in no acute distress. He reports that he is feeling much better today, denies any complaints of pain or shortness of breath. He reports since having the alteplase infusion he feels li ke the chest tube has been draining and his breathing has been getting better. His left pleural pigtail catheter remains in place and draining thin serosanguineous drainage. 3100 mL output in the last 24 hours. Objective - Vital Signs Vital signs: Vital Signs Temp 97.2 F L 08/20/18 12:57 Pulse 100 08/20/18 12:57 Resp 16 08/20/18 12:57 BP 140/63 08/20/18 12:57 Pulse Ox 96 08/20/18 13:06 Intake & Output 08/19/18 08/20/18 08/20/18 18:59 06:59 18:59 Intake Total 340 480 Output Total 1200 3750 Balance -860 -3750 480 Weight 59.1 kg 59.1 kg Intake: Oral 340 480 Output: Chest Tube Drainage 1200 3300 Chest Tube Left 1200 3300 Urine 450 Other: # Voids 1 1 # Bowel Movements 1 - Constitutional General appearance: Present: cooperative, no acute distress, thin - Respiratory Details: Lung sounds are essentially clear to his bilateral upper lobes, diminished to his bilateral bases. Respirations are symmetrical and nonlabored. Oxygen saturation are 96% on 3 L nasal cannula. He is achieving 1250 mL on his incentive spirometry. Left pleural pigtail catheter in place draining thin serosanguineous drainage. Air leak is present. Drained 3.1 L in the last 24 hours. - Cardiovascular Details: Regular rhythm and rate. S1 and S2 present, negative for S3, gallop or murmur. No edema present. - Gastrointestinal Gastrointestinal Comment(s): Abdomen is soft, nontender and nondistended. Active bowel sounds all 4 abdominal quadrants. Tolerating oral intake. No guarding or rigidity. - Genitourinary Genitourinary Comment(s): Voiding clear yellow urine. - Integumentary Integumentary Comment(s): Skin is warm and dry. No clubbing or cyanosis is present. Left pleural pigtail catheter dressing is clean, dry and intact. - Neurologic Neurologic: Present: CNII-XII intact - Musculoskeletal Musculoskeletal: Present: gait normal, strength equal bilaterally - Psychiatric Psychiatric: Present: A&O x's 3, appropriate affect, intact judgment & insight - Allied health notes Allied health notes reviewed: nursing - Labs CBC & Chem 7: 08/20/18 06:01 08/20/18 06:01 Labs: Abnormal Lab Results - Last 24 Hours (Table) 08/19/18 08/20/18 08/20/18 Range/Units 13:31 06:01 06:01 WBC 16.3 H (3.8-10.6) k/uL RBC 2.91 L (4.30-5.90) m/uL Hgb 9.7 L (13.0-17.5) gm/dL Hct 28.9 L (39.0-53.0) % Sodium 126 L 128 L (137-145) mmol/L Chloride 95 L 97 L (98-107) mmol/L Creatinine 0.44 L (0.66-1.25) mg/dL Calcium 7.0 L (8.4-10.2) mg/dL Microbiology - Last 24 Hours (Table) 08/18/18 13:34 Gram Stain - Preliminary Pleural Fluid Body Fluid Culture - Preliminary 08/17/18 22:31 Blood Culture - Preliminary Blood No Growth after 48 hours 08/17/18 22:32 Blood Culture - Preliminary Blood No Growth after 48 hours - Imaging and Cardiology Chest x-ray: report reviewed, image reviewed Assessment and Plan Assessment: 1. Left-sided loculated pleural effusion, parapneumonic, status post thorace ntesis and pigtail insertion 2. Current tobacco abuse, one half packs per day for 34 years 3. COPD 4. Alcohol abuse, 12 pack of beer per day 5. Community-acquired versus aspiration pneumonia, strep pneumonia bacteremia 6. Sepsis with lactic acidosis, acute hypoxemic respiratory failure upon adm ission to [facility] 7. Hyponatremia 8. Previous history of hypertension, currently off medication Plan: 1. Alteplase instilled again today, allow 1 hour dwell time. 2. No surgical intervention at this point in time, as his pigtail catheter remains draining post alteplase instillation. 3. Encourage smoking and alcohol cessation. 4. Wean O2 as tolerated. Encourage incentive spirometry 10 times every hour while awake. 5. Antibiotics management per infectious disease. 6. Will continue to monitor x-ray daily. 7. Increase activity as tolerated. Patient may be clamped for short periods of time to ambulate. 8. Medical management of other comorbidities per primary care, pulmonology, infectious disease. 9. Further recommendations to follow based on patient's clinical course. Time with Patient: Greater than 30
[2018-08-20] MEDS: ALTEPLASE 10 MG in SODIUM CHLORIDE 0.9% 100 ML IRRIGATION ONE (15:12)
--- NOTE | 2018-08-20 16:22 | PN ---
PROGRESS NOTE DATE OF SERVICE: 08/20/2018. REASON FOR FOLLOWUP: Pneumonia and pleural effusion/empyema. INTERVAL HISTORY: The patient is currently afebrile. The patient's left lower chest pain slightly decreased in intensity. She continues to have some complaints of sputum. No nausea, vomiting. No abdominal pain. No diarrhea. PHYSICAL EXAMINATION: Blood pressure 140/63 with a pulse of 100. Temperature 97.2. He is 96% on 3 L nasal cannula. General description is a middle-aged male lying in bed in no distress. Respiratory system: Unlabored breathing with decreased breath sounds in the bases. Heart S1, S2. Regular rate and rhythm. Abdomen soft, no tenderness. LABS: Hemoglobin is 9.7, white count 16.3 with a BUN of 9, creatinine 0.44. DIAGNOSTIC IMPRESSION AND PLAN: Patient with aspiration pneumonia, strep bacteremia and parapneumonic effusion, concern for empyema status post chest tube for TPA placement today. Continue with Unasyn while monitor his clinical course closely. Continue supportive care. MMODL / IJN: [id number] /
--- NOTE | 2018-08-20 22:49 | PN ---
PROGRESS NOTE Patient is seen for followup for hyponatremia. His sodium level had worsened with normal saline and is currently improving with fluid restriction. The patient was admitted for loculated empyema after streptococcal pneumonia and sepsis. He had tPA injection. Currently, patient is awake, comfortable. He denies any significant complaints. He states he is feeling much better. Breathing has improved. PHYSICAL EXAMINATION: Blood pressure was 111/55, heart rate of 100 per minute, patient is afebrile. Examination of the heart S1, S2. Examination lungs crackles heard on the left lung with decreased breath sounds. Abdomen is soft, nontender. Examination lower extremities shows no evidence of edema. STRATIGRAPHER exam is grossly intact. LABS SHOW: Show sodium 128, potassium 3.8, chloride 97, BUN 9, serum creatinine 0.4 mg/dL. Hemoglobin was 9.7. ASSESSMENT: 1. Euvolemic hyponatremia, most likely secondary to SIADH, currently improving with fluid restriction. The patient is encouraged to increase his oral protein intake. Repeat serum sodium in a.m. 2. Status post streptococcus pneumonia bacteremia and sepsis. 3. Bilateral pneumonia from streptococcus pneumonia with loculated empyema, status post tPA. 4. Hypertension, controlled. PLAN: Maintain fluid restriction, repeat labs in a.m. and increase protein intake. MMODL / IJN: [id number] /
[2018-08-21] MEDS: HYDROcodone/APAP 5-325MG 1 EACH TAB PO PRN (04:56)
[2018-08-21] MEDS: AMPICILLIN-SULBACTAM 3 GM in SODIUM CHLORIDE 0.9% 100 ML IVPB SCH ×3 (04:57→18:21)
[2018-08-21] MEDS: PANTOPRAZOLE 40 MG TABLET PO SCH ×2 (06:32→18:20)
[2018-08-21] MEDS: KETOROLAC 30 MG/ML 1 ML VIAL IVP SCH ×3 (06:33→18:32)
[2018-08-21 07:07] LABS: HCT 28.4 % (39.0-53.0); HGB 9.3 gm/dL (13.0-17.5); MCH 32.7 pg (25.0-35.0); MCHC 32.6 g/dL (31.0-37.0); MCV 100.1 fL (80.0-100.0); Mean Platelet Volume 8.1; Platelet Count 441 k/uL (150-450); RBC 2.83 m/uL (4.30-5.90); RDW 12.8 % (11.5-15.5)
[2018-08-21 07:17] LABS: Anion Gap 8 mmol/L; Blood Urea Nitrogen 7 mg/dL (9-20); Carbon Dioxide 24 mmol/L (22-30); Chloride 97 mmol/L (98-107); Glucose 84 mg/dL (74-99); Potassium 3.8 mmol/L (3.5-5.1); Sodium 129 mmol/L (137-145)
--- NOTE | 2018-08-21 07:34 | XR ---
EXAMINATION TYPE: XR chest 1V portable DATE OF EXAM: 08/21/2018 COMPARISON: 08/20/2018 HISTORY: Pleural effusion. Follow-up exam. TECHNIQUE: Single frontal view of the chest is obtained. FINDINGS: There is a persistent small left pleural effusion and diffuse interstitial edema with susp ected underlying pulmonary fibrosis. Cardia mediastinal silhouette is partially obscured but appears stable. Osseous structures are grossly intact. No sizable pneumothorax. IMPRESSION: Stable small left pleural effusion with mild interstitial edema and underlying pulmonary fibrosis suspected.
[2018-08-21] MEDS: IPRATROPIUM-ALBUTEROL 3 ML NEB INHALATION PRN ×4 (08:09→19:53)
[2018-08-21] MEDS: BUDESONIDE 0.5 MG/2 ML NEBU INHALATION SCH ×2 (08:09→19:53)
[2018-08-21] MEDS: MAGNESIUM OXIDE 400 MG TAB PO SCH (09:19)
[2018-08-21] MEDS: ASPIRIN 81 MG PO SCH (09:19)
[2018-08-21] MEDS: NICOTINE 21MG/24HR PATCH TRANSDERM SCH (09:19)
[2018-08-21] MEDS: ENOXAPARIN 40 MG/0.4 ML SYRINGE SQ SCH (09:19)
--- NOTE | 2018-08-21 09:26 | P.PN ---
Subjective Patient is seen in follow-up for hyponatremia. Sodium level is up to 129 this morning. He is maintained on fluid restriction. Oral intake is much improved. Still has a chest tube in place. Vital signs are stable. General: The patient appeared well nourished and normally developed. HEENT: Head exam is unremarkable. Neck is without jugular venous distension. LUNGS: Breath sounds decreased. HEART: Rate and Rhythm are regular. First and second heart sounds normal. No murmurs, rubs or gallops. ABDOMEN: Abdominal exam reveals normal bowel sounds. Non-tender and non- distended. No evidence of peritonitis. EXTREMITITES: No clubbing, cyanosis, or edema. Objective - Vital Signs Vital signs: Vital Signs Temp 97.2 F L 08/21/18 04:00 Pulse 90 08/21/18 08:22 Resp 17 08/21/18 04:00 BP 140/62 08/20/18 17:00 Pulse Ox 94 L 08/21/18 08:09 Intake & Output 08/20/18 08/21/18 08/21/18 18:59 06:59 18:59 Intake Total 960 900 Output Total 1400 Balance 960 -500 Weight 59.1 kg 57.3 kg Intake: Intake, IV Titration 100 Amount Ampicillin-Sulbactam 3 gm 100 In Sodium Chloride 0.9% 100 ml @ 200 mls/hr IVPB Q6HR [facility] Rx#:[id number] Oral 960 800 Output: Chest Tube Drainage 500 Chest Tube Left 500 Urine 900 Other: Voiding Method Urinal # Voids 1 - Labs CBC & Chem 7: 08/21/18 05:53 08/21/18 05:53 Labs: Abnormal Lab Results - Last 24 Hours (Table) 08/21/18 08/21/18 Range/Units 05:53 05:53 WBC 11.0 H (3.8-10.6) k/uL RBC 2.83 L (4.30-5.90) m/uL Hgb 9.3 L (13.0-17.5) gm/dL Hct 28.4 L (39.0-53.0) % MCV 100.1 H (80.0-100.0) fL Sodium 129 L (137-145) mmol/L Chloride 97 L (98-107) mmol/L BUN 7 L (9-20) mg/dL Creatinine 0.36 L (0.66-1.25) mg/dL Calcium 7.0 L (8.4-10.2) mg/dL Microbiology - Last 24 Hours (Table) 08/17/18 22:31 Blood Culture - Preliminary Blood No Growth after 72 hours 08/17/18 22:32 Blood Culture - Preliminary Blood No Growth after 72 hours 08/18/18 13:25 Anaerobic Culture - Preliminary Pleural Fluid 08/18/18 13:34 Gram Stain - Preliminary Pleural Fluid Body Fluid Culture - Preliminary Assessment and Plan Plan: Assessment: 1. Hyponatremia. Currently appears euvolemic. 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 Urine sodium and osmolality are both quite elevated. TSH is normal. Improving. 2. Bilateral pneumonia. 3. Strep pneumonia bacteremia maintained on IV antibiotics. 4. Left-sided loculated hemorrhagic pleural effusion status post chest tube insertion on August 18. 5. Benign hypertension. Controlled. Plan: Maintain 1200 mL fluid restriction. Encouraged oral intake, particularly protein. Repeat electrolytes in the morning.
--- NOTE | 2018-08-21 11:00 | P.PN ---
Subjective Progress Note Date: 08/21/18 Principal diagnosis: shortness of breath Patient is a 52-year-old male with a past medical history of hypertension and pneumonia who was transferred here from [facility]. He had been hospitalized on 08/10/2018 for chest pain, tachycardia, and shortness of breath. During that hospitalization he was found to have pneumonia possibly secondary to aspiration, sepsis, severe delirium tremens not responsive to benzodiazepines, and strep pneumonia bacteremia. He is being followed by the hospitalist service, pulmonary, and infectious disease. He was started on Unasyn. He had initially been progressing well and his DTs were improving they were able to decrease his medications. He was placed on oral phenobarbital. His white blood cell count had initially been decreasing but then began to elevate. At that time they performed a CT which showed a loculated pleural effusion. He underwent thoracentesis on 08/17 however the found effusion was found to be persistent and loculated. Repeat blood cultures were obtained and were negative. Pulmonary then recommended transfer to our facility for loculated empyema. He was also noted to have persistent hyponatremia throughout his hospitalization at [facility]. He was seen by interventional radiology and had a pigtail catheter placed on 08/18. He was seen by cardiothoracic and had TPA instilled on the evening of 08/18. He was found to have a hemorrhagic effusion. 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 He was seen by nephrology. Patient stated that he is breathing better and his cough is much improved and he is feeling better. Patient has not used oxygen in past 24 hours and his oxygenation is fairly well. Patient's significant other was there and she was not happy with the care is stating that they're putting medications in the left chest and thus by his output is more. Patient and his significant other with his verbal consent was updated and explained in detail about medication to lyse the adhesions around the lungs does not account for more than 3 L of pleural fluid drainage in the past 24 hours. Patient stated that he would like his c hest or to reported outside he can lay on his sides. Patient denies chest pain, palpitation, nausea, vomiting, fever, chills, headache, dizziness, diaphoresis and denies rest of the review system. Objective - Vital Signs Vital signs: Vital Signs Temp 99.4 F 08/21/18 08:00 Pulse 90 08/21/18 08:22 Resp 20 08/21/18 08:00 BP 115/68 08/21/18 08:00 Pulse Ox 94 L 08/21/18 08:09 Intake & Output 08/20/18 08/21/18 08/21/18 18:59 06:59 18:59 Intake Total 960 900 230 Output Total 1400 Balance 960 -500 230 Weight 59.1 kg 57.3 kg Intake: Intake, IV Titration 100 Amount Ampicillin-Sulbactam 3 gm 100 In Sodium Chloride 0.9% 100 ml @ 200 mls/hr IVPB Q6HR [facility] Rx#:[id number] Oral 960 800 230 Output: Chest Tube Drainage 500 Chest Tube Left 500 Urine 900 Other: Voiding Method Urinal Urinal # Voids 1 - Constitutional General appearance: Present: cooperative, no acute distress, thin - EENT Eyes: Present: anicteric sclerae, EOMI, PERRLA ENT: Present: NA/AT - Neck Neck: Present: normal ROM. Absent: lymphadenopathy, rigidity, stridor, thyromegaly - Respiratory Details: Lungs were clear mostly bilaterally with some bibasal crackles mainly on the left base area. Pigtail catheter is in place on the left side of the chest. No wheezes appreciated. - Cardiovascular Rhythm: regular Heart sounds: normal: S1, S2 Abnormal Heart Sounds: Absent: systolic murmur, diastolic murmur, rub, S3 Gallop, S4 Gallop, click - Gastrointestinal General gastrointestinal: Present: normal bowel sounds, soft. Absent: distended, organomegaly, rigid, tenderness - Neurologic Neurologic: Present: CNII-XII intact - Psychiatric Psychiatric: Present: A&O x's 3, appropriate affect, intact judgment & insight - Labs CBC & Chem 7: 08/21/18 05:53 08/21/18 05:53 Labs: Abnormal Lab Results - Last 24 Hours (Table) 08/21/18 08/21/18 Range/Units 05:53 05:53 WBC 11.0 H (3.8-10.6) k/uL RBC 2.83 L (4.30-5.90) m/uL Hgb 9.3 L (13.0-17.5) gm/dL Hct 28.4 L (39.0-53.0) % MCV 100.1 H (80.0-100.0) fL Sodium 129 L (137-145) mmol/L Chloride 97 L (98-107) mmol/L BUN 7 L (9-20) mg/dL Creatinine 0.36 L (0.66-1.25) mg/dL Calcium 7.0 L (8.4-10.2) mg/dL Microbiology - Last 24 Hours (Table) 08/18/18 13:34 Gram Stain - Preliminary Pleural Fluid Body Fluid Culture - Preliminary 08/17/18 22:31 Blood Culture - Preliminary Blood No Growth after 72 hours 08/17/18 22:32 Blood Culture - Preliminary Blood No Growth after 72 hours 08/18/18 13:25 Anaerobic Culture - Preliminary Pleural Fluid - Imaging and Cardiology Chest x-ray: report reviewed, image reviewed Assessment and Plan (1) Pleural effusion associated with pulmonary infection Current Visit: Yes Status: Acute Priority: High Code(s): J18.9 - PNEUMONIA, UNSPECIFIED ORGANISM; J91.8 - PLEURAL EFFUSION IN OTHER CONDITIONS CL ASSIFIED ELSEWHERE SNOMED Code(s): 54701739 (2) Bacteremia Current Visit: Yes Status: Acute Priority: High Code(s): R78.81 - BACTEREMIA SNOMED Code(s): 5228720 (3) Hyponatremia Current Visit: Yes Status: Acute Priority: High Code(s): E87.1 - HYPO- OSMOLALITY AND HYPONATREMIA SNOMED Code(s): 67329800 (4) Pneumonia Current Visit: Yes Status: Acute Priority: High Code(s): J18.9 - PNEUMONIA, UNSPECIFIED ORGANISM SNOMED Code(s): 913361658 Plan: Patient is clinically improving I will continue current management with IV Unasyn for now. Patient just receives second or third dose of Alteplse yesterday and his left chest tube drainage still going on but is getting more and more clear and less and less blood is noted. It was advised that the nurse can climb the tube and patient can ambulate in the boothe to see his oxygenation with ambulation/exertion. Patient hyponatremia slowly improving with fluid restriction and nephrology input appreciated. Patient is refusing phenobarbital which was given for his possible withdrawal from alcohol and as patient hasn't drank in past 2 weeks or so, the medication will be changed to as needed basis. Patient's acute hypoxic respiratory failure which was from severe pneumonia and sepsis has completely resolved. Patient blood pressure is fairly controlled and will continue current management. Patient still have chest tube in place and was suggested was discontinued then we will monitor for 24 hours after discontinuation of chest tube and if it is stable at that point patient can be discharged home in next 24-48 hours. Time with Patient: Less than 30
--- NOTE | 2018-08-21 12:01 | P.PN ---
Subjective Progress Note Date: 08/21/18 Principal diagnosis: Loculated left-sided pleural effusion, suspect parapneumonic This is a 52-year-old white male patient that does not have a primary care provider, with past medical history of EtOH abuse, nicotine dependence, who was transferred from [facility] on 08/17/2018 after being hospitalized there for about a week since 08/10/2018. Patient initially presented to [facility] to the hospital with complaints of weakness, shortness of breath, disorientation, he could hardly walk related to his severe dyspnea. He sustained a fall at home, but did not sustain any apparent injuries. Denied any fever or chills, denied any significant cough or congestion, no pleurisy, no chest wall tenderness, no hemoptysis. No nausea, no vomiting or diarrhea, no abdominal pain. H drinks several beers a day on a regular basis, smokes about a pack a day for 34 years, denies any underlying chronic lung condition, not on any oxygen, not any breathing medications or any other prescription medications. 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 Initial chest x-ray showed right upper and left lower lobe infiltrates with small left effusion and suspected nodular pattern over the right upper lobe suspicious for neoplasm. CT chest was completed and showed bilateral areas of consolidation with small left effusion, with a 1.7 cm of localized focal consolidation or nodule in the right upper lobe. Patient had a right-sided thoracentesis on 08/17/2018, a follow-up chest x-ray showed moderate to large left loculated pleural effusion, but improvements in the appearance of the left upper lobe infiltrate and right midlung infiltrate. Patient was found to have Cryptococcus pneumonia bacteremia, initially was treated with vancomycin but then switched to Unasyn, which he remains. Patient was transferred to a [facility] on 08/17/2018 with a consult to direction radiology for a pigtail chest tube placement for a loculated left pleural effusion. Chest x-ray completed at this hospital on 08/18/2018 shows a large locular left pleural effusion, or lying mass is not excluded there is mild increased lung markings in the right perihilar region, and a minimal right pleural effusion. Blood work showed white blood cell count of 17.4, hemoglobin of 10.6, INR today is 1.3, sodium is 1:30, potassium is 4.0, chloride is 98, BUN is 9 and creatinine 0.50, AST was 61, ALT was 59, alk phos was 53. Patient is awake and alert, currently in no distress, lung sounds reveal diminished breath sounds on the left, with d ullness to percussion, no signs of active delirium, no tremors, no headaches, confusion. Patient is on 6 L per nasal cannula, and his pulse ox is around 94%, he is afebrile, hemodynamically stable. Continues on current antibiotics in the form of Unasyn, he is on nebulized bronchodilators, and Pulmicort. He was on CIWA protocol at [facility]. On 08/19/2018 patient seen in follow-up on the selective care unit, states he didn't sleep well last night, was having discomfort in his left chest. But overall his breathing is stable, he states his not short of breath, productive cough, bringing up some whitish yellowish colored sputum. No fever or chills. Patient received a dose of TPA in the left-sided pigtail chest tube catheter, there has been 1300 mL of dark serosanguineous fluid in the Pleur-evac in the last 24 hours. Today's chest x-ray showed improvement in the size of the left pleural effusion, no pneumothorax. Cytologies pending, cultures are pending, pleural fluid analysis showed exudative fluid. Antibiotic coverage in the form of Unasyn, ID service is following, no fever or chills. Knees on 6 L per high flow nasal cannula, and his pulse ox is 91-94%, hemodynamically stable. On 08/20/2018 patient seen in follow-up on selective care unit, he is resting c omfortably in bed, he states his breathing is much easier, less chest tightness, and chest discomfort, his pulse ox is 96% on 3 L, room air pulse ox is 90-92%. His workmen's incentive spirometer, able to achieve 1500, patient was given a dose of TPA yesterday, and there has been 4500 mL of serosanguineous pleural fluid drainage last 24 hours from the left-sided pigtail chest tube catheter. Pleural fluid Gram stain showed no growth at the 24 hours. Blood cultures were negative, pleural fluid cytologies pending. Fever or chills, and today's lab work has been reviewed, white blood cell, 16.3, hemoglobin is 9.7, sodium is 128, potassium is 3.8, chloride is 97, B1 is 90 and creatinine 0.44. Patient has been ambulating to the bathroom and back, tolerating activity fairly well. Lung sounds reveal diminished breath sounds over left lower lobe, with some scattered rales. the patient is seen today 08/21/2017 in follow-up on the selective care unit. He is currently resting comfortably in bed. He is awake and alert in no acute distress. He states he is breathing easier today as compared to yesterday.18 O2 saturations in the low 90s on room air at rest. Temperature 99.4. Blood press ure stable. Pleural fluid cultures are pending. Blood cultures reveal no growth. White count 11.0. Hemoglobin 9.3. Sodium 129. Creatinine 0.36. Left- sided pigtail chest tube remains in place. No plans for alteplase today. Chest x-ray shows improvement with a small left pleural effusion and mild interstitial edema remaining. Remains on Unasyn. Objective - Vital Signs Vital signs: Vital Signs Temp 99.4 F 08/21/18 08:00 Pulse 90 08/21/18 08:22 Resp 20 08/21/18 08:00 BP 115/68 08/21/18 08:00 Pulse Ox 94 L 08/21/18 08:09 Intake & Output 08/20/18 08/21/18 08/21/18 18:59 06:59 18:59 Intake Total 960 900 230 Output Total 1400 Balance 960 -500 230 Weight 59.1 kg 57.3 kg Intake: Intake, IV Titration 100 Amount Ampicillin-Sulbactam 3 gm 100 In Sodium Chloride 0.9% 100 ml @ 200 mls/hr IVPB Q6HR [facility] Rx#:[id number] Oral 960 800 230 Output: Chest Tube Drainage 500 Chest Tube Left 500 Urine 900 Other: Voiding Method Urinal Urinal # Voids 1 - Exam GENERAL EXAM: Alert, pleasant, thin, 52-year-old white male, on room air this morning, comfortable in no apparent distress. HEAD: Normocephalic/atraumatic. EYES: Normal reaction of pupils, equal size. Conjunctiva pink, sclera white. NOSE: Clear with pink turbinates. THROAT: No erythema or exudates. NECK: No masses, no JVD, no thyroid enlargement, no adenopathy. CHEST: No chest wall deformity. Symmetrical expansion. Left-sided pigtail chest tube catheter connected to a Pleur-evac and wall suction, with dark serosanguineous pleural fluid in the Pleur-evac, no air leak noted LUNGS: Equal air entry with diminished breath sounds over left mid and lower lobe and dullness to percussion over the same area, better aeration noted on today's exam. CVS: Regular rate and rhythm, normal S1 and S2, no gallops, no murmurs, no rubs ABDOMEN: Soft, nontender. No hepatosplenomegaly, normal bowel sounds, no guarding or rigidity. EXTREMITIES: No clubbing, no edema, no cyanosis, 2+ pulses and upper and lower extremities. MUSCULOSKELETAL: Muscle strength and tone normal. SPINE: No scoliosis or deformity SKIN: No rashes CENTRAL NERVOUS SYSTEM: No focal deficits, tone is normal in all 4 extremities. PSYCHIATRIC: Alert and oriented -3. Appropriate affect. Intact judgment and insight. - Labs CBC & Chem 7: 08/21/18 05:53 08/21/18 05:53 Labs: Abnormal Lab Results - Last 24 Hours (Table) 08/21/18 08/21/18 Range/Units 05:53 05:53 WBC 11.0 H (3.8-10.6) k/uL RBC 2.83 L (4.30-5.90) m/uL Hgb 9.3 L (13.0-17.5) gm/dL Hct 28.4 L (39.0-53.0) % MCV 100.1 H (80.0-100.0) fL Sodium 129 L (137-145) mmol/L Chloride 97 L (98-107) mmol/L BUN 7 L (9-20) mg/dL Creatinine 0.36 L (0.66-1.25) mg/dL Calcium 7.0 L (8.4-10.2) mg/dL Microbiology - Last 24 Hours (Table) 08/18/18 13:34 Gram Stain - Preliminary Pleural Fluid Body Fluid Culture - Preliminary 08/17/18 22:31 Blood Culture - Preliminary Blood No Growth after 72 hours 08/17/18 22:32 Blood Culture - Preliminary Blood No Growth after 72 hours 08/18/18 13:25 Anaerobic Culture - Preliminary Pleural Fluid Assessment and Plan Assessment: Assessment: #1. Acute hypoxemic respiratory failure related to acute pneumonia, possibly r elated to aspiration, with sepsis. #2. Large loculated left pleural effusion, parapneumonic, status post left- sided thoracentesis on 08/17/2018, cultures reveal no growth at 4 days, cytology reveals no malignancy at [facility]. Status post left pigtail chest tube insertion on 08/19/2018, with TPA infusions. 08/21/2018 x-ray revealing improvement with small left pleural effusion. No altered placed today. #3. Delirium tremens, not currently active, patient was hospitalized for a week at [facility], and was maintained on CIWA #4. Acute Streptococcus pneumonia bacteremia, initially treated with vancomycin, currently on Unasyn. Echocardiogram was completed at [facility] and showed low normal left ventricular function with ejection fraction of 50% #5. Hyponatremia, could be related to history of chronic alcohol use #6. Hypertension #7. Daily EtOH use, several beers a day #8. Chronic and ongoing nicotine dependence, carries [id number] smoking history Plan: The patient was seen and evaluated by Dr. White. Chest x-ray and labs were reviewed. Chest x-ray continues to show improvement. Small left pleural effu kush remains. No plans for alteplase infusion today. We will repeat a chest x- ray in the a.m. Then follow-up computed tomography scan on 08/23/2018. Cultures revealed no growth to date from [facility], cytology revealed no malignancy. He remains on Unasyn. we will continue to follow and make further recommendations based on his clinical status. I, the cosigning physician, performed a history & physical examination of the patient. Lungs sounds crackles in left posterior base, diminishedr. Maintaining good O2 saturations in the 90s on room air. I discussed the assessment and plan of care with my nurse practitioner, Skyla Bass. I attest to the above note as dictated by her.
[2018-08-21] MEDS: FOLIC ACID 1 MG TAB PO SCH (12:27)
--- NOTE | 2018-08-21 13:25 | P.PN ---
Subjective Progress Note Date: 08/21/18 Principal diagnosis: Left loculated pleural effusion, parapneumonic, status post left pleural pigtail insertion, status post alteplase instillation; pneumonia with recent sepsis and lactic acidosis; acute hypoxemic respiratory failure upon admission; hyponatremia. Previous medical history of heavy tobacco abuse, EtOH abuse and hypertension. The patient is sitting up to the bedside chair. He is in no acute distress. He reports that he is feeling much better today, denies any complaints of pain or shortness of breath. He reports that these been ambulating in his room without difficulty and feels like he could ambulate in the 3 S cardiac stepdown unit Hallway without difficulty. The patient has been on room air throughout the evening and his oxygen saturations this morning are 94% on room air. He is achieving 1750 mL on his incentive spirometry. Objective - Vital Signs Vital signs: Vital Signs Temp 99.4 F 08/21/18 08:00 Pulse 92 08/21/18 12:07 Resp 20 08/21/18 08:00 BP 115/68 08/21/18 08:00 Pulse Ox 94 L 08/21/18 08:09 Intake & Output 08/20/18 08/21/18 08/21/18 18:59 06:59 18:59 Intake Total 960 900 230 Output Total 1400 Balance 960 -500 230 Weight 59.1 kg 57.3 kg Intake: Intake, IV Titration 100 Amount Ampicillin-Sulbactam 3 gm 100 In Sodium Chloride 0.9% 100 ml @ 200 mls/hr IVPB Q6HR [facility] Rx#:[id number] Oral 960 800 230 Output: Chest Tube Drainage 500 Chest Tube Left 500 Urine 900 Other: Voiding Method Urinal Urinal # Voids 1 - Constitutional General appearance: Present: cooperative, no acute distress, thin - Respiratory Details: Lung sounds essentially clear throughout, diminished to his bilateral bases, left greater than right. Respirations are symmetrical and nonlabored. Left pleural pigtail catheter remains in place draining thin serosanguineous drai nage. No air leak is present. 500 mL output the last 24 hours. - Cardiovascular Details: Regular rhythm and rate. S1 and S2 present, negative for S3, gallop or murmur. - Gastrointestinal Gastrointestinal Comment(s): Abdomen is soft, nontender and nondistended. No guarding or rigidity. No organomegaly. Active bowel sounds all 4 abdominal quadrants. - Genitourinary Genitourinary Comment(s): Urine output is adequate. Voiding clear yellow urine. - Integumentary Integumentary Comment(s): Skin is warm and dry. No clubbing or cyanosis is present. Left chest pleural pigtail catheter dressing clean dry and intact. - Neurologic Neurologic: Present: CNII-XII intact - Musculoskeletal Musculoskeletal: Present: gait normal, strength equal bilaterally - Psychiatric Psychiatric: Present: A&O x's 3, appropriate affect, intact judgment & insight - Allied health notes Allied health notes reviewed: nursing - Labs CBC & Chem 7: 08/21/18 05:53 08/21/18 05:53 Labs: Abnormal Lab Results - Last 24 Hours (Table) 08/21/18 08/21/18 Range/Units 05:53 05:53 WBC 11.0 H (3.8-10.6) k/uL RBC 2.83 L (4.30-5.90) m/uL Hgb 9.3 L (13.0-17.5) gm/dL Hct 28.4 L (39.0-53.0) % MCV 100.1 H (80.0-100.0) fL Sodium 129 L (137-145) mmol/L Chloride 97 L (98-107) mmol/L BUN 7 L (9-20) mg/dL Creatinine 0.36 L (0.66-1.25) mg/dL Calcium 7.0 L (8.4-10.2) mg/dL Microbiology - Last 24 Hours (Table) 08/18/18 13:34 Gram Stain - Preliminary Pleural Fluid Body Fluid Culture - Preliminary 08/17/18 22:31 Blood Culture - Preliminary Blood No Growth after 72 hours 08/17/18 22:32 Blood Culture - Preliminary Blood No Growth after 72 hours 08/18/18 13:25 Anaerobic Culture - Preliminary Pleural Fluid - Imaging and Cardiology Chest x-ray: report reviewed, image reviewed Assessment and Plan Assessment: 1. Left-sided loculated pleural effusion, parapneumonic, status post thoracentesis and pigtail insertion 2. Current tobacco abuse, one half packs per day for 34 years 3. COPD 4. Alcohol abuse, 12 pack of beer per day 5. Community-acquired versus aspiration pneumonia, strep pneumonia bacteremia 6. Sepsis with lactic acidosis, acute hypoxemic respiratory failure upon admission to [facility] 7. Hyponatremia 8. Previous history of hypertension, currently off medication Plan: 1. We will hold off on instilling alteplase today. We will keep his left pleural pigtail catheter connected to continuous low wall suction. 2. No surgical intervention at this point in time, as his pigtail catheter remains draining post alteplase instillation. 3. Encourage smoking and alcohol cessation. 4. Wean O2 as tolerated. Encourage incentive spirometry 10 times every hour while awake. 5. Antibiotics management per infectious disease. 6. Will continue to monitor x-ray daily. 7. Increase activity as tolerated. Patient may be clamped for short periods of time to ambulate. 8. Medical management of other comorbidities per primary care, pulmonology, infectious disease. 9. Further recommendations to follow based on patient's clinical course. Time with Patient: Greater than 30
[2018-08-21] MEDS: ACETAMINOPHEN TAB 325 MG TAB PO PRN (15:38)
[2018-08-21] MEDS: THIAMINE 100 MG TAB PO SCH (15:39)
--- NOTE | 2018-08-21 23:38 | PN ---
PROGRESS NOTE DATE OF SERVICE: 08/21/2018. REASON FOR FOLLOWUP: Aspiration pneumonia with pain. INTERVAL HISTORY: The patient is currently afebrile. The patient is breathing comfortably. The left side chest pain has improved. No nausea, vomiting. No abdominal pain. No diarrhea. PHYSICAL EXAMINATION: Blood pressure 132/70 with pulse of 90, temperature 98.3. He is 94% on room air. General description is a middle-aged male lying in bed in no distress. Respiratory system: Unlabored breathing. Decreased breath sounds in the bases. No wheeze. Heart S1, S2. Regular rate and rhythm. Abdomen soft, no tenderness. LABS: Hemoglobin 9.1 with BUN of 7, creatinine 0.36. culture has been negative so far. DIAGNOSTIC IMPRESSION AND PLAN: Patient with aspiration pneumonia with Streptococcus pneumonia bacteremia with a component of loculated pleural fluid status post chest tube and patient is currently covered with Unasyn to continue for now, monitoring his culture closely and continue supportive care. MMODL / IJN: [id number] /
[2018-08-22] MEDS: KETOROLAC 30 MG/ML 1 ML VIAL IVP SCH ×5 (00:09→23:10)
[2018-08-22] MEDS: AMPICILLIN-SULBACTAM 3 GM in SODIUM CHLORIDE 0.9% 100 ML IVPB SCH ×5 (00:10→23:12)
[2018-08-22] MEDS: PANTOPRAZOLE 40 MG TABLET PO SCH ×2 (05:37→17:15)
[2018-08-22 07:34] LABS: Anion Gap 7 mmol/L; Blood Urea Nitrogen 4 mg/dL (9-20); Carbon Dioxide 26 mmol/L (22-30); Chloride 95 mmol/L (98-107); Glucose 88 mg/dL (74-99); Potassium 3.9 mmol/L (3.5-5.1); Sodium 128 mmol/L (137-145)
[2018-08-22 07:35] LABS: Calcium 7.5 mg/dL (8.4-10.2)
[2018-08-22 08:03] LABS: Basophils % (A) 0 %; Eosinophils # (A) 0.1 k/uL (0-0.7); Eosinophils % (A) 1 %; HCT 27.3 % (39.0-53.0); HGB 8.9 gm/dL (13.0-17.5); Lymphocytes % (A) 12 %; MCH 32.7 pg (25.0-35.0); MCHC 32.8 g/dL (31.0-37.0); MCV 99.6 fL (80.0-100.0); Mean Platelet Volume 7.3; Monocytes # (A) 0.6 k/uL (0-1.0); Monocytes % (A) 6 %; Neutrophils # (A) 6.8 k/uL (1.3-7.7); Neutrophils % (A) 78 %; Platelet Count 512 k/uL (150-450); RBC 2.74 m/uL (4.30-5.90); RDW 12.8 % (11.5-15.5); WBC 8.7 k/uL (3.8-10.6)
[2018-08-22] MEDS: PHENobarbital 32.4 MG TAB PO SCH (08:05)
[2018-08-22] MEDS: NICOTINE 21MG/24HR PATCH TRANSDERM SCH ×2 (08:08→08:11)
[2018-08-22] MEDS: MAGNESIUM OXIDE 400 MG TAB PO SCH (08:08)
[2018-08-22] MEDS: ASPIRIN 81 MG PO SCH (08:08)
--- NOTE | 2018-08-22 08:10 | XR ---
EXAMINATION TYPE: XR chest 1V portable DATE OF EXAM: 08/22/2018 COMPARISON: Prior chest 08/21/2017 HISTORY: Left pleural effusion TECHNIQUE: Single frontal view of the chest is obtained. FINDINGS: Findings are similar to prior exam. Interstitium is increased. There is thickening of the minor fissure. Left hemidiaphragm is obscured as is the left heart border due to increased density. N o pneumothorax. There are cardiac leads. Heart is small. Left pleural drain is in place. Aorta is den se. IMPRESSION: Left lower lobe atelectasis versus pneumonia and associated effusion or empyema. Follow- up to resolution to exclude underlying mass.
[2018-08-22] MEDS: ENOXAPARIN 40 MG/0.4 ML SYRINGE SQ SCH (08:11)
[2018-08-22] MEDS: ACETAMINOPHEN TAB 325 MG TAB PO PRN ×2 (08:35→20:52)
[2018-08-22] MEDS: BUDESONIDE 0.5 MG/2 ML NEBU INHALATION SCH ×2 (08:47→20:24)
[2018-08-22] MEDS: IPRATROPIUM-ALBUTEROL 3 ML NEB INHALATION PRN (08:47)
[2018-08-22] MEDS ORDERED: FUROSEMIDE 20 MG TAB PO STA (10:16)
--- NOTE | 2018-08-22 10:16 | P.PN ---
Subjective Patient is seen in follow-up for hyponatremia. Sodium level is 128 this morning. He is maintained on fluid restriction. Oral intake is much improved. Still has a chest tube in place. A new murmur was noted and he is scheduled to undergo echocardiogram today. Vital signs are stable. General: The patient appeared well nourished and normally developed. HEENT: Head exam is unremarkable. Neck is without jugular venous distension. LUNGS: Breath sounds decreased. CT noted. HEART: Rate and Rhythm are regular. First and second heart sounds normal. No murmurs, rubs or gallops. ABDOMEN: Abdominal exam reveals normal bowel sounds. Non-tender and non- distended. No evidence of peritonitis. EXTREMITITES: No clubbing, cyanosis, or edema. Objective - Vital Signs Vital signs: Vital Signs Temp 99 F 08/22/18 08:00 Pulse 88 08/22/18 09:02 Resp 18 08/22/18 08:00 BP 135/64 08/22/18 08:00 Pulse Ox 96 08/22/18 08:47 Intake & Output 08/21/18 08/22/18 08/22/18 17:59 06:59 18:59 Intake Total 180 Output Total Balance 180 Weight Intake: Intake, IV Titration Amount Ampicillin-Sulbactam 3 gm In Sodium Chloride 0.9% 100 ml @ 200 mls/hr IVPB Q6HR [facility] Rx#:[id number] Oral 180 Output: Chest Tube Drainage Chest Tube Left Urine Other: Voiding Method Urinal - Labs CBC & Chem 7: 08/22/18 06:52 08/22/18 06:52 Labs: Abnormal Lab Results - Last 24 Hours (Table) 08/22/18 08/22/18 Range/Units 06:52 06:52 RBC 2.74 L (4.30-5.90) m/uL Hgb 8.9 L (13.0-17.5) gm/dL Hct 27.3 L (39.0-53.0) % Plt Count 512 H (150-450) k/uL Sodium 128 L (137-145) mmol/L Chloride 95 L (98-107) mmol/L BUN 4 L (9-20) mg/dL Creatinine 0.45 L (0.66-1.25) mg/dL Calcium 7.5 L (8.4-10.2) mg/dL Microbiology - Last 24 Hours (Table) 08/17/18 22:31 Blood Culture - Preliminary Blood No Growth after 96 hours 08/17/18 22:32 Blood Culture - Preliminary Blood No Growth after 96 hours 08/18/18 13:34 Gram Stain - Preliminary Pleural Fluid Body Fluid Culture - Preliminary Assessment and Plan Plan: Assessment: 1. Hyponatremia. Currently appears euvolemic. 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 Urine sodium and osmolality are both quite elevated. TSH is normal. Sodium 128 today. 2. Bilateral pneumonia. 3. Strep pneumonia bacteremia maintained on IV antibiotics. 4. Left-sided loculated hemorrhagic pleural effusion status post chest tube insertion on August 18. 5. Benign hypertension. Controlled. 6. New murmur scheduled for ECHO today. Plan: Maintain 1200 mL fluid restriction. Encouraged oral intake, particularly protein. Lasix 20 mg po once today. Repeat electrolytes in the morning.
[2018-08-22] MEDS ORDERED: RX INFO: IV CONTRAST WAS GIVEN 1 EACH MISC MISCELLANE PRN (10:35)
--- NOTE | 2018-08-22 11:04 | P.PN ---
Subjective Progress Note Date: 08/22/18 Principal diagnosis: shortness of breath Patient is a 52-year-old male with a past medical history of hypertension and pneumonia who was transferred here from [facility]. He had been hospitalized on 08/10/2018 for chest pain, tachycardia, and shortness of breath. During that hospitalization he was found to have pneumonia possibly secondary to aspiration, sepsis, severe delirium tremens not responsive to benzodiazepines, and strep pneumonia bacteremia. He is being followed by the hospitalist service, pulmonary, and infectious disease. He was started on Unasyn. He had initially been progressing well and his DTs were improving they were able to decrease his medications. He was placed on oral phenobarbital. His white blood cell count had initially been decreasing but then began to elevate. At that time they performed a CT which showed a loculated pleural effusion. He underwent thoracentesis on 08/17 however the found effusion was found to be persistent and loculated. Repeat blood cultures were obtained and were negative. Pulmonary then recommended transfer to our facility for loculated empyema. He was also noted to have persistent hyponatremia throughout his hospitalization at [facility]. He was seen by interventional radiology and had a pigtail catheter placed on 08/18. He was seen by cardiothoracic and had TPA instilled on the evening of 08/18. He was found to have a hemorrhagic effusion. 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 He was seen by nephrology, placed on fluid restrict and protein supplement were added. He again required TPA on 08/19 and 08/20. His chest tube output has been decreasing. Sodium slowly increasing with fluid restriction. Patient seen and examined at bedside. Pain is still present, no constipation, no SOB, tolerating diet, no nausea or vomiting. Significant other at bedside and all questions answered. Objective - Vital Signs Vital signs: Vital Signs Temp 99 F 08/22/18 08:00 Pulse 88 08/22/18 09:02 Resp 18 08/22/18 08:00 BP 135/64 08/22/18 08:00 Pulse Ox 96 08/22/18 08:47 Intake & Output 08/21/18 08/22/18 08/22/18 17:59 06:59 18:59 Intake Total 180 Output Total Balance 180 Weight Intake: Intake, IV Titration Amount Ampicillin-Sulbactam 3 gm In Sodium Chloride 0.9% 100 ml @ 200 mls/hr IVPB Q6HR [facility] Rx#:[id number] Oral 180 Output: Chest Tube Drainage Chest Tube Left Urine Other: Voiding Method Urinal - Exam General: ill appearing, no distress, appears at stated age Derm: warm, dry Head: atraumatic, normocephalic, symmetric Eyes: EOMI, no lid lag, anicteric sclera Mouth: no lip lesion, mucus membranes moist Cardiovascular: S1S2 reg, + systolic murmur, positive posterior tibial pulse bilateral, Lungs: + rhonchi left base , no accessory muscle use chest tube in place with serous drainage Abdominal: soft, nontender to palpation, no guarding, no appreciable organomegaly Ext: no gross muscle atrophy, no edema, no contractures Neuro: CN II-XI grossly intact, no focal neuro deficits Psych: Alert, oriented, appropriate affect - Labs CBC & Chem 7: 08/22/18 06:52 08/22/18 06:52 Labs: Abnormal Lab Results - Last 24 Hours (Table) 08/22/18 08/22/18 Range/Units 06:52 06:52 RBC 2.74 L (4.30-5.90) m/uL Hgb 8.9 L (13.0-17.5) gm/dL Hct 27.3 L (39.0-53.0) % Plt Count 512 H (150-450) k/uL Sodium 128 L (137-145) mmol/L Chloride 95 L (98-107) mmol/L BUN 4 L (9-20) mg/dL Creatinine 0.45 L (0.66-1.25) mg/dL Calcium 7.5 L (8.4-10.2) mg/dL Microbiology - Last 24 Hours (Table) 08/18/18 13:25 Anaerobic Culture - Final Pleural Fluid 08/17/18 22:31 Blood Culture - Preliminary Blood No Growth after 96 hours 08/17/18 22:32 Blood Culture - Preliminary Blood No Growth after 96 hours 08/18/18 13:34 Gram Stain - Preliminary Pleural Fluid Body Fluid Culture - Preliminary Assessment and Plan Assessment: Bilateral pneumonia, possible aspiration -Continue with Unasyn, pulmonary hygiene -Pulmonary and ID recs appreciated -Budesonide, duoneb prn New murmur - stat echo as d/w Don Rivera. Cardio notified. Strep pneumonia bacteremia -ID recommendations -Continue with Unasyn - repeat blood cultures - ? need for IV abx pen[facility]iary vs oral abx. Patient will need to keep working in order to maintain his insurance. Hyponatremia due to SIADH -D/W nephro, continue with fluid restriction, lasix X 1 today -repeat labs in AM -1.2L fluid restriction Left-sided loculated hemorrhagic pleural effusion s/p CT with TPA on 08/18, 08/19, and 08/20 - plan is repeat CT chest in AM to assess loculations -pain control - CT mangement per cardiothorasic surgery Acute hypoxic respiratory failure -Treatment as above Delirium tremens, resolved -discontinue phenobarb, prn xanax - thiamine, folic acid - social work recs Hypertension, now controlled - follow BP - stop prn catapress Resolved: Sepsis Toxic metabolic encephalopathy secondary to delirium tremens DVT prophylaxis:Lovenox Discussed with: Patient, nursing, significant other, Fadi Clark, Dr. Infante Anticipated discharge: 2-[address]: home A total of 25 minutes was spent on the care of this complex patient more than 50% of the time was spent in counseling and care coordination.
--- NOTE | 2018-08-22 11:11 | P.PN ---
Subjective Progress Note Date: 08/22/18 Principal diagnosis: Loculated left pleural effusion, parapneumonic This is a 52-year-old white male patient that does not have a primary care provider, with past medical history of EtOH abuse, nicotine dependence, who was transferred from [facility] on 08/17/2018 after being hospitalized there for about a week since 08/10/2018. Patient initially presented to [facility] to the hospital with complaints of weakness, shortness of breath, disorientation, he could hardly walk related to his severe dyspnea. He sustained a fall at home, but did not sustain any apparent injuries. Denied any fever or chills, denied any significant cough or congestion, no pleurisy, no chest wall tenderness, no hemoptysis. No nausea, no vomiting or diarrhea, no abdominal pain. H drinks several beers a day on a regular basis, smokes about a pack a day for 34 years, denies any underlying chronic lung condition, not on any oxygen, not any breathing medications or any other prescription medications. 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 Initial chest x-ray showed right upper and left lower lobe infiltrates with small left effusion and suspected nodular pattern over the right upper lobe suspicious for neoplasm. CT chest was completed and showed bilateral areas of consolidation with small left effusion, with a 1.7 cm of loca lized focal consolidation or nodule in the right upper lobe. Patient had a right-sided thoracentesis on 08/17/2018, a follow-up chest x-ray showed moderate to large left loculated pleural effusion, but improvements in the appearance of the left upper lobe infiltrate and right midlung infiltrate. Patient was found to have Cryptococcus pneumonia bacteremia, initially was treated with vancomycin but then switched to Unasyn, which he remains. Patient was transferred to a [facility] on 08/17/2018 with a consult to direction radiology for a pigtail chest tube placement for a loculated left pleural effusion. Chest x-ray completed at this hospital on 08/18/2018 shows a large locular left pleural effusion, or lying mass is not excluded there is mild increased lung markings in the right perihilar region, and a minimal right pleural effusion. Blood work showed white blood cell count of 17.4, hemoglobin of 10.6, INR today is 1.3, sodium is 1:30, potassium is 4.0, chloride is 98, BUN is 9 and creatinine 0.50, AST was 61, ALT was 59, alk phos was 53. Patient is awake and alert, currently in no distress, lung sounds reveal diminished breath sounds on the left, with dullness to percussion, no signs of active delirium, no tremors, no headaches, confusion. Patient is on 6 L per nasal cannula, and his pulse ox is around 94%, he is afebrile, hemodynamically stable. Continues on current antibiotics in the form of Unasyn, he is on nebulized bronchodilators, and Pulmicort. He was on CIWA protocol at [facility]. On 08/19/2018 patient seen in follow-up on the selective care unit, states he didn't sleep well last night, was having discomfort in his left chest. But overall his breathing is stable, he states his not short of breath, productive cough, bringing up some whitish yellowish colored sputum. No fever or chills. Patient received a dose of TPA in the left-sided pigtail chest tube catheter, there has been 1300 mL of dark serosanguineous fluid in the Pleur-evac in the last 24 hours. Today's chest x-ray showed improvement in the size of the left pleural effusion, no pneumothorax. Cytologies pending, cultures are pending, pleural fluid analysis showed exudative fluid. Antibiotic coverage in the form of Unasyn, ID service is following, no fever or chills. Knees on 6 L per high flow nasal cannula, and his pulse ox is 91-94%, hemodynamically stable. On 08/20/2018 patient seen in follow-up on selective care unit, he is resting comfortably in bed, he states his breathing is much easier, less chest tightness, and chest discomfort, his pulse ox is 96% on 3 L, room air pulse ox is 90-92%. His workmen's incentive spirometer, able to achieve 1500, patient was given a dose of TPA yesterday, and there has been 4500 mL of serosanguineous pleural fluid drainage last 24 hours from the left-sided pigtail chest tube catheter. Pleural fluid Gram stain showed no growth at the 24 hours. Blood cultures were negative, pleural fluid cytologies pending. Fever or chills, and today's lab work has been reviewed, white blood cell, 16.3, hemoglobin is 9.7, sodium is 128, potassium is 3.8, chloride is 97, B1 is 90 and creatinine 0.44. Patient has been ambulating to the bathroom and back, tolerating activity fairly well. Lung sounds reveal diminished breath sounds over left lower lobe, with some scattered rales. On 08/22/2018 patient seen in follow-up on selective care unit, he is resting comfortably in bed, in no acute distress, stenosis of TPA was on 08/20/2018, left-sided pigtail chest tube has drained 640 mL of light colored serous drain age, cytology was negative for malignancy, fluid cultures are negative, cytology at [facility] was negative, and cultures showed no growth. She is working on his incentive spirometer, able to achieve 2000 ML on the today, lung sounds are positive for diminished breath sounds at the bases, more so on the left, with a few scattered crackles. She is wearing oxygen for comfort, room air pulse ox is 96%, afebrile, antibiotic coverage in the form of Unasyn. Cultures at [facility] were positive for Streptococcus pneumoniae, repeat blood cultures at this hospital showed no growth. Echocardiogram is pending. Objective - Vital Signs Vital signs: Vital Signs Temp 99 F 08/22/18 08:00 Pulse 88 08/22/18 09:02 Resp 18 08/22/18 08:00 BP 135/64 08/22/18 08:00 Pulse Ox 96 08/22/18 08:47 Intake & Output 08/21/18 08/22/18 08/22/18 17:59 06:59 18:59 Intake Total 180 Output Total Balance 180 Weight Intake: Intake, IV Titration Amount Ampicillin-Sulbactam 3 gm In Sodium Chloride 0.9% 100 ml @ 200 mls/hr IVPB Q6HR [facility] Rx#:[id number] Oral 180 Output: Chest Tube Drainage Chest Tube Left Urine Other: Voiding Method Urinal - Exam GENERAL EXAM: Alert, pleasant, thin, 52-year-old white male, on 2 L per nasal cannula, comfortable in no apparent distress. HEAD: Normocephalic/atraumatic. EYES: Normal reaction of pupils, equal size. Conjunctiva pink, sclera white. NOSE: Clear with pink turbinates. THROAT: No erythema or exudates. NECK: No masses, no JVD, no thyroid enlargement, no adenopathy. CHEST: No chest wall deformity. Symmetrical expansion. Left-sided pigtail chest tube catheter connected to a Pleur-evac and wall suction, with light serous pleural fluid in the Pleur-evac, no air leak noted LUNGS: Equal air entry with diminished breath sounds over left mid and lower lobe and dullness to percussion over the same area, better aeration noted on today's exam. CVS: Regular rate and rhythm, normal S1 and S2, no gallops, no murmurs, no rubs ABDOMEN: Soft, nontender. No hepatosplenomegaly, normal bowel sounds, no guarding or rigidity. EXTREMITIES: No clubbing, no edema, no cyanosis, 2+ pulses and upper and lower extremities. MUSCULOSKELETAL: Muscle strength and tone normal. SPINE: No scoliosis or deformity SKIN: No rashes CENTRAL NERVOUS SYSTEM: Alert and oriented -3. No focal deficits, tone is normal in all 4 extremities. PSYCHIATRIC: Alert and oriented -3. Appropriate affect. Intact judgment and insight. - Labs CBC & Chem 7: 08/22/18 06:52 08/22/18 06:52 Labs: Abnormal Lab Results - Last 24 Hours (Table) 08/22/18 08/22/18 Range/Units 06:52 06:52 RBC 2.74 L (4.30-5.90) m/uL Hgb 8.9 L (13.0-17.5) gm/dL Hct 27.3 L (39.0-53.0) % Plt Count 512 H (150-450) k/uL Sodium 128 L (137-145) mmol/L Chloride 95 L (98-107) mmol/L BUN 4 L (9-20) mg/dL Creatinine 0.45 L (0.66-1.25) mg/dL Calcium 7.5 L (8.4-10.2) mg/dL Microbiology - Last 24 Hours (Table) 08/18/18 13:34 Gram Stain - Final Pleural Fluid Body Fluid Culture - Final 08/18/18 13:25 Anaerobic Culture - Final Pleural Fluid 08/17/18 22:31 Blood Culture - Preliminary Blood No Growth after 96 hours 08/17/18 22:32 Blood Culture - Preliminary Blood No Growth after 96 hours Assessment and Plan Plan: Assessment: #1. Acute hypoxemic respiratory failure related to acute pneumonia, possibly related to aspiration, with sepsis. Imaging taken at another hospital showed bilateral pneumonia #2. Large loculated left pleural effusion, parapneumonic, status post left- sided thoracentesis on 08/17/2018, cultures and cytology negative at [facility]. Status post left pigtail chest tube insertion on 08/19/2018, with TPA infusions. #3. Delirium tremens, not currently active, patient was hospitalized for a week at [facility], and was maintained on CIWA #4. Acute Streptococcus pneumonia bacteremia, initially treated with vancomycin, currently on Unasyn. Echocardiogram was completed at [facility] and showed low normal left ventricular function with ejection fraction of 50% #5. Hyponatremia, could be related to history of chronic alcohol use #6. Hypertension #7. Daily EtOH use, several beers a day #8. Chronic and ongoing nicotine dependence, carries [id number] smoking history Plan: Patient is doing well, no fever or chills, cytology and pleural fluid cultures remain negative at both hospitals, at [facility] and [facility], his chest pain had resolved, he is wearing her oxygen intermittently, working on his incentive spirometer, today's chest x-ray has been reviewed by Dr. Ramos, shows left lower lobe atelectasis/infiltrate and associated pleural effusion. We will obtain CT chest with contrast tomorrow for follow-up on the left pleural effusion and consolidation. Chest tube continues to drain, no TPA in the last couple days. We'll continue to follow I performed a history & physical examination of the patient and discussed their management with my nurse practitioner, Kassandra Suarez. I reviewed the nurse practitioner's note and agree with the documented findings and plan of care. Lung sounds are positive for breast sounds on the left, with dullness to percussion. The findings and the impression was discussed with the patient. I attest to the documentation by the nurse practitioner. Time with Patient: Less than 30
--- NOTE | 2018-08-22 11:41 | P.PN ---
Subjective Progress Note Date: 08/22/18 Principal diagnosis: Left loculated pleural effusion, parapneumonic, status post left pleural pigtail insertion, status post alteplase instillation; pneumonia with recent sepsis and lactic acidosis; acute hypoxemic respiratory failure upon admission; hyponatremia. Previous medical history of heavy tobacco abuse, EtOH abuse and hypertension. The patient is laying in bed with his head elevated. He is in no acute distress. He denies any complaints of pain or shortness of breath at this time. He reports that he is feeling better each day and is anxious to have his left pigtail catheter removed and be discharged home. His T-max temperature in the last 24 hours was 100.8F. He was noted to have a systolic murmur on physical exam this morning. The patient denies any history of heart murmur. Objective - Vital Signs Vital signs: Vital Signs Temp 99 F 08/22/18 08:00 Pulse 88 08/22/18 09:02 Resp 18 08/22/18 08:00 BP 135/64 08/22/18 08:00 Pulse Ox 96 08/22/18 08:47 Intake & Output 08/21/18 08/22/18 08/22/18 17:59 06:59 18:59 Intake Total 180 Output Total Balance 180 Weight Intake: Intake, IV Titration Amount Ampicillin-Sulbactam 3 gm In Sodium Chloride 0.9% 100 ml @ 200 mls/hr IVPB Q6HR [facility] Rx#:[id number] Oral 180 Output: Chest Tube Drainage Chest Tube Left Urine Other: Voiding Method Urinal - Constitutional General appearance: Present: cooperative, no acute distress, thin - Respiratory Details: Essentially clear to his bilateral upper lobes, few scattered crackles to his left lower lobe. Respirations are symmetrical and nonlabored. Oxygen saturation are 96% on room air. He is achieving 1750 mL on his incentive spirometry. Left pleural pigtail catheter in place to low continuous wall suction -20 cm H2O. No air leak is present. Draining thick milky-colored drainage. 450 mL output in the last 24 hours. - Cardiovascular Details: Regular rhythm and rate. S1 and S2 present, positive systolic murmur 2/6. No edema present. - Gastrointestinal Gastrointestinal Comment(s): Abdomen is soft, nontender and nondistended. Active bowel sounds all 4 abdominal quadrants. No guarding or rigidity. No organomegaly. - Genitourinary Genitourinary Comment(s): Voiding clear yellow urine. - Integumentary Integumentary Comment(s): Skin is warm and dry. No clubbing or cyanosis is present. No rash or abnormal pigmentation present. Left chest pigtail catheter dressing clean and dry and intact. - Neurologic Neurologic: Present: CNII-XII intact - Musculoskeletal Musculoskeletal: Present: gait normal, strength equal bilaterally - Psychiatric Psychiatric: Present: A&O x's 3, appropriate affect, intact judgment & insight - Allied health notes Allied health notes reviewed: nursing - Labs CBC & Chem 7: 08/22/18 06:52 08/22/18 06:52 Labs: Abnormal Lab Results - Last 24 Hours (Table) 08/22/18 08/22/18 Range/Units 06:52 06:52 RBC 2.74 L (4.30-5.90) m/uL Hgb 8.9 L (13.0-17.5) gm/dL Hct 27.3 L (39.0-53.0) % Plt Count 512 H (150-450) k/uL Sodium 128 L (137-145) mmol/L Chloride 95 L (98-107) mmol/L BUN 4 L (9-20) mg/dL Creatinine 0.45 L (0.66-1.25) mg/dL Calcium 7.5 L (8.4-10.2) mg/dL Microbiology - Last 24 Hours (Table) 08/18/18 13:34 Gram Stain - Final Pleural Fluid Body Fluid Culture - Final 08/18/18 13:25 Anaerobic Culture - Final Pleural Fluid 08/17/18 22:31 Blood Culture - Preliminary Blood No Growth after 96 hours 08/17/18 22:32 Blood Culture - Preliminary Blood No Growth after 96 hours - Imaging and Cardiology Chest x-ray: report reviewed, image reviewed Assessment and Plan Assessment: 1. Left-sided loculated pleural effusion, parapneumonic, status post thoracentesis and pigtail insertion 2. Current tobacco abuse, one half packs per day for 34 years 3. COPD 4. Systolic murmur 5. Community-acquired versus aspiration pneumonia, strep pneumonia bacteremia 6. Sepsis with lactic acidosis, acute hypoxemic respiratory failure upon admission to [facility] 7. Hyponatremia 8. Previous history of hypertension, currently off medication 9. Alcohol abuse, 12 pack of beer per day Plan: 1. We will hold off on instilling alteplase today. We will keep his left pleural pigtail catheter connected to continuous low wall suction. 2. No surgical intervention planned at this point in time, as his pigtail catheter remains draining post alteplase instillation. 3. Encourage smoking and alcohol cessation. 4. Wean O2 as tolerated. Encourage incentive spirometry 10 times every hour while awake. 5. Antibiotics management per infectious disease. 6. Will continue to monitor x-ray daily. 7. Increase activity as tolerated. Patient may be clamped for short periods of time to ambulate. 8. Medical management of other comorbidities per primary care, pulmonology, infectious disease. 9. We will obtain a 2-D echocardiogram to rule out vegetation 4 his systolic murmur. 10. Further recommendations to follow based on patient's clinical course. Time with Patient: Greater than 30
[2018-08-22] MEDS: THIAMINE 100 MG TAB PO SCH (11:49)
[2018-08-22] MEDS: FOLIC ACID 1 MG TAB PO SCH (11:49)
[2018-08-22] MEDS ORDERED: ALTEPLASE 10 MG in SODIUM CHLORIDE 0.9% 100 ML IRRIGATION ONE (11:55)
--- NOTE | 2018-08-23 00:02 | PN ---
PROGRESS NOTE DATE OF SERVICE: 08/22/2018. REASON FOR FOLLOWUP: Pneumonia with parapneumonic effusion. INTERVAL HISTORY: The patient is currently afebrile. He has been breathing comfortably. No nausea, no vomiting. No abdominal pain or any diarrhea. PHYSICAL EXAMINATION: Blood pressure is 157/62, pulse 89, respirations 18, temperature 98.1. He is 95% on room air. GENERAL DESCRIPTION: A middle-aged male lying in bed in no distress. RESPIRATORY SYSTEM: Unlabored breathing with decreased breath sounds at the bases. HEART: S1, S2. Regular rate and rhythm. ABDOMEN: Soft, no tenderness. LABS: Hemoglobin 8.9, white count normalized to 8.7, BUN 14, creatinine 0.45. Blood in the pleural fluid culture so for negative. DIAGNOSTIC IMPRESSION AND PLAN: Patient with strep pneumo bacteremia. The patient did have pneumonia with parapneumonic effusion status post chest tube placement. So far culture has been negative for resistant pathogen. Patient currently covered with Unasyn, that will be continued for now. In view of the fact that the patient bacteremia very quickly, not a very common pathogen to cause endocarditis. Clinically doubt infective endocarditis. Plan will be to finish therapy with oral antibiotics. Continue supportive care. MMODL / IJN: [id number] /
[2018-08-23] MEDS: HYDROcodone/APAP 5-325MG 1 EACH TAB PO PRN (02:28)
[2018-08-23] MEDS: KETOROLAC 30 MG/ML 1 ML VIAL IVP SCH ×4 (05:48→23:34)
[2018-08-23] MEDS: AMPICILLIN-SULBACTAM 3 GM in SODIUM CHLORIDE 0.9% 100 ML IVPB SCH ×4 (05:49→23:34)
[2018-08-23] MEDS: PANTOPRAZOLE 40 MG TABLET PO SCH ×2 (06:57→17:58)
[2018-08-23] MEDS: BUDESONIDE 0.5 MG/2 ML NEBU INHALATION SCH ×2 (08:00→19:23)
[2018-08-23] MEDS: IPRATROPIUM-ALBUTEROL 3 ML NEB INHALATION PRN ×2 (08:00→19:23)
[2018-08-23] MEDS: ASPIRIN 81 MG PO SCH (08:16)
[2018-08-23] MEDS: ENOXAPARIN 40 MG/0.4 ML SYRINGE SQ SCH (08:16)
[2018-08-23] MEDS: MAGNESIUM OXIDE 400 MG TAB PO SCH (08:16)
--- NOTE | 2018-08-23 08:55 | ECHOF ---
Referral Reason:systolic murmur, r/o vegetation MEASUREMENTS -------- HEIGHT: 182.9 cm WEIGHT: 56.7 kg BP: 135/64 RVIDd: 2.1 cm (< 3.3) IVSd: 0.9 cm (0.6 - 1.1) LVIDd: 4.6 cm (3.9 - 5.3) LVPWd: 1.2 cm (0.6 - 1.1) IVSs: 1.3 cm LVIDs: 2.9 cm LVPWs: 1.4 cm LA Diam: 2.5 cm (2.7 - 3.8) Ao Diam: 2.8 cm (2.0 - 3.7) AV Cusp: 1.8 cm (1.5 - 2.6) MV EXCURSION: 19.436 mm (> 18.000) MV EF SLOPE: 69 mm/s (70 - 150) EPSS: 0.6 cm MV E José Miguel: 1.32 m/s MV DecT: 202 ms MV A José Miguel: 0.82 m/s MV E/A Ratio: 1.60 RAP: 5.00 mmHg RVSP: 34.42 mmHg FINDINGS -------- Sinus rhythm. This was a technically adequate study. The left ventricular size is normal. There is borderline concentric left ventricular hypertrophy. Overall left ventricular systolic function is normal with, an EF between 55 - 60 %. The right ventricle is normal in size. The left atrial size is normal. The right atrium is normal in size. The aortic valve is trileaflet, and appears structurally normal. No aortic stenosis or regurgitation. The mitral valve leaflets are mildly thickened. Mild mitral regurgitation is present. The tricuspid valve appears structurally normal. Mild tricuspid regurgitation present. Right vent ricular systolic pressure is normal at < 35 mmHg. The right ventricular systolic pressure, as measu red by Doppler, is 34.42mmHg. The pulmonic valve was not well visualized. There is no pulmonic regurgitation present. The aortic root size is normal. Normal inferior vena cava with normal inspiratory collapse consistent with estimated right atrial pre ssure of 5 mmHg. The inferior vena cava is mildly dilated. There is no pericardial effusion. Small Pleural Effusion. CONCLUSIONS -------- 1. Sinus rhythm. 2. This was a technically adequate study. 3. The left ventricular size is normal. 4. There is borderline concentric left ventricular hypertrophy. 5. Overall left ventricular systolic function is normal with, an EF between 55 - 60 %. 6. The left atrial size is normal. 7. The aortic valve is trileaflet, and appears structurally normal. No aortic stenosis or regurgitati on. 8. The mitral valve leaflets are mildly thickened. 9. Mild mitral regurgitation is present. 10. Mild tricuspid regurgitation present. 11. Right ventricular systolic pressure is normal at < 35 mmHg. 12. The pulmonic valve was not well visualized. 13. The aortic root size is normal. 14. Normal inferior vena cava with normal inspiratory collapse consistent with estimated right atrial pressure of 5 mmHg. 15. The inferior vena cava is mildly dilated. 16. There is no pericardial effusion. 17. Small Pleural Effusion. RESTAURANT COOK: Amelie West RDCS
--- NOTE | 2018-08-23 09:56 | CT ---
EXAMINATION TYPE: CT chest w con DATE OF EXAM: 08/23/2018 COMPARISON: None HISTORY: Empyema. CT DLP: 228.3 mGycm Automated exposure control for dose reduction was used. CONTRAST: CT scan of the chest is performed with IV Contrast, patient injected with 100 mL of Isovue 300. FINDINGS: LUNGS: Left basilar pleural catheter is in place. Left lower lobe Pleural collection noted with inter nal foci of air compatible with empyema. There is additional loculated collection identified left low er lobe anteriorly extending along the lateral pleural margin and medially along the pericardium. Thi s may reflect additional empyema. Estimated measurement is 7.7 x 2.5 cm. Pericardial component measur es 5.6 x 2.2 cm. There is associated left basilar atelectasis and/or infiltrate. Additional loculated component with large focus of air identified posterior pleura at the level of the raymond measures 7. 2 x 2.9 cm. Patchy infiltrate right upper lobe posteriorly. Right-sided pleural effusion noted with r ight basilar compressive atelectasis. MEDIASTINUM: There are no greater than 1 cm hilar or mediastinal lymph nodes. No pericardial effusi on is seen. Thoracic aorta is of normal caliber. The heart is not enlarged. UPPER ABDOMEN: No significant abnormality appreciated. OTHER: No additional significant abnormality is seen. IMPRESSION: 1. Multiloculated left-sided pleural collections with internal foci of air felt to reflect empyema. L eft basilar pleural catheter is noted. 2. Patchy infiltrate left lower lobe as well as right upper lobe may reflect underlying pneumonia.
[2018-08-23 11:55] LABS: HCT 29.3 % (39.0-53.0); HGB 9.6 gm/dL (13.0-17.5); MCH 32.9 pg (25.0-35.0); MCHC 32.9 g/dL (31.0-37.0); Mean Platelet Volume 6.8; Platelet Count 598 k/uL (150-450); RBC 2.93 m/uL (4.30-5.90); RDW 12.8 % (11.5-15.5); WBC 10.5 k/uL (3.8-10.6)
[2018-08-23 12:08] LABS: Anion Gap 9 mmol/L; Blood Urea Nitrogen 6 mg/dL (9-20); Calcium 7.9 mg/dL (8.4-10.2); Carbon Dioxide 25 mmol/L (22-30); Chloride 94 mmol/L (98-107); Glucose 108 mg/dL (74-99); Potassium 4.2 mmol/L (3.5-5.1); Sodium 128 mmol/L (137-145)
[2018-08-23] MEDS: FOLIC ACID 1 MG TAB PO SCH (13:21)
[2018-08-23] MEDS: THIAMINE 100 MG TAB PO SCH (13:22)
--- NOTE | 2018-08-23 13:59 | P.PN ---
Subjective Progress Note Date: 08/23/18 Principal diagnosis: Loculated left pleural effusion, parapneumonic This is a 52-year-old white male patient that does not have a primary care provider, with past medical history of EtOH abuse, nicotine dependence, who was transferred from [facility] on 08/17/2018 after being hospitalized there for about a week since 08/10/2018. Patient initially presented to [facility] to the hospital with complaints of weakness, shortness of breath, disorientation, he could hardly walk related to his severe dyspnea. He sustained a fall at home, but did not sustain any apparent injuries. Denied any fever or chills, denied any significant cough or congestion, no pleurisy, no chest wall tenderness, no hemoptysis. No nausea, no vomiting or diarrhea, no abdominal pain. H drinks several beers a day on a regular basis, smokes about a pack a day for 34 years, denies any underlying chronic lung condition, not on any oxygen, not any breathing medications or any other prescription medications. 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 Initial chest x-ray showed right upper and left lower lobe infiltrates with small left effusion and suspected nodular pattern over the right upper lobe suspicious for neoplasm. CT chest was completed and showed bilateral areas of consolidation with small left effusion, with a 1.7 cm of loca lized focal consolidation or nodule in the right upper lobe. Patient had a right-sided thoracentesis on 08/17/2018, a follow-up chest x-ray showed moderate to large left loculated pleural effusion, but improvements in the appearance of the left upper lobe infiltrate and right midlung infiltrate. Patient was found to have Cryptococcus pneumonia bacteremia, initially was treated with vancomycin but then switched to Unasyn, which he remains. Patient was transferred to a [facility] on 08/17/2018 with a consult to direction radiology for a pigtail chest tube placement for a loculated left pleural effusion. Chest x-ray completed at this hospital on 08/18/2018 shows a large locular left pleural effusion, or lying mass is not excluded there is mild increased lung markings in the right perihilar region, and a minimal right pleural effusion. Blood work showed white blood cell count of 17.4, hemoglobin of 10.6, INR today is 1.3, sodium is 1:30, potassium is 4.0, chloride is 98, BUN is 9 and creatinine 0.50, AST was 61, ALT was 59, alk phos was 53. Patient is awake and alert, currently in no distress, lung sounds reveal diminished breath sounds on the left, with dullness to percussion, no signs of active delirium, no tremors, no headaches, confusion. Patient is on 6 L per nasal cannula, and his pulse ox is around 94%, he is afebrile, hemodynamically stable. Continues on current antibiotics in the form of Unasyn, he is on nebulized bronchodilators, and Pulmicort. He was on CIWA protocol at [facility]. On 08/19/2018 patient seen in follow-up on the selective care unit, states he didn't sleep well last night, was having discomfort in his left chest. But overall his breathing is stable, he states his not short of breath, productive cough, bringing up some whitish yellowish colored sputum. No fever or chills. Patient received a dose of TPA in the left-sided pigtail chest tube catheter, there has been 1300 mL of dark serosanguineous fluid in the Pleur-evac in the last 24 hours. Today's chest x-ray showed improvement in the size of the left pleural effusion, no pneumothorax. Cytologies pending, cultures are pending, pleural fluid analysis showed exudative fluid. Antibiotic coverage in the form of Unasyn, ID service is following, no fever or chills. Knees on 6 L per high flow nasal cannula, and his pulse ox is 91-94%, hemodynamically stable. On 08/20/2018 patient seen in follow-up on selective care unit, he is resting comfortably in bed, he states his breathing is much easier, less chest tightness, and chest discomfort, his pulse ox is 96% on 3 L, room air pulse ox is 90-92%. His workmen's incentive spirometer, able to achieve 1500, patient was given a dose of TPA yesterday, and there has been 4500 mL of serosanguineous pleural fluid drainage last 24 hours from the left-sided pigtail chest tube catheter. Pleural fluid Gram stain showed no growth at the 24 hours. Blood cultures were negative, pleural fluid cytologies pending. Fever or chills, and today's lab work has been reviewed, white blood cell, 16.3, hemoglobin is 9.7, sodium is 128, potassium is 3.8, chloride is 97, B1 is 90 and creatinine 0.44. Patient has been ambulating to the bathroom and back, tolerating activity fairly well. Lung sounds reveal diminished breath sounds over left lower lobe, with some scattered rales. On 08/22/2018 patient seen in follow-up on selective care unit, he is resting comfortably in bed, in no acute distress, stenosis of TPA was on 08/20/2018, left-sided pigtail chest tube has drained 640 mL of light colored serous drain age, cytology was negative for malignancy, fluid cultures are negative, cytology at [facility] was negative, and cultures showed no growth. She is working on his incentive spirometer, able to achieve 2000 ML on the today, lung sounds are positive for diminished breath sounds at the bases, more so on the left, with a few scattered crackles. She is wearing oxygen for comfort, room air pulse ox is 96%, afebrile, antibiotic coverage in the form of Unasyn. Cultures at [facility] were positive for Streptococcus pneumoniae, repeat blood cultures at this hospital showed no growth. Echocardiogram is pending. On 08/23/2018 patient seen in follow-up on elective care unit, he is awake and alert, off the oxygen, pulse ox is 93-95% on room air, he is still wearing it on as-needed basis for shortness of breath, no chest pain, no fever or chills, hemodynamically stable, pleural fluid cultures remain negative thus far, patient had a CT chest, which showed a multiloculated left-sided pleural effusion, patchy infiltrate left lower lobe and a right upper lobe reflecting underlying pneumonia. She had a dose of TPA instilled yesterday, and he had 440 mL of pleural fluid output in the last 24 hours, antibiotic coverage in the form of Unasyn, echocardiogram showed EF between 55-60%, small pleural effusion, mild MR, mild TR, no aortic stenosis and regurgitation. Right ventricular systolic pressure within normal limits. Objective - Vital Signs Vital signs: Vital Signs Temp 98.1 F 08/23/18 08:00 Pulse 88 08/23/18 08:15 Resp 18 08/23/18 08:00 BP 158/74 08/23/18 08:00 Pulse Ox 93 L 03/11/19 08:03 Intake & Output 08/22/18 08/23/18 08/23/18 18:59 06:59 18:59 Intake Total 820 700 240 Output Total 220 1700 Balance 600 -1000 240 Weight 54.8 kg Intake: Intake, IV Titration 200 Amount Ampicillin-Sulbactam 3 gm 200 In Sodium Chloride 0.9% 100 ml @ 200 mls/hr IVPB Q6HR [facility] Rx#:[id number] Oral 820 500 240 Output: Chest Tube Drainage 220 200 Chest Tube Left 220 200 Urine 1500 Other: Voiding Method Urinal Urinal Urinal # Voids 1 - Exam GENERAL EXAM: Alert, pleasant, thin, 52-year-old white male, room air, comfortable in no apparent distress. HEAD: Normocephalic/atraumatic. EYES: Normal reaction of pupils, equal size. Conjunctiva pink, sclera white. NOSE: Clear with pink turbinates. THROAT: No erythema or exudates. NECK: No masses, no JVD, no thyroid enlargement, no adenopathy. CHEST: No chest wall deformity. Symmetrical expansion. Left-sided pigtail chest tube catheter connected to a Pleur-evac and wall suction, with light serous pleural fluid in the Pleur-evac, no air leak noted LUNGS: Equal air entry with diminished breath sounds over left mid and lower lobe and dullness to percussion over the same area, better aeration noted on today's exam. CVS: Regular rate and rhythm, normal S1 and S2, no gallops, no murmurs, no rubs ABDOMEN: Soft, nontender. No hepatosplenomegaly, normal bowel sounds, no gu arding or rigidity. EXTREMITIES: No clubbing, no edema, no cyanosis, 2+ pulses and upper and lower e xtremities. MUSCULOSKELETAL: Muscle strength and tone normal. SPINE: No scoliosis or deformity SKIN: No rashes CENTRAL NERVOUS SYSTEM: Alert and oriented -3. No focal deficits, tone is normal in all 4 extremities. PSYCHIATRIC: Alert and oriented -3. Appropriate affect. Intact judgment and insight. - Labs CBC & Chem 7: 08/23/18 11:28 08/23/18 11:28 Labs: Abnormal Lab Results - Last 24 Hours (Table) 08/23/18 08/23/18 Range/Units 11:28 11:28 RBC 2.93 L (4.30-5.90) m/uL Hgb 9.6 L (13.0-17.5) gm/dL Hct 29.3 L (39.0-53.0) % Plt Count 598 H (150-450) k/uL Sodium 128 L (137-145) mmol/L Chloride 94 L (98-107) mmol/L BUN 6 L (9-20) mg/dL Creatinine 0.46 L (0.66-1.25) mg/dL Glucose 108 H (74-99) mg/dL Calcium 7.9 L (8.4-10.2) mg/dL Microbiology - Last 24 Hours (Table) 08/17/18 22:31 Blood Culture - Preliminary Blood No Growth after 120 hours 08/17/18 22:32 Blood Culture - Preliminary Blood No Growth after 120 hours 08/18/18 13:34 Gram Stain - Final Pleural Fluid Body Fluid Culture - Final 08/18/18 13:25 Anaerobic Culture - Final Pleural Fluid Assessment and Plan Plan: Assessment: #1. Acute hypoxemic respiratory failure related to acute pneumonia, possibly related to aspiration, with sepsis. Imaging taken at another hospital showed bilateral pneumonia #2. Large loculated left pleural effusion, parapneumonic, status post left- sided thoracentesis on 08/17/2018, cultures and cytology negative at [facility]. Status post left pigtail chest tube insertion on 08/19/2018, with TPA infusions. #3. Delirium tremens, not currently active, patient was hospitalized for a week at [facility], and was maintained on CIWA #4. Acute Streptococcus pneumonia bacteremia, initially treated with vancomyci n, currently on Unasyn. Echocardiogram was completed at [facility] and showed low normal left ventricular function with ejection fraction of 50% #5. Hyponatremia, could be related to history of chronic alcohol use #6. Hypertension #7. Daily EtOH use, several beers a day #8. Chronic and ongoing nicotine dependence, carries [id number] smoking history Plan: Today's CT chest has been reviewed with Dr. Moise, and there is still multiloculated left-sided pleural effusion, and patchy infiltrate at the left lower lobe and right upper lobe reflecting pneumonia. Hemodynamically patient remains stable, no fever or chills, pleural fluid culture showed no growth. Echocardiogram results were noted, patient did receive a dose of TPA yesterday and another one today, his left-sided pleural chest tube is still draining pleural fluid, and there has been 440 mL of output the last 24 hours. I performed a history & physical examination of the patient and discussed their management with my nurse practitioner, Kassandra Suarez. I reviewed the nurse practitioner's note and agree with the documented findings and plan of care. Lung sounds are positive for breast sounds on the left, with dullness to percussion. The findings and the impression was discussed with the patient. I attest to the documentation by the nurse practitioner. Time with Patient: Less than 30
[2018-08-23] MEDS ORDERED: ALTEPLASE 10 MG in SODIUM CHLORIDE 0.9% 100 ML IRRIGATION ONE (15:00)
[2018-08-23] MEDS ORDERED: TOLVAPTAN 15 MG 1/2 TABLET PO ONE (15:30)
--- NOTE | 2018-08-23 15:51 | PN ---
PROGRESS NOTE Patient is seen for followup for hyponatremia secondary to SIADH. Patient is maintained on fluid restriction. His serum sodium is staying at about 128 to 129 mEq/L. He did receive a dose of Lasix yesterday. Serum sodium has not improved significantly. I will give him a dose of tolvaptan. On examination today, patient is comfortable. Blood pressure was 158/74, heart rate 84 per minute. He is afebrile. EXAMINATION OF THE HEART: S1 and S2. EXAMINATION OF LUNGS: Decreased breath sounds at the bases, mainly on the left side. Examination of lower extremities shows no significant edema. Abdomen is soft, non-tender. Labs show sodium 128, potassium 4.2, BUN 6, serum creatinine 0.46. Hemoglobin was 9.6 g/dL. ASSESSMENT: 1. Hyponatremia, euvolemic, secondary to syndrome of inappropriate antidiuretic hormone, maintained on fluid restriction with serum sodium staying at about 128 mEq/L. I will give a dose of tolvaptan and repeat labs in a.m. Hopefully patient will not need more than one dose. He is also encouraged to increase his oral intake, particularly protein. 2. Bilateral streptococcal pneumonia with sepsis, status post left empyema, status post chest tube placement and tPA insertion. 3. History of ethanol abuse. PLAN: Tolvaptan x1. Repeat labs in a.m.. MMODL / IJN: [id number] /
--- NOTE | 2018-08-23 16:41 | P.PN ---
Subjective Progress Note Date: 08/23/18 (delayed charting patient seen at 0930) Principal diagnosis: shortness of breath Patient is a 52-year-old male with a past medical history of hypertension and pneumonia who was transferred here from [facility]. He had been hospitalized on 08/10/2018 for chest pain, tachycardia, and shortness of breath. During that hospitalization he was found to have pneumonia possibly secondary to aspiration, sepsis, severe delirium tremens not responsive to benzodiazepines, and strep pneumonia bacteremia. He is being followed by the hospitalist service, pulmonary, and infectious disease. He was started on Unasyn. He had initially been progressing well and his DTs were improving they were able to decrease his medications. He was placed on oral phenobarbital. His white blood cell count had initially been decreasing but then began to elevate. At that time they performed a CT which showed a loculated pleural effusion. He underwent thoracentesis on 08/17 however the found effusion was found to be persistent and loculated. Repeat blood cultures were obtained and were negative. Pulmonary then recommended transfer to our facility for loculated empyema. He was also noted to have persistent hyponatremia throughout his hospitalization at [facility]. He was seen by interventional radiology and had a pigtail catheter placed on 08/18. He was seen by cardiothoracic and had TPA instilled on the evening of 08/18. He was found to have a hemorrhagic effusion. 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 He was seen by nephrology, placed on fluid restrict and protein supplement were added. He again required TPA on 08/19, 08/20, and 08/22. His chest tube output has been decreasing. Sodium slowly increasing with fluid rest riction, then stabilized. New murmur noted on 08/22 and echo showed no signs of vegetation. Patient seen and examined at bedside. Pain better today, no shortness of breath, has been up and walking in the hallways, no constipation, tolerating diet, no nausea or vomiting. Objective - Vital Signs Vital signs: Vital Signs Temp 98.0 F 08/23/18 12:00 Pulse 99 08/23/18 16:00 Resp 18 08/23/18 16:00 BP 143/81 08/23/18 12:00 Pulse Ox 97 08/23/18 12:00 Intake & Output 08/22/18 08/23/18 08/23/18 18:59 06:59 18:59 Intake Total 820 700 680 Output Total 220 1700 70 Balance 600 -1000 610 Weight 54.8 kg Intake: Intake, IV Titration 200 200 Amount Ampicillin-Sulbactam 3 gm 200 200 In Sodium Chloride 0.9% 100 ml @ 200 mls/hr IVPB Q6HR [facility] Rx#:[id number] Oral 820 500 480 Output: Chest Tube Drainage 220 200 70 Chest Tube Left 220 200 70 Urine 1500 Other: Voiding Method Urinal Urinal Urinal # Voids 1 3 - Exam General: non toxic, no distress, appears at stated age Derm: warm, dry Head: atraumatic, normocephalic, symmetric Eyes: EOMI, no lid lag, anicteric sclera Mouth: no lip lesion, mucus membranes moist Cardiovascular: S1S2 reg, + systolic murmur, positive posterior tibial pulse bilateral, Lungs: + rhonchi left base , no accessory muscle use chest tube in place with serous drainage Abdominal: soft, nontender to palpation, no guarding, no appreciable organomegaly Ext: no gross muscle atrophy, no edema, no contractures Neuro: CN II-XI grossly intact, no focal neuro deficits Psych: Alert, oriented, pleasant with appropriate questions - Labs CBC & Chem 7: 08/23/18 11:28 08/23/18 11:28 Labs: Abnormal Lab Results - Last 24 Hours (Table) 08/23/18 08/23/18 Range/Units 11:28 11:28 RBC 2.93 L (4.30-5.90) m/uL Hgb 9.6 L (13.0-17.5) gm/dL Hct 29.3 L (39.0-53.0) % Plt Count 598 H (150-450) k/uL Sodium 128 L (137-145) mmol/L Chloride 94 L (98-107) mmol/L BUN 6 L (9-20) mg/dL Creatinine 0.46 L (0.66-1.25) mg/dL Glucose 108 H (74-99) mg/dL Calcium 7.9 L (8.4-10.2) mg/dL Microbiology - Last 24 Hours (Table) 08/17/18 22:31 Blood Culture - Preliminary Blood No Growth after 120 hours 08/17/18 22:32 Blood Culture - Preliminary Blood No Growth after 120 hours Assessment and Plan Assessment: Bilateral pneumonia , possible aspiration -Continue with Unasyn per ID notes orals on discharge , pulmonary hygiene -Pulmonary and ID recs appreciated -Budesonide, duoneb prn Left-sided loculated parapneumonic effusion s/p pigtail catheter with TPA on 08/18, 08/19, 08/20, 08/22 - repeat CT with multiple areas of loculation - await furter cadiothorasic recs - pain control Strep pneumonia bacteremia -ID recommendations -Continue with Unasyn, plan is for orals on discharge - repeat blood cultures negative to date - echo without signs of vegitation Hyponatremia due to SIADH - nephro recs, tolvaptan today - repeat labs at 10 pm and in AM - lift fluid restriction Acute hypoxic respiratory failure -Treatment as above Resolved: Sepsis Toxic metabolic encephalopathy secondary to delirium tremens Delirium tremens, resolved Hypertension,resolved DVT prophylaxis:Lovenox Discussed with: Patient, nursing Anticipated discharge: 2-[address]: home A total of 35 minutes was spent on the care of this complex patient more than 50% of the time was spent in counseling and care coordination.
[2018-08-23] MEDS ORDERED: MORPHINE SULFATE 4 MG/ML SYRINGE IVP ONE (16:45)
--- NOTE | 2018-08-23 17:59 | P.PN ---
Subjective Progress Note Date: 08/23/18 Principal diagnosis: Left loculated pleural effusion, parapneumonic, status post left pleural pigtail insertion, status post alteplase instillation; pneumonia with recent sepsis and lactic acidosis; acute hypoxemic respiratory failure upon admission; hyponatremia. Previous medical history of heavy tobacco abuse, EtOH abuse and hypertension. The patient is sitting up to the bedside edge. He is in no acute distress. He denies any complaints of pain or shortness of breath this time. Alteplase 10 mg/in 100 mL normal saline was instilled through his left pleural pigtail cat heter yesterday and has drained 300 mL output in the last 24 hours. A computed tomography scan of his chest was completed today which demonstrated a multiloculated loculated left sided pleural effusion which according to the report may reflect empyema. The 2-D echocardiogram which was completed due to a systolic murmur heard demonstrates no evidence of vegetation. He remains afebrile in the last 48 hours. Objective - Vital Signs Vital signs: Vital Signs Temp 98.0 F 08/23/18 12:00 Pulse 99 08/23/18 16:00 Resp 18 08/23/18 16:00 BP 143/81 08/23/18 12:00 Pulse Ox 97 08/23/18 12:00 Intake & Output 08/22/18 08/23/18 08/23/18 18:59 06:59 18:59 Intake Total 820 700 680 Output Total 220 1700 70 Balance 600 -1000 610 Weight 54.8 kg Intake: Intake, IV Titration 200 200 Amount Ampicillin-Sulbactam 3 gm 200 200 In Sodium Chloride 0.9% 100 ml @ 200 mls/hr IVPB Q6HR [facility] Rx#:[id number] Oral 820 500 480 Output: Chest Tube Drainage 220 200 70 Chest Tube Left 220 200 70 Urine 1500 Other: Voiding Method Urinal Urinal Urinal # Voids 1 3 - Constitutional General appearance: Present: cooperative, no acute distress, thin - Respiratory Details: Lung sounds essentially clear to his bilateral upper lobes and diminished to his left lower lobe. Respirations are symmetrical and nonlabored. Oxygen saturation are 97% on room air. He is achieving 1750 mL on his incentive spirometry. Left pleural pigtail remains in place to low continuous wall suction -20 cm H2O. No air leak is present. 300 mL output in the last 24 hours. - Cardiovascular Details: Regular rhythm and rate. S1 and S2 present, negative for S3, or gallop. Systolic murmur present 2/6. No edema present. - Gastrointestinal Gastrointestinal Comment(s): Abdomen is soft, nontender and nondistended. Active bowel sounds all 4 abdominal quadrants. No guarding or rigidity. No organomegaly. - Genitourinary Genitourinary Comment(s): Voiding clear yousif urine. - Integumentary Integumentary Comment(s): Skin is warm and dry. No clubbing or cyanosis is present. No rash or abnormal pigmentation is present. Left pigtail catheter dressing is clean, dry and intact. - Neurologic Neurologic: Present: CNII-XII intact - Musculoskeletal Musculoskeletal: Present: gait normal, strength equal bilaterally - Psychiatric Psychiatric: Present: A&O x's 3, appropriate affect, intact judgment & insight - Allied health notes Allied health notes reviewed: nursing - Labs CBC & Chem 7: 08/23/18 11:28 08/23/18 11:28 Labs: Abnormal Lab Results - Last 24 Hours (Table) 08/23/18 08/23/18 Range/Units 11:28 11:28 RBC 2.93 L (4.30-5.90) m/uL Hgb 9.6 L (13.0-17.5) gm/dL Hct 29.3 L (39.0-53.0) % Plt Count 598 H (150-450) k/uL Sodium 128 L (137-145) mmol/L Chloride 94 L (98-107) mmol/L BUN 6 L (9-20) mg/dL Creatinine 0.46 L (0.66-1.25) mg/dL Glucose 108 H (74-99) mg/dL Calcium 7.9 L (8.4-10.2) mg/dL Microbiology - Last 24 Hours (Table) 08/17/18 22:31 Blood Culture - Preliminary Blood No Growth after 120 hours 08/17/18 22:32 Blood Culture - Preliminary Blood No Growth after 120 hours - Imaging and Cardiology CT scan - chest: report reviewed, image reviewed Assessment and Plan Assessment: 1. Left-sided loculated pleural effusion, parapneumonic, status post thoracent esis and pigtail insertion 2. Current tobacco abuse, one half packs per day for 34 years 3. COPD 4. Systolic murmur 5. Community-acquired versus aspiration pneumonia, strep pneumonia bacteremia 6. Sepsis with lactic acidosis, acute hypoxemic respiratory failure upon admission to [facility] 7. Hyponatremia 8. Previous history of hypertension, currently off medication 9. Alcohol abuse, 12 pack of beer per day Plan: 1. We will instill alteplase 10 mg/100 mL normal saline today. We will keep his left pleural pigtail catheter in place but we will place the left pleural pigtail catheter on waterseal. 2. No surgical intervention planned at this point in time. 3. Encourage smoking and alcohol cessation. 4. Encourage incentive spirometry 10 times every hour while awake. 5. Antibiotics management per infectious disease. 6. Will continue to monitor x-ray daily. 7. Increase activity as tolerated. 8. Medical management of other comorbidities per primary care, pulmonology, infectious disease. 9. Further recommendations to follow based on patient's clinical course. Time with Patient: Greater than 30
[2018-08-23] MEDS: ACETAMINOPHEN TAB 325 MG TAB PO PRN (20:21)
[2018-08-23 21:54] LABS: Anion Gap 7 mmol/L; Blood Urea Nitrogen 10 mg/dL (9-20); Calcium 8.1 mg/dL (8.4-10.2); Carbon Dioxide 25 mmol/L (22-30); Chloride 103 mmol/L (98-107); Glucose 107 mg/dL (74-99); Potassium 3.8 mmol/L (3.5-5.1); Sodium 135 mmol/L (137-145)
--- NOTE | 2018-08-24 00:24 | PN ---
PROGRESS NOTE DATE OF SERVICE: 08/23/2018. REASON FOR FOLLOWUP VISIT: Pneumonia and pain. INTERVAL HISTORY: The patient is afebrile. The patient has been breathing comfortably. No chest pain. No nausea or vomiting. No abdominal pain. No diarrhea. PHYSICAL EXAMINATION: Blood pressure is 144/70 with a pulse of 90, temperature 9.8. He is 94% on room air. GENERAL DESCRIPTION: A middle aged male up in the bed in no distress. RESPIRATORY SYSTEM: Unlabored breathing. Decreased breath sounds in the bases. No wheeze. HEART: S1, S2. Regular rate and rhythm. ABDOMEN: Soft, no tenderness. LABS: Culture has been negative so far. DIAGNOSTIC IMPRESSION AND PLAN: Patient with pleural effusion status post thoracocentesis. Repeat CT scan continuing to show loculated fluid. CT surgery is following the patient, recommending catheter placed and no surgical intervention. Echocardiogram was negative as well. Currently on Unasyn, to continue for now. Continue supportive care. MMODL / IJN: [id number] /
[2018-08-24] MEDS: KETOROLAC 30 MG/ML 1 ML VIAL IVP SCH (05:12)
[2018-08-24] MEDS: AMPICILLIN-SULBACTAM 3 GM in SODIUM CHLORIDE 0.9% 100 ML IVPB SCH ×4 (05:13→22:40)
[2018-08-24] MEDS: PANTOPRAZOLE 40 MG TABLET PO SCH ×2 (05:13→17:28)
[2018-08-24 06:58] LABS: Anion Gap 6 mmol/L; Blood Urea Nitrogen 6 mg/dL (9-20); Calcium 7.8 mg/dL (8.4-10.2); Carbon Dioxide 25 mmol/L (22-30); Chloride 103 mmol/L (98-107); Glucose 93 mg/dL (74-99); Potassium 4.2 mmol/L (3.5-5.1); Sodium 134 mmol/L (137-145)
--- NOTE | 2018-08-24 08:17 | XR ---
EXAMINATION TYPE: XR chest 2V DATE OF EXAM: 08/24/2018 COMPARISON: 08/22/2018 TECHNIQUE: PA and lateral views submitted. HISTORY: Abnormal x-ray FINDINGS: Left-sided consolidation and pleural effusion are again noted and may be slightly improved. Drainage catheter noted in position. Underlying COPD noted. No pneumothorax. Arthropathy of the shoulders. Thi ckening of the minor fissure noted. Heart size within normal limits. IMPRESSION: 1. Left-sided consolidation and pleural effusion may be slightly improved. 2. COPD.
--- NOTE | 2018-08-24 08:46 | P.PN ---
Subjective Progress Note Date: 08/24/18 Principal diagnosis: Left loculated pleural effusion, parapneumonic, status post left pleural pigtail insertion, status post alteplase instillation; pneumonia with recent sepsis and lactic acidosis; acute hypoxemic respiratory failure upon admission; hyponatremia. Previous medical history of heavy tobacco abuse, EtOH abuse and hypertension. The patient is sitting up to the bedside edge eating his breakfast. He is in no acute distress. He denies any complaints of pain or shortness of breath. Alteplase 10 mg/in 100 mL normal saline was instilled through his left pleural pigtail catheter yesterday and has drained 30 mL output in the last 24 hours. He remains afebrile in the last 48 hours. He reports he has been ambulating in the hallway several times yesterday. He is anxious to be discharged home. Objective - Vital Signs Vital signs: Vital Signs Temp 98.2 F 08/24/18 03:56 Pulse 89 08/24/18 03:56 Resp 18 08/24/18 03:56 BP 130/75 08/24/18 03:56 Pulse Ox 95 08/24/18 03:56 Intake & Output 08/23/18 08/24/18 08/24/18 18:59 06:59 18:59 Intake Total 920 240 Output Total 40 Balance 880 240 Weight 51.9 kg Intake: Intake, IV Titration 200 Amount Ampicillin-Sulbactam 3 gm 200 In Sodium Chloride 0.9% 100 ml @ 200 mls/hr IVPB Q6HR [facility] Rx#:[id number] Oral 720 240 Output: Chest Tube Drainage 40 Chest Tube Left 40 Other: Voiding Method Urinal # Voids 3 2 - Constitutional General appearance: Present: cooperative, no acute distress, thin - Respiratory Details: Lung sounds are essentially clear throughout, diminished to his left lower lobe. Respirations are symmetrical and nonlabored. Oxygen saturation are 95% on room air. He is achieving 1800 mL on his incentive spirometry. Left pleural pigtail catheter in place to water seal. No air leak is present. 30 mL of serous co lored drainage in the last 24 hours. - Cardiovascular Details: Regular rhythm and rate. S1 and S2 present, negative for S3 or gallop. Systolic murmur present 2/6. No edema present. - Gastrointestinal Gastrointestinal Comment(s): Abdomen is soft, nontender and nondistended. Active bowel sounds all 4 abdominal quadrants. No guarding or rigidity. No organomegaly. Tolerating oral intake. - Genitourinary Genitourinary Comment(s): Voiding clear yellow urine. - Integumentary Integumentary Comment(s): Skin is warm and dry. No clubbing or cyanosis is present. No rash or abnormal pigmentation is present. Left pleural pigtail catheter dressing clean, dry and intact. - Neurologic Neurologic: Present: CNII-XII intact - Musculoskeletal Musculoskeletal: Present: gait normal, strength equal bilaterally - Psychiatric Psychiatric: Present: A&O x's 3, appropriate affect, intact judgment & insight - Allied health notes Allied health notes reviewed: nursing - Labs CBC & Chem 7: 08/23/18 11:28 08/24/18 06:17 Labs: Abnormal Lab Results - Last 24 Hours (Table) 08/23/18 08/23/18 08/23/18 Range/Units 11:28 11:28 21:31 RBC 2.93 L (4.30-5.90) m/uL Hgb 9.6 L (13.0-17.5) gm/dL Hct 29.3 L (39.0-53.0) % Plt Count 598 H (150-450) k/uL Sodium 128 L 135 L (137-145) mmol/L Chloride 94 L (98-107) mmol/L BUN 6 L (9-20) mg/dL Creatinine 0.46 L 0.49 L (0.66-1.25) mg/dL Glucose 108 H 107 H (74-99) mg/dL Calcium 7.9 L 8.1 L (8.4-10.2) mg/dL 08/24/18 Range/Units 06:17 RBC (4.30-5.90) m/uL Hgb (13.0-17.5) gm/dL Hct (39.0-53.0) % Plt Count (150-450) k/uL Sodium 134 L (137-145) mmol/L Chloride (98-107) mmol/L BUN 6 L (9-20) mg/dL Creatinine 0.45 L (0.66-1.25) mg/dL Glucose (74-99) mg/dL Calcium 7.8 L (8.4-10.2) mg/dL Microbiology - Last 24 Hours (Table) 08/17/18 22:31 Blood Culture - Final Blood No Growth after 144 hours 08/17/18 22:32 Blood Culture - Final Blood No Growth after 144 hours - Imaging and Cardiology Chest x-ray: report reviewed, image reviewed Assessment and Plan Assessment: 1. Left-sided loculated pleural effusion, parapneumonic, status post thoracentesis and pigtail insertion 2. Current tobacco abuse, one half packs per day for 34 years 3. COPD 4. Systolic murmur 5. Community-acquired versus aspiration pneumonia, strep pneumonia bacteremia 6. Sepsis with lactic acidosis, acute hypoxemic respiratory failure upon adm ission to [facility] 7. Hyponatremia 8. Previous history of hypertension, currently off medication 9. Alcohol abuse, 12 pack of beer per day Plan: 1. We will instill alteplase 10 mg/100 mL normal saline today. We will keep his left pleural pigtail catheter in place but we will keep the left pleural pigtail catheter on waterseal. 2. No surgical intervention planned at this point in time. 3. Encourage smoking and alcohol cessation. 4. Encourage incentive spirometry 10 times every hour while awake. 5. Antibiotics management per infectious disease. 6. Will continue to monitor x-ray daily. 7. Increase activity as tolerated. 8. Medical management of other comorbidities per primary care, pulmonology, infectious disease. 9. Further recommendations to follow based on patient's clinical course. Time with Patient: Greater than 30
[2018-08-24] MEDS ORDERED: ALTEPLASE 10 MG in SODIUM CHLORIDE 0.9% 100 ML IRRIGATION ONE (09:14)
[2018-08-24] MEDS: BUDESONIDE 0.5 MG/2 ML NEBU INHALATION SCH ×2 (09:20→21:41)
[2018-08-24] MEDS: FOLIC ACID 1 MG TAB PO SCH (09:31)
[2018-08-24] MEDS: THIAMINE 100 MG TAB PO SCH (09:31)
[2018-08-24] MEDS: ASPIRIN 81 MG PO SCH (09:31)
[2018-08-24] MEDS: ENOXAPARIN 40 MG/0.4 ML SYRINGE SQ SCH (09:32)
[2018-08-24] MEDS: MAGNESIUM OXIDE 400 MG TAB PO SCH (09:32)
[2018-08-24] MEDS: NICOTINE 21MG/24HR PATCH TRANSDERM SCH (11:14)
[2018-08-24] MEDS: HYDROcodone/APAP 5-325MG 1 EACH TAB PO PRN ×3 (11:40→22:40)
[2018-08-24] MEDS: NICOTINE 14MG/24HR PATCH TRANSDERM SCH (12:21)
--- NOTE | 2018-08-24 12:59 | P.PN ---
Subjective Progress Note Date: 08/24/18 Principal diagnosis: Loculated left pleural effusion, parapneumonic This is a 52-year-old white male patient that does not have a primary care provider, with past medical history of EtOH abuse, nicotine dependence, who was transferred from [facility] on 08/17/2018 after being hospitalized there for about a week since 08/10/2018. Patient initially presented to [facility] to the hospital with complaints of weakness, shortness of breath, disorientation, he could hardly walk related to his severe dyspnea. He sustained a fall at home, but did not sustain any apparent injuries. Denied any fever or chills, denied any significant cough or congestion, no pleurisy, no chest wall tenderness, no hemoptysis. No nausea, no vomiting or diarrhea, no abdominal pain. H drinks several beers a day on a regular basis, smokes about a pack a day for 34 years, denies any underlying chronic lung condition, not on any oxygen, not any breathing medications or any other prescription medications. 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 Initial chest x-ray showed right upper and left lower lobe infiltrates with small left effusion and suspected nodular pattern over the right upper lobe suspicious for neoplasm. CT chest was completed and showed bilateral areas of consolidation with small left effusion, with a 1.7 cm of loca lized focal consolidation or nodule in the right upper lobe. Patient had a right-sided thoracentesis on 08/17/2018, a follow-up chest x-ray showed moderate to large left loculated pleural effusion, but improvements in the appearance of the left upper lobe infiltrate and right midlung infiltrate. Patient was found to have Cryptococcus pneumonia bacteremia, initially was treated with vancomycin but then switched to Unasyn, which he remains. Patient was transferred to a [facility] on 08/17/2018 with a consult to direction radiology for a pigtail chest tube placement for a loculated left pleural effusion. Chest x-ray completed at this hospital on 08/18/2018 shows a large locular left pleural effusion, or lying mass is not excluded there is mild increased lung markings in the right perihilar region, and a minimal right pleural effusion. Blood work showed white blood cell count of 17.4, hemoglobin of 10.6, INR today is 1.3, sodium is 1:30, potassium is 4.0, chloride is 98, BUN is 9 and creatinine 0.50, AST was 61, ALT was 59, alk phos was 53. Patient is awake and alert, currently in no distress, lung sounds reveal diminished breath sounds on the left, with dullness to percussion, no signs of active delirium, no tremors, no headaches, confusion. Patient is on 6 L per nasal cannula, and his pulse ox is around 94%, he is afebrile, hemodynamically stable. Continues on current antibiotics in the form of Unasyn, he is on nebulized bronchodilators, and Pulmicort. He was on CIWA protocol at [facility]. On 08/19/2018 patient seen in follow-up on the selective care unit, states he didn't sleep well last night, was having discomfort in his left chest. But overall his breathing is stable, he states his not short of breath, productive cough, bringing up some whitish yellowish colored sputum. No fever or chills. Patient received a dose of TPA in the left-sided pigtail chest tube catheter, there has been 1300 mL of dark serosanguineous fluid in the Pleur-evac in the last 24 hours. Today's chest x-ray showed improvement in the size of the left pleural effusion, no pneumothorax. Cytologies pending, cultures are pending, pleural fluid analysis showed exudative fluid. Antibiotic coverage in the form of Unasyn, ID service is following, no fever or chills. Knees on 6 L per high flow nasal cannula, and his pulse ox is 91-94%, hemodynamically stable. On 08/20/2018 patient seen in follow-up on selective care unit, he is resting comfortably in bed, he states his breathing is much easier, less chest tightness, and chest discomfort, his pulse ox is 96% on 3 L, room air pulse ox is 90-92%. His workmen's incentive spirometer, able to achieve 1500, patient was given a dose of TPA yesterday, and there has been 4500 mL of serosanguineous pleural fluid drainage last 24 hours from the left-sided pigtail chest tube catheter. Pleural fluid Gram stain showed no growth at the 24 hours. Blood cultures were negative, pleural fluid cytologies pending. Fever or chills, and today's lab work has been reviewed, white blood cell, 16.3, hemoglobin is 9.7, sodium is 128, potassium is 3.8, chloride is 97, B1 is 90 and creatinine 0.44. Patient has been ambulating to the bathroom and back, tolerating activity fairly well. Lung sounds reveal diminished breath sounds over left lower lobe, with some scattered rales. On 08/22/2018 patient seen in follow-up on selective care unit, he is resting comfortably in bed, in no acute distress, stenosis of TPA was on 08/20/2018, left-sided pigtail chest tube has drained 640 mL of light colored serous drain age, cytology was negative for malignancy, fluid cultures are negative, cytology at [facility] was negative, and cultures showed no growth. She is working on his incentive spirometer, able to achieve 2000 ML on the today, lung sounds are positive for diminished breath sounds at the bases, more so on the left, with a few scattered crackles. She is wearing oxygen for comfort, room air pulse ox is 96%, afebrile, antibiotic coverage in the form of Unasyn. Cultures at [facility] were positive for Streptococcus pneumoniae, repeat blood cultures at this hospital showed no growth. Echocardiogram is pending. On 08/23/2018 patient seen in follow-up on elective care unit, he is awake and alert, off the oxygen, pulse ox is 93-95% on room air, he is still wearing it on as-needed basis for shortness of breath, no chest pain, no fever or chills, hemodynamically stable, pleural fluid cultures remain negative thus far, patient had a CT chest, which showed a multiloculated left-sided pleural effusion, patchy infiltrate left lower lobe and a right upper lobe reflecting underlying pneumonia. She had a dose of TPA instilled yesterday, and he had 440 mL of pleural fluid output in the last 24 hours, antibiotic coverage in the form of Unasyn, echocardiogram showed EF between 55-60%, small pleural effusion, mild MR, mild TR, no aortic stenosis and regurgitation. Right ventricular systolic pressure within normal limits. On 08/24/2018 patient seen in follow-up on selective care unit, resting comfortably in bed, there has been only 40 mL of pleural fluid from the left- sided chest tube in the last 24 hours, patient received another dose of alteplase per CT surgery today, clinically patient is stable, no chest pain, no fever or chills, no difficulty breathing, he is on room air, is working on her incentive spirometer, able to achieve 2500 mL on the today, lung sounds are positive for diminished breath sounds over left lower base, with some limited crackles, today's chest x-ray has been reviewed by Dr. Moise and showed a left- sided consolidation and pleural effusion which seems to be improved in appearance. Today's labs have been reviewed, serum sodium is 134, potassium is 4.2, chloride is 103, BUN is 6, creatinine 0.45, CULTURES remain negative thus far. Objective - Vital Signs Vital signs: Vital Signs Temp 99.1 F 08/24/18 08:00 Pulse 90 08/24/18 09:32 Resp 18 08/24/18 08:00 BP 156/74 08/24/18 08:00 Pulse Ox 95 08/24/18 08:00 Intake & Output 08/23/18 08/24/18 08/24/18 18:59 06:59 18:59 Intake Total 920 360 Output Total 40 Balance 880 360 Weight 51.9 kg Intake: Intake, IV Titration 200 Amount Ampicillin-Sulbactam 3 gm 200 In Sodium Chloride 0.9% 100 ml @ 200 mls/hr IVPB Q6HR [facility] Rx#:[id number] Oral 720 360 Output: Chest Tube Drainage 40 Chest Tube Left 40 Other: Voiding Method Urinal # Voids 3 2 1 # Bowel Movements 0 - Exam GENERAL EXAM: Alert, pleasant, thin, 52-year-old white male, room air, comfortable in no apparent distress. HEAD: Normocephalic/atraumatic. EYES: Normal reaction of pupils, equal size. Conjunctiva pink, sclera white. NOSE: Clear with pink turbinates. THROAT: No erythema or exudates. NECK: No masses, no JVD, no thyroid enlargement, no adenopathy. CHEST: No chest wall deformity. Symmetrical expansion. Left-sided pigtail chest tube catheter connected to a Pleur-evac and wall suction, with light serous pleural fluid in the Pleur-evac, no air leak noted LUNGS: Equal air entry with diminished breath sounds over left mid and lower lobe and dullness to percussion over the same area, better aeration noted on today's exam. CVS: Regular rate and rhythm, normal S1 and S2, no gallops, no murmurs, no rubs ABDOMEN: Soft, nontender. No hepatosplenomegaly, normal bowel sounds, no guarding or rigidity. EXTREMITIES: No clubbing, no edema, no cyanosis, 2+ pulses and upper and lower extremities. MUSCULOSKELETAL: Muscle strength and tone normal. SPINE: No scoliosis or deformity SKIN: No rashes CENTRAL NERVOUS SYSTEM: Alert and oriented -3. No focal deficits, tone is normal in all 4 extremities. PSYCHIATRIC: Alert and oriented -3. Appropriate affect. Intact judgment and insight. - Labs CBC & Chem 7: 08/23/18 11:28 08/24/18 06:17 Labs: Abnormal Lab Results - Last 24 Hours (Table) 08/23/18 08/24/18 Range/Units 21:31 06:17 Sodium 135 L 134 L (137-145) mmol/L BUN 6 L (9-20) mg/dL Creatinine 0.49 L 0.45 L (0.66-1.25) mg/dL Glucose 107 H (74-99) mg/dL Calcium 8.1 L 7.8 L (8.4-10.2) mg/dL Microbiology - Last 24 Hours (Table) 08/17/18 22:31 Blood Culture - Final Blood No Growth after 144 hours 08/17/18 22:32 Blood Culture - Final Blood No Growth after 144 hours Assessment and Plan Plan: Assessment: #1. Acute hypoxemic respiratory failure related to acute pneumonia, possibly related to aspiration, with sepsis. Imaging taken at another hospital showed bilateral pneumonia #2. Large loculated left pleural effusion, parapneumonic, status post left- sided thoracentesis on 08/17/2018, cultures and cytology negative at [facility]. Status post left pigtail chest tube insertion on 08/19/2018, with TPA infusions. Cultures have been negative at [facility] as well, patient continues on antibiotic coverage in the form of Unasyn #3. Delirium tremens, not currently active, patient was hospitalized for a week at [facility], and was maintained on CIWA #4. Acute Streptococcus pneumonia bacteremia, initially treated with vancomycin, currently on Unasyn. Echocardiogram was completed at [facility] and showed low normal left ventricular function with ejection fraction of 50% #5. Hyponatremia, could be related to history of chronic alcohol use, improving #6. Hypertension #7. Daily EtOH use, several beers a day #8. Chronic and ongoing nicotine dependence, carries [id number] smoking history Plan: Continue current medical treatment, patient received another dose of TPA in the chest tube, there has been diminishing output, and over the last 24 hours there has been only 40 mL of light colored serous fluid from the left chest tube. Her chest, clinically patient is quite stable, no chest pain, no shortness of breath, he is on room air, tolerating ambulation. Chest x-ray has been reviewed, and there has been some improvement in the appearance of left-sided basal consolidation and pleural effusion. Cultures remained negative I performed a history & physical examination of the patient and discussed their management with my nurse practitioner, Kassandra Suarez. I reviewed the nurse practitioner's note and agree with the documented findings and plan of care. Lung sounds are positive for breast sounds on the left, with dullness to percussion. The findings and the impression was discussed with the patient. I attest to the documentation by the nurse practitioner. Time with Patient: Less than 30
--- NOTE | 2018-08-24 15:09 | P.PN ---
Subjective Progress Note Date: 08/24/18 (delayed charting patient seen 910am) Principal diagnosis: shortness of breath Patient is a 52-year-old male with a past medical history of hypertension and pneumonia who was transferred here from [facility]. He had been hospitalized on 08/10/2018 for chest pain, tachycardia, and shortness of breath. During that hospitalization he was found to have pneumonia possibly secondary to aspiration, sepsis, severe delirium tremens not responsive to benzodiazepines, and strep pneumonia bacteremia. He is being followed by the hospitalist service, pulmonary, and infectious disease. He was started on Unasyn. He had initially been progressing well and his DTs were improving they were able to decrease his medications. He was placed on oral phenobarbital. His white blood cell count had initially been decreasing but then began to elevate. At that time they performed a CT which showed a loculated pleural effusion. He underwent thoracentesis on 08/17 however the found effusion was found to be persistent and loculated. Repeat blood cultures were obtained and were negative. Pulmonary then recommended transfer to our facility for loculated empyema. He was also noted to have persistent hyponatremia throughout his hospitalization at [facility]. He was seen by interventional radiology and had a pigtail catheter placed on 08/18. He was seen by cardiothoracic and had TPA instilled on the evening of 08/18. He was found to have a hemorrhagic effusion. 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 He was seen by nephrology, placed on fluid restrict and protein supplement were added. He again required TPA on 08/19, 08/20, and 08/22. His chest tube output has been decreasing. Sodium slowly increasing with fluid restriction, then stabilized. New murmur noted on 08/22 and echo showed no signs of vegetation. He was given tolvaptan on 08/23 with good response and his fluid restriction was liberalized. Patient seen and examined at bedside. He is anxious to be discharge he is frustrated at being in the hospital. He has no shortness of breath. No nausea. No vomiting. No diarrhea. Objective - Vital Signs Vital signs: Vital Signs Temp 99.1 F 08/24/18 08:00 Pulse 90 08/24/18 12:25 Resp 18 08/24/18 12:25 BP 146/70 08/24/18 12:25 Pulse Ox 97 08/24/18 12:25 Intake & Output 08/23/18 08/24/18 08/24/18 18:59 06:59 18:59 Intake Total 920 360 Output Total 40 Balance 880 360 Weight 51.9 kg Intake: Intake, IV Titration 200 Amount Ampicillin-Sulbactam 3 gm 200 In Sodium Chloride 0.9% 100 ml @ 200 mls/hr IVPB Q6HR [facility] Rx#:[id number] Oral 720 360 Output: Chest Tube Drainage 40 Chest Tube Left 40 Other: Voiding Method Urinal # Voids 3 2 1 # Bowel Movements 0 - Exam General: non toxic, no distress, appears at stated age Derm: warm, dry Head: atraumatic, normocephalic, symmetric Eyes: EOMI, no lid lag, anicteric sclera Mouth: no lip lesion, mucus membranes moist Cardiovascular: S1S2 reg, + systolic murmur, positive posterior tibial pulse bilateral, Lungs: decreased be left base , no accessory muscle use chest tube in place with serosanguanous drainage Abdominal: soft, nontender to palpation, no guarding, no appreciable organomegaly Ext: no gross muscle atrophy, no edema, no contractures Neuro: CN II-XI grossly intact, no focal neuro deficits Psych: Alert, oriented, pleasant with appropriate questions - Labs CBC & Chem 7: 08/23/18 11:28 08/24/18 06:17 Labs: Abnormal Lab Results - Last 24 Hours (Table) 08/23/18 08/24/18 Range/Units 21:31 06:17 Sodium 135 L 134 L (137-145) mmol/L BUN 6 L (9-20) mg/dL Creatinine 0.49 L 0.45 L (0.66-1.25) mg/dL Glucose 107 H (74-99) mg/dL Calcium 8.1 L 7.8 L (8.4-10.2) mg/dL Microbiology - Last 24 Hours (Table) 08/17/18 22:31 Blood Culture - Final Blood No Growth after 144 hours 08/17/18 22:32 Blood Culture - Final Blood No Growth after 144 hours Assessment and Plan Assessment: Bilateral pneumonia , possible aspiration -Continue with Unasyn per ID notes orals on discharge , pulmonary hygiene -Pulmonary and ID recs appreciated -Budesonide, duoneb prn Left-sided loculated parapneumonic effusion s/p pigtail catheter with TPA on 08/18, 08/19, 08/20, 08/22, 08/23, 08/24 - repeat CT with multiple areas of loculation - cadiothorasic recs appreciated, no plans for surgery at this time. - pain control Strep pneumonia bacteremia - ID recommendations - Continue with Unasyn, plan is for orals on discharge - repeat blood cultures negative to date - echo without signs of vegitation Hyponatremia due to SIADH - nephro recs, tolvaptan 08/23, no fluid restriction, no planning another dose currently - repeat labs in AM Acute hypoxic respiratory failure -Treatment as above Resolved: Sepsis Toxic metabolic encephalopathy secondary to delirium tremens Delirium tremens, resolved Hypertension,resolved DVT prophylaxis:Lovenox Discussed with: Patient, nursing, nephrology Anticipated discharge: 2-[address]: home A total of 35 minutes was spent on the care of this complex patient more than 50% of the time was spent in counseling and care coordination.
[2018-08-24] MEDS: ACETAMINOPHEN TAB 325 MG TAB PO PRN ×2 (16:31→19:33)
--- NOTE | 2018-08-24 20:13 | PN ---
PROGRESS NOTE The patient is seen for followup for hyponatremia. He got a dose of tolvaptan yesterday. Serum sodium was 135 last night. This morning it is at 134. The fluid restriction has been lifted. The patient remains with loculated pleural effusion and is currently receiving tPA treatments. PHYSICAL EXAMINATION: This morning blood pressure was 158/74, heart rate of 90 per minute. Patient is afebrile. Examination of the heart S1, S2. Examination lungs: Bilateral breath sounds are heard. There are crackles heard on the left side. Abdomen is soft, nontender. Exam of lower extremities shows no evidence of edema. LAB: Show sodium 134 today. ASSESSMENT: 1. Hyponatremia secondary to SIADH status post 1 dose of tolvaptan yesterday. I have advised the patient on not to significantly increase his fluid intake. At the time of discharge, he will be maintained on fluid restriction. At this time we have lifted the fluid restriction secondary to the patient receiving tolvaptan yesterday. I will repeat labs in a.m. He is advised to maintain good protein intake. 2. Status post streptococcal pneumonia sepsis. 3. Large loculated empyema, status post tPA and chest tube placement. PLAN: Repeat labs in a.m. Avoid excessive fluid intake. MMODL / IJN: [id number] /
[2018-08-24] MEDS: IPRATROPIUM-ALBUTEROL 3 ML NEB INHALATION PRN (21:41)
--- NOTE | 2018-08-24 23:40 | PN ---
PROGRESS NOTE DATE OF SERVICE: 08/24/2018 REASON FOR FOLLOWUP: Aspiration pneumonia with empyema. INTERVAL HISTORY: The patient is afebrile. The patient is breathing comfortably. His left lower chest pain has improved. No nausea. No vomiting. No abdominal pain and no diarrhea. PHYSICAL EXAMINATION: Blood pressure 160/77 with a pulse of 89, temperature 98.2. He is 96% on room air. General description is a middle-aged male up in the bed in no distress. RESPIRATORY SYSTEM: Unlabored breathing with decreased breath sounds at the base. HEART: S1, S2. Regular rate and rhythm. ABDOMEN: Soft. No tenderness. EXTREMITIES: No edema of the feet. LABS: White count 10.5 with a BUN of 6, creatinine 0.45. Pleural fluid culture has been negative. DIAGNOSTIC IMPRESSION AND PLAN: Patient with left lower lobe aspiration pneumonia with parapneumonic effusion/empyema, status post chest tube placement on the case surgery at this point. Patient is currently on Unasyn, as no resistant organism has been grown. Will be finishing therapy with oral Augmentin for 2 weeks. Plan of care was discussed with the admitting physician. MMODL / IJN: [id number] /
[2018-08-25] MEDS: ACETAMINOPHEN TAB 325 MG TAB PO PRN (02:48)
[2018-08-25] MEDS: PANTOPRAZOLE 40 MG TABLET PO SCH (06:05)
[2018-08-25 06:44] LABS: Anion Gap 10 mmol/L; Blood Urea Nitrogen 6 mg/dL (9-20); Calcium 8.7 mg/dL (8.4-10.2); Carbon Dioxide 25 mmol/L (22-30); Chloride 98 mmol/L (98-107); Glucose 90 mg/dL (74-99); Potassium 4.5 mmol/L (3.5-5.1); Sodium 133 mmol/L (137-145)
--- NOTE | 2018-08-25 08:13 | XR ---
EXAMINATION TYPE: XR chest 1V portable DATE OF EXAM: 08/25/2018 CLINICAL HISTORY: Difficulty breathing progress study. Loculated pleural effusion. TECHNIQUE: Single AP portable upright view of the chest is obtained. COMPARISON: Chest x-ray from one day earlier. CT chest from 2 days ago. FINDINGS: Cardiac silhouette size is stable and within normal limits. There is background chronic em physematous change redemonstrated. Right lung predominantly clear with lateral midlung linear scarrin g or atelectasis redemonstrated. There is more prominent left mid to lower lung atelectasis and/or sc arring with focal mid to lower lung lateral pleural fluid collection relating to oval peripheral opac ity on x-ray remaining present. Below this collection there is pigtail catheter in the left lung base redemonstrated. Atherosclerotic thoracic aorta is redemonstrated. Scoliotic curvature is again seen. IMPRESSION: Overall stable findings, chronic parenchymal changes with persistent left lower lung at electasis and/or scarring and loculated pleural fluid collections with successful drainage of the mos t inferior loculated collection noted. No new infiltrate is seen.
[2018-08-25] MEDS: BUDESONIDE 0.5 MG/2 ML NEBU INHALATION SCH (09:05)
[2018-08-25] MEDS: IPRATROPIUM-ALBUTEROL 3 ML NEB INHALATION PRN (09:05)
[2018-08-25] MEDS: NICOTINE 14MG/24HR PATCH TRANSDERM SCH (09:44)
[2018-08-25] MEDS: FOLIC ACID 1 MG TAB PO SCH (09:44)
[2018-08-25] MEDS: MAGNESIUM OXIDE 400 MG TAB PO SCH (09:44)
[2018-08-25] MEDS: ENOXAPARIN 40 MG/0.4 ML SYRINGE SQ SCH (09:44)
[2018-08-25] MEDS: ASPIRIN 81 MG PO SCH (09:45)
[2018-08-25] MEDS: THIAMINE 100 MG TAB PO SCH (09:45)
--- NOTE | 2018-08-25 10:03 | P.PN ---
Subjective Progress Note Date: 08/25/18 Principal diagnosis: Left loculated pleural effusion, parapneumonic, status post pigtail insertion, status post alteplase instillation; pneumonia with recent sepsis and lactic acid osis; acute hypoxemic respiratory failure upon admission; hyponatremia. Previous medical history of heavy tobacco abuse, EtOH abuse, hypertension. The patient is currently sitting up in bed in no acute distress. He is frustrated with hospitalization. He has had alteplase instilled daily to his l eft-sided pigtail catheter with drainage decreasing to the point of essentially stopping. He is using his incentive spirometry diligently. Pain is currently controlled. Objective - Vital Signs Vital signs: Vital Signs Temp 97.5 F L 08/25/18 03:28 Pulse 90 08/25/18 03:28 Resp 18 08/25/18 03:28 BP 155/80 08/25/18 03:28 Pulse Ox 95 08/25/18 03:28 Intake & Output 08/24/18 08/25/18 08/25/18 18:59 06:59 18:59 Intake Total 360 970 Output Total 0 30 Balance 360 940 Weight 53.6 kg Intake: IV 10 Invasive Line 2 10 Oral 360 960 Output: Chest Tube Drainage 0 30 Chest Tube Left 0 30 Other: Voiding Method Urinal # Voids 2 # Bowel Movements 0 0 - Constitutional General appearance: Present: cooperative, no acute distress, thin - Respiratory Details: Lungs sounds clear bilaterally. Respirations even, nonlabored. Currently on room air with oxygen saturation 95%. Left sided pigtail catheter present, connected to atrium, less than 100 mL output last 24 hours, essentially what was instilled is what has drained. - Cardiovascular Details: S1, S2 present. Regular rate and rhythm, sinus rhythm on telemetry. Palpable peripheral pulses bilaterally. No edema present. No calf pain or tenderness noted. - Gastrointestinal Gastrointestinal Comment(s): Abdomen soft, nontender, nondistended. Active bowel sounds 4 quadrants. Tolerating diet. - Genitourinary Genitourinary Comment(s): Continues to void clear, yellow urine. - Integumentary Integumentary Comment(s): Skin is warm and dry with evidence of good perfusion. Pigtail site covered with clean dry dressing. - Neurologic Neurologic: Present: CNII-XII intact - Musculoskeletal Musculoskeletal: Present: gait normal, strength equal bilaterally - Psychiatric Psychiatric: Present: A&O x's 3, appropriate affect, intact judgment & insight - Allied health notes Allied health notes reviewed: nursing - Labs CBC & Chem 7: 08/23/18 11:28 08/25/18 05:58 Labs: Abnormal Lab Results - Last 24 Hours (Table) 08/25/18 Range/Units 05:58 Sodium 133 L (137-145) mmol/L BUN 6 L (9-20) mg/dL Creatinine 0.43 L (0.66-1.25) mg/dL - Imaging and Cardiology Chest x-ray: report reviewed, image reviewed Assessment and Plan Assessment: 1. Left-sided loculated pleural effusion, parapneumonic, status post thoracentesis and pigtail insertion 2. Current tobacco abuse, one half packs per day for 34 years 3. COPD 4. Alcohol abuse, 12 pack of beer per day 5. Community-acquired versus aspiration pneumonia, strep pneumonia bacteremia 6. Sepsis with lactic acidosis, acute hypoxemic respiratory failure upon admission to [facility], resolved 7. Hyponatremia 8. Previous history of hypertension, currently off medication Plan: 1. Recommend discontinuing pigtail catheter is patient has had no more significant drainage. Catheter to be discontinued by interventional radiology. 2. No surgical intervention at this point in time. 3. Encourage smoking and alcohol cessation. 4. Encourage incentive spirometry 10 times every hour while awake. 5. Antibiotics per infectious disease. Unasyn discontinued, transition to oral Augmentin per Dr. Nur. 6. Increase activity as tolerated. Ambulate in hallway. 7. Medical management of other comorbidities per primary care, pulmonology, infectious disease. 8. Will continue to follow while hospitalized. Time with Patient: Greater than 30
[2018-08-25] MEDS ORDERED: AMOXIC-POT CLAV 875-125MG 1 EACH TAB PO SCH (10:30)
--- NOTE | 2018-08-25 10:32 | P.PN ---
Subjective Progress Note Date: 08/25/18 Principal diagnosis: shortness of breath Patient is a 52-year-old male with a past medical history of hypertension and pneumonia who was transferred here from [facility]. He had been hospitalized on 08/10/2018 for chest pain, tachycardia, and shortness of breath. During that hospitalization he was found to have pneumonia possibly secondary to aspiration, sepsis, severe delirium tremens not responsive to benzodiazepines, and strep pneumonia bacteremia. He is being followed by the hospitalist service, pulmonary, and infectious disease. He was started on Unasyn. He had initially been progressing well and his DTs were improving they were able to decrease his medications. He was placed on oral phenobarbital. His white blood cell count had initially been decreasing but then began to elevate. At that time they performed a CT which showed a loculated pleural effusion. He underwent thoracentesis on 08/17 however the found effusion was found to be persistent and loculated. Repeat blood cultures were obtained and were negative. Pulmonary then recommended transfer to our facility for loculated empyema. He was also noted to have persistent hyponatremia throughout his hospitalization at [facility]. He was seen by interventional radiology and had a pigtail catheter placed on 08/18. He was seen by cardiothoracic and had TPA instilled on the evening of 08/18. He was found to have a hemorrhagic effusion. 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 He was seen by nephrology, placed on fluid restrict and protein supplement were added. He again required TPA on 08/19, 08/20, and 08/22. His chest tube output has been decreasing. Sodium slowly increasing with fluid restriction, then stabilized. New murmur noted on 08/22 and echo showed no signs of vegetation. He was given tolvaptan on 08/23 with good response and his fluid restriction was liberalized. He continued to improve slowly. Cardiothorasic surgery determined chest tube able to be removed 08/25. Patient seen and examined at bedside. No chest pain, SOB, nausea, or vomiting, no constipation Objective - Vital Signs Vital signs: Vital Signs Temp 98.8 F 08/25/18 08:20 Pulse 100 08/25/18 09:20 Resp 17 08/25/18 08:20 BP 146/69 08/25/18 08:20 Pulse Ox 95 08/25/18 08:20 Intake & Output 08/24/18 08/25/18 08/25/18 18:59 06:59 18:59 Intake Total 360 970 Output Total 0 30 0 Balance 360 940 0 Weight 53.6 kg Intake: IV 10 Invasive Line 2 10 Oral 360 960 Output: Chest Tube Drainage 0 30 0 Chest Tube Left 0 30 0 Other: Voiding Method Urinal # Voids 2 # Bowel Movements 0 0 - Exam General: non toxic, no distress, appears at stated age Derm: warm, dry Head: atraumatic, normocephalic, symmetric Eyes: EOMI, no lid lag, anicteric sclera Mouth: no lip lesion, mucus membranes moist Cardiovascular: S1S2 reg, + systolic murmur, positive posterior tibial pulse bilateral, Lungs: decreased be left base , no accessory muscle use chest tube in place with serosanguanous drainage Abdominal: soft, nontender to palpation, no guarding, no appreciable organo megaly Ext: no gross muscle atrophy, no edema, no contractures Neuro: CN II-XI grossly intact, no focal neuro deficits Psych: Alert, oriented, pleasant with appropriate questions - Labs CBC & Chem 7: 08/23/18 11:28 08/25/18 05:58 Labs: Abnormal Lab Results - Last 24 Hours (Table) 08/25/18 Range/Units 05:58 Sodium 133 L (137-145) mmol/L BUN 6 L (9-20) mg/dL Creatinine 0.43 L (0.66-1.25) mg/dL Assessment and Plan Assessment: Bilateral pneumonia , possible aspiration -ID following Augment BID X 2 weeks on discharge, pulmonary hygiene -Pulmonary and ID recs appreciated, Plan f/u wit Pulm in office for repeatt CXR -Budesonide, duoneb prn Left-sided loculated parapneumonic effusion s/p pigtail catheter with TPA on 08/18, 08/19, 08/20, 08/22, 08/23, 08/24 - repeat CT with multiple areas of loculation - cadiothorasic recs appreciated removal of chest tube recommended and IR to remove as they placed chest tube, no plans for surgery at this time. - pain control Strep pneumonia bacteremia - ID recommendations - Has received 2 weeks of IV abx therapy - repeat blood cultures negative to date - echo without signs of vegitation Hyponatremia due to SIADH - nephro recs, tolvaptan 08/23, no fluid restriction, not planning another dose currently - repeat labs in AM Resolved: Sepsis Toxic metabolic encephalopathy secondary to delirium tremens Delirium tremens, resolved Hypertension,resolved Acute hypoxic respiratory failure Plan on return to work on Thursday. Follows with [facility] as his PCP. Will follow with Dr. Stafford and Dr. Valadez after discharge. Will need repeat BMP which can be done when he sees Dr. Stafford. DVT prophylaxis:Lovenox Discussed with: Patient, nursing, Virginia novak NP Anticipated discharge: in AM Anticipated discharge place: home A total of 35 minutes was spent on the care of this complex patient more than 50% of the time was spent in counseling and care coordination.
[2018-08-25 11:57] VITALS: RESP 18
--- NOTE | 2018-08-25 13:57 | P.PN ---
Subjective Progress Note Date: 08/25/18 Principal diagnosis: Loculated left pleural effusion, parapneumonic This is a 52-year-old white male patient that does not have a primary care provider, with past medical history of EtOH abuse, nicotine dependence, who was transferred from [facility] on 08/17/2018 after being hospitalized there for about a week since 08/10/2018. Patient initially presented to [facility] to the hospital with complaints of weakness, shortness of breath, disorientation, he could hardly walk related to his severe dyspnea. He sustained a fall at home, but did not sustain any apparent injuries. Denied any fever or chills, denied any significant cough or congestion, no pleurisy, no chest wall tenderness, no hemoptysis. No nausea, no vomiting or diarrhea, no abdominal pain. H drinks several beers a day on a regular basis, smokes about a pack a day for 34 years, denies any underlying chronic lung condition, not on any oxygen, not any breathing medications or any other prescription medications. 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 Initial chest x-ray showed right upper and left lower lobe infiltrates with small left effusion and suspected nodular pattern over the right upper lobe suspicious for neoplasm. CT chest was completed and showed bilateral areas of consolidation with small left effusion, with a 1.7 cm of loca lized focal consolidation or nodule in the right upper lobe. Patient had a right-sided thoracentesis on 08/17/2018, a follow-up chest x-ray showed moderate to large left loculated pleural effusion, but improvements in the appearance of the left upper lobe infiltrate and right midlung infiltrate. Patient was found to have Cryptococcus pneumonia bacteremia, initially was treated with vancomycin but then switched to Unasyn, which he remains. Patient was transferred to a [facility] on 08/17/2018 with a consult to direction radiology for a pigtail chest tube placement for a loculated left pleural effusion. Chest x-ray completed at this hospital on 08/18/2018 shows a large locular left pleural effusion, or lying mass is not excluded there is mild increased lung markings in the right perihilar region, and a minimal right pleural effusion. Blood work showed white blood cell count of 17.4, hemoglobin of 10.6, INR today is 1.3, sodium is 1:30, potassium is 4.0, chloride is 98, BUN is 9 and creatinine 0.50, AST was 61, ALT was 59, alk phos was 53. Patient is awake and alert, currently in no distress, lung sounds reveal diminished breath sounds on the left, with dullness to percussion, no signs of active delirium, no tremors, no headaches, confusion. Patient is on 6 L per nasal cannula, and his pulse ox is around 94%, he is afebrile, hemodynamically stable. Continues on current antibiotics in the form of Unasyn, he is on nebulized bronchodilators, and Pulmicort. He was on CIWA protocol at [facility]. On 08/19/2018 patient seen in follow-up on the selective care unit, states he didn't sleep well last night, was having discomfort in his left chest. But overall his breathing is stable, he states his not short of breath, productive cough, bringing up some whitish yellowish colored sputum. No fever or chills. Patient received a dose of TPA in the left-sided pigtail chest tube catheter, there has been 1300 mL of dark serosanguineous fluid in the Pleur-evac in the last 24 hours. Today's chest x-ray showed improvement in the size of the left pleural effusion, no pneumothorax. Cytologies pending, cultures are pending, pleural fluid analysis showed exudative fluid. Antibiotic coverage in the form of Unasyn, ID service is following, no fever or chills. Knees on 6 L per high flow nasal cannula, and his pulse ox is 91-94%, hemodynamically stable. On 08/20/2018 patient seen in follow-up on selective care unit, he is resting comfortably in bed, he states his breathing is much easier, less chest tightness, and chest discomfort, his pulse ox is 96% on 3 L, room air pulse ox is 90-92%. His workmen's incentive spirometer, able to achieve 1500, patient was given a dose of TPA yesterday, and there has been 4500 mL of serosanguineous pleural fluid drainage last 24 hours from the left-sided pigtail chest tube catheter. Pleural fluid Gram stain showed no growth at the 24 hours. Blood cultures were negative, pleural fluid cytologies pending. Fever or chills, and today's lab work has been reviewed, white blood cell, 16.3, hemoglobin is 9.7, sodium is 128, potassium is 3.8, chloride is 97, B1 is 90 and creatinine 0.44. Patient has been ambulating to the bathroom and back, tolerating activity fairly well. Lung sounds reveal diminished breath sounds over left lower lobe, with some scattered rales. On 08/22/2018 patient seen in follow-up on selective care unit, he is resting comfortably in bed, in no acute distress, stenosis of TPA was on 08/20/2018, left-sided pigtail chest tube has drained 640 mL of light colored serous drain age, cytology was negative for malignancy, fluid cultures are negative, cytology at [facility] was negative, and cultures showed no growth. She is working on his incentive spirometer, able to achieve 2000 ML on the today, lung sounds are positive for diminished breath sounds at the bases, more so on the left, with a few scattered crackles. She is wearing oxygen for comfort, room air pulse ox is 96%, afebrile, antibiotic coverage in the form of Unasyn. Cultures at [facility] were positive for Streptococcus pneumoniae, repeat blood cultures at this hospital showed no growth. Echocardiogram is pending. On 08/23/2018 patient seen in follow-up on elective care unit, he is awake and alert, off the oxygen, pulse ox is 93-95% on room air, he is still wearing it on as-needed basis for shortness of breath, no chest pain, no fever or chills, hemodynamically stable, pleural fluid cultures remain negative thus far, patient had a CT chest, which showed a multiloculated left-sided pleural effusion, patchy infiltrate left lower lobe and a right upper lobe reflecting underlying pneumonia. She had a dose of TPA instilled yesterday, and he had 440 mL of pleural fluid output in the last 24 hours, antibiotic coverage in the form of Unasyn, echocardiogram showed EF between 55-60%, small pleural effusion, mild MR, mild TR, no aortic stenosis and regurgitation. Right ventricular systolic pressure within normal limits. On 08/24/2018 patient seen in follow-up on selective care unit, resting comfortably in bed, there has been only 40 mL of pleural fluid from the left- sided chest tube in the last 24 hours, patient received another dose of alteplase per CT surgery today, clinically patient is stable, no chest pain, no fever or chills, no difficulty breathing, he is on room air, is working on her incentive spirometer, able to achieve 2500 mL on the today, lung sounds are positive for diminished breath sounds over left lower base, with some limited crackles, today's chest x-ray has been reviewed by Dr. Moise and showed a left- sided consolidation and pleural effusion which seems to be improved in appearance. Today's labs have been reviewed, serum sodium is 134, potassium is 4.2, chloride is 103, BUN is 6, creatinine 0.45, CULTURES remain negative thus far. On 08/25/2018 patient seen in follow-up on selective care unit, left-sided pigtail chest tube catheter has been removed, is only been 30 mL of pleural fluid drainage in the last 24 hours, clinically patient remains stable, no complaints of chest pain, no fever or chills, hemodynamically stable, has been tolerating ambulation, room air pulse ox is 96%, interventional radiology remove the pigtail catheter this morning. His chest x-ray was reviewed with Dr. Haley, shows overall stable findings, chronic. No changes involving the left lower lung, atelectasis and/or scarring in left pleural effusion collection, with successful drainage of the most inferior loculated collection no new infiltrates. He is working with his incentive spirometer. Today's labs have been reviewed, showed serum sodium 133, attest to 0.5, chloride is 98, BUN 6 and creatinine 0.43. Blood pleural fluid culture showed no growth. Patient's Unasyn has been transitioned to oral Augmentin Objective - Vital Signs Vital signs: Vital Signs Temp 98.8 F 08/25/18 08:20 Pulse 102 H 08/25/18 11:53 Resp 18 08/25/18 11:53 BP 173/79 08/25/18 11:53 Pulse Ox 96 08/25/18 11:53 Intake & Output 08/24/18 08/25/18 08/25/18 18:59 06:59 18:59 Intake Total 360 970 360 Output Total 0 30 400 Balance 360 940 -40 Weight 53.6 kg Intake: IV 10 Invasive Line 2 10 Oral 360 960 360 Output: Chest Tube Drainage 0 30 0 Chest Tube Left 0 30 0 Urine 400 Other: Voiding Method Urinal # Voids 2 1 # Bowel Movements 0 0 - Exam GENERAL EXAM: Alert, pleasant, thin, 52-year-old white male, room air, comfortable in no apparent distress. HEAD: Normocephalic/atraumatic. EYES: Normal reaction of pupils, equal size. Conjunctiva pink, sclera white. NOSE: Clear with pink turbinates. THROAT: No erythema or exudates. NECK: No masses, no JVD, no thyroid enlargement, no adenopathy. CHEST: No chest wall deformity. Symmetrical expansion. Left-sided pigtail chest tube has been removed, sounds diminished over left lower lobe, with the some limited rales LUNGS: Equal air entry with diminished breath sounds over left mid and lower lobe and dullness to percussion over the same area, better aeration noted on today's exam. CVS: Regular rate and rhythm, normal S1 and S2, no gallops, no murmurs, no rubs ABDOMEN: Soft, nontender. No hepatosplenomegaly, normal bowel sounds, no guarding or rigidity. EXTREMITIES: No clubbing, no edema, no cyanosis, 2+ pulses and upper and lower extremities. MUSCULOSKELETAL: Muscle strength and tone normal. SPINE: No scoliosis or deformity SKIN: No rashes CENTRAL NERVOUS SYSTEM: Alert and oriented -3. No focal deficits, tone is normal in all 4 extremities. PSYCHIATRIC: Alert and oriented -3. Appropriate affect. Intact judgment and insight. - Labs CBC & Chem 7: 08/23/18 11:28 08/25/18 05:58 Labs: Abnormal Lab Results - Last 24 Hours (Table) 08/25/18 Range/Units 05:58 Sodium 133 L (137-145) mmol/L BUN 6 L (9-20) mg/dL Creatinine 0.43 L (0.66-1.25) mg/dL Assessment and Plan Plan: Assessment: #1. Acute hypoxemic respiratory failure related to acute pneumonia, possibly related to aspiration, with sepsis. Imaging taken at another hospital showed bilateral pneumonia #2. Large loculated left pleural effusion, parapneumonic, status post left- sided thoracentesis on 08/17/2018, cultures and cytology negative at [facility]. Status post left pigtail chest tube insertion on 08/19/2018, with TPA infusions. Cultures have been negative at [facility] as well, patient continues on antibiotic coverage in the form of Unasyn #3. Delirium tremens, not currently active, patient was hospitalized for a week at [facility], and was maintained on CIWA #4. Acute Streptococcus pneumonia bacteremia, initially treated with vancomycin, currently on Unasyn. Echocardiogram was completed at [facility] and showed low normal left ventricular function with ejection fraction of 50% #5. Hyponatremia, could be related to history of chronic alcohol use, improving #6. Hypertension #7. Daily EtOH use, several beers a day #8. Chronic and ongoing nicotine dependence, carries [id number] smoking history Plan: Patient is stable for discharge home today from pulmonary perspective, right- sided chest tube has been removed, there has been the only 30 mL of pleural fl uid drainage in last 24 hours, vital signs remain stable, no fever chills, he is tolerating ambulation, pleural fluid cultures have been negative, he was transitioned to oral Augmentin. His chest x-ray has been reviewed by Dr. Moise, and shows persistent left lower lung atelectasis and/or scarring, left pleural fluid collection, with successful drainage of the most inferior loculated collection. No new infiltrates. We will continue on as-needed basis, patient will need outpatient follow-up with Dr. Rolle in the office. Stable for discharge home today. & physical examination of the patient and discussed their management with my nurse practitioner, Kassandra Suarez. I reviewed the nurse practitioner's note and agree with the documented findings and plan of care. Lung sounds are posit camila for breast sounds on the left, with dullness to percussion. The findings and the impression was discussed with the patient. I attest to the documentation by the nurse practitioner. Time with Patient: Less than 30
--- NOTE | 2018-08-25 15:59 | PN ---
PROGRESS NOTE DATE OF SERVICE: 08/25/2018 REASON FOR FOLLOWUP: Pneumonia with parapneumonic effusion. INTERVAL HISTORY: The patient is currently afebrile. The patient has been breathing comfortably. Denies having any chest pain. Occasional cough. No abdominal pain or diarrhea. PHYSICAL EXAMINATION: Blood pressure is 173/79 with a pulse of 102, temperature 98.8. He is 96% on room air. General description is a middle-aged male up in the bed in no distress. RESPIRATORY SYSTEM: Unlabored breathing with decreased breath sounds at the base. No wheeze. HEART: S1, S2. Regular rate and rhythm. ABDOMEN: Soft. No tenderness. LABS: BUN of 6, creatinine 0.43. Culture has been negative. DIAGNOSTIC IMPRESSION AND PLAN: Patient with left lower lobe pneumonia with parapneumonic effusion, status post chest tube that has been discontinued. The patient seems to have shown overall clinical improvement. Plan at this time is to finish therapy with oral Augmentin for at least 2 weeks with close outpatient followup. Continue with supportive care. MMODL / IJN: [id number] /
[2018-08-25 16:05] VITALS: BP 180/85; PULSE 100; TEMP 97.6
--- NOTE | 2018-08-25 17:15 | P.DS ---
Providers Date of admission: 08/17/18 20:07 Expected date of discharge: 08/25/18 Attending physician: Jenn Greer DO Consults: 08/17/18 21:46 Consult Physician Routine Consulting Provider: Tavares Rolle Consult Reason/Comments: LEFT PLEURAL EFFUSION Do you want consulting provider notified?: Yes Consult Physician Routine Consulting Provider: Jace Infante Consult Reason/Comments: HYPONATREMIA Do you want consulting provider notified?: Yes 08/18/18 07:54 Consult Physician Routine Consulting Provider: Lj Nur Consult Reason/Comments: bacteremia Do you want consulting provider notified?: Yes 08/18/18 15:19 Consult Physician Routine Consulting Provider: Lasha Paredes Consult Reason/Comments: left loculated pleural effusion, status Pig tail insertion Do you want consulting provider notified?: Yes Primary care physician: Stated None Hospital Course: Discharge Diagnosis: Loculated left pleural effusion, parapneumonic Pneumonia, possible gram negative Strep bacteremia Toxic metabolic encephalopathy Delirium tremens SIADH Tobacco abuse Sepsis HTN Acute hypoxic respiratory failure Hospital Course: Patient is a 52-year-old male with a past medical history of hypertension and pneumonia who was transferred here from [facility]. He had been hospitalized on 08/10/2018 for chest pain, tachycardia, and shortness of breath. During that hospitalization he was found to have pneumonia possibly secondary to aspiration, sepsis, severe delirium tremens not responsive to benzodiazepines, and strep pneumonia bacteremia. He is being followed by the hospitalist service, pulmonary, and infectious disease. He was started on Unasyn. He had initially been progressing well and his DTs were improving they were able to decrease his medications. He was placed on oral phenobarbital. His white blood cell count had initially been decreasing but then began to elevate. At that time they performed a CT which showed a loculated pleural effusion. He underwent thoracentesis on 08/17 however the found effusion was found to be persistent and loculated. Repeat blood cultures were obtained and were negative. Pulmonary then recommended transfer to our facility for loculated empyema. He was also noted to have persistent hyponatremia throughout his hospitalization at [facility]. He was seen by interventional radiology and had a pigtail catheter placed on 08/18. He was seen by cardiothoracic and had TPA instilled on the evening of 08/18. He was found to hav e a hemorrhagic effusion. He again required TPA on 08/19, 08/20, and 08/22. His chest tube output has been decreasing. He continued to improve slowly. Cardiothorasic surgery determined chest tube able to be removed 08/25. 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 He was seen by nephrology, placed on fluid restrict and protein supplement were added. He was given tolvaptan on 08/23 with good response and his fluid restriction was liberalized. New murmur noted on 08/22 and echo showed no signs of vegetation. Infectious disease recommended 2 weeks of oral augmentin as he completed 2 weeks of IV abx in the hosptial. He was determined stable for discharge as he tolerated removal of the pigtail catheter by IR. He will follow up with his family doctor, he cannot remember the name but he is located in [place]. He will also follow closely with Dr. Rolle, Dr. Nur, and Dr. Stafford. He will have follow-up chest x-ray in 1 week. For physical exam see progress note same date A total of 45 minutes of time were spent preparing this complex discharge summary . Pertinent Studies: CT chest-multi loculated left-sided pleural effusion collection with internal foci of air felt to reflect empyema Echo- EF preserved, no vegitations Patient Condition at Discharge: Stable Plan - Discharge Summary Discharge Rx Participant: No New Discharge Prescriptions: New Amoxic-Pot Clav 875-125Mg [Augmentin 875-125] 1 each PO Q12HR #28 tab Ibuprofen [Motrin] 600 mg PO Q8HR PRN #30 tab PRN Reason: Pain Famotidine [Pepcid] 20 mg PO DAILY PRN #30 tablet PRN Reason: Nausea Continue Acetaminophen Tab [Tylenol] 650 mg PO Q6H PRN PRN Reason: Pain Discontinued Aminah [employer] 1 tab PO Q6H PRN PRN Reason: Pain Discharge Medication List Acetaminophen Tab [Tylenol] 650 mg PO Q6H PRN 08/17/18 [History] Amoxic-Pot Clav 875-125Mg [Augmentin 875-125] 1 each PO Q12HR #28 tab 08/25/18 [Rx] Famotidine [Pepcid] 20 mg PO DAILY PRN #30 tablet 08/25/18 [Rx] Ibuprofen [Motrin] 600 mg PO Q8HR PRN #30 tab 08/25/18 [Rx] Follow up Appointment(s)/Referral(s): Tamy Stafford MD [STAFF PHYSICIAN] - 1 Week None,Stated [Primary Care Provider] - 1 Week (Please contact insurance company about finding a primary provider under your coverage.) Lj Nur MD [STAFF PHYSICIAN] - 1 Week Tavares Rolle MD [STAFF PHYSICIAN] - 1 Week Patient Instructions/Handouts: Pneumonia (DC) Activity/Diet/Wound Care/Special Instructions: Regular diet, Drink to comfort but do not aggressively consume water. Activity as tolerated Abstain from alcohol. BMP when you see Dr. Stafford Return to work on Wednesday 08/30 without restrictions Discharge/Stand Alone Forms: Work/Release Restrictions Form Discharge Disposition: HOME SELF-CARE
--- NOTE | 2018-08-25 21:47 | PN ---
PROGRESS NOTE Patient is seen for followup for hyponatremia secondary to SIADH. Patient received a dose of tolvaptan. His serum sodium had increased to 135. It is now slowly trending down. However, patient had been lax on his fluid restriction. He can be discharged today and he will have repeat labs done in about 3 to 4 days' time post discharge. On examination today, blood pressure was 146/69, heart rate of 80 per minute. Patient is afebrile. EXAMINATION OF THE HEART: S1 and S2. EXAMINATION OF LUNGS: Decreased breath sounds at bases, particularly left side. Examination of lower extremities shows no evidence of Edema. ABDOMEN: Soft, non-tender. Labs show sodium 133, potassium 4.5, BUN 6, serum creatinine 0.43. ASSESSMENT: 1. Hyponatremia secondary to syndrome of inappropriate antidiuretic hormone, status post one dose of tolvaptan. Patient will be maintained on fluid restriction. He can be discharged, but he will need followup as outpatient in about 3 to 4 days' time with repeat labs to be done as outpatient. Patient is advised to maintain good oral protein intake and maintain 1200 mL fluid restriction. 2. Streptococcal sepsis, currently improved. 3. Status post pneumonia. 4. Loculated left pleural effusion/empyema, status post chest tubes and tPA. MMODL / IJN: [id number] /
== END 2018-08-25 17:47 | disposition home or self-care (01) | DRG 177 ==
LOC: 3SCARD 20:07
PROVIDERS: ADMIT Internal Medicine; ATTEND Internal Medicine
PROC: 0W9B30Z Drainage of Left Pleural Cavity with Drainage Device, Percutaneous Approach (ICD-10-PCS; principal; 2018-08-17)
DX: J86.9 Pyothorax without fistula (principal); J15.6 Pneumonia due to other Gram-negative bacteria; J69.0 Pneumonitis due to inhalation of food and vomit; J96.01 Acute respiratory failure with hypoxia; E22.2 Syndrome of inappropriate secretion of antidiuretic hormone; E87.2 Acidosis; F10.231 Alcohol dependence with withdrawal delirium; J44.0 Chronic obstructive pulmonary disease with (acute) lower respiratory infection; J91.8 Pleural effusion in other conditions classified elsewhere; E86.1 Hypovolemia; F17.210 Nicotine dependence, cigarettes, uncomplicated; I10 Essential (primary) hypertension; R01.1 Cardiac murmur, unspecified; Z87.01 Personal history of pneumonia (recurrent)
CPT/HCPCS: 32551; 71045; 71046; 71260; 76942; 80048; 80051; 80053; 82945; 83615; 83735; 83930; 83935; 84157; 84300; 84443; 85025; 85027; 85610; 87040; 87070; 87075; 87205; 88108; 88305; 89050; 93306; 94640; 94760

== ENCOUNTER 2019-08-04 11:03 | Emergency (ER) | payer BC ==
[2019-08-04 11:22] VITALS: TEMP 98.1
--- NOTE | 2019-08-04 12:00 | ED ---
URI HPI - General Chief Complaint: Upper Respiratory Infection Stated Complaint: chest congestion Time Seen by Provider: 08/04/19 11:41 Source: patient Mode of arrival: ambulatory Limitations: no limitations - History of Present Illness Initial Comments: 53-year-old male presenting for cough congestion and facial pressure. Patient is concerned she has possible pneumonia. Patient denies chest pain shortness of breath and leg swelling. Patient denies hemoptysis or any other complaints. Patient denies reporting fevers. Patient has slight sore throat, more of a tickle, denies difficulty swallowing. Remaingin ROS (-). Upon arrival patient appears well there is no signs of acute distress. - Related Data Home Medications Medication Instructions Recorded Confirmed Acetaminophen Tab [Tylenol] 650 mg PO Q6H PRN 08/17/18 08/17/18 Previous Rx's Medication Instructions Recorded Amoxic-Pot Clav 875-125Mg 1 each PO Q12HR #28 tab 08/25/18 [Augmentin 875-125] Famotidine [Pepcid] 20 mg PO DAILY PRN #30 tablet 08/25/18 Ibuprofen [Motrin] 600 mg PO Q8HR PRN #30 tab 08/25/18 Albuterol Inhaler [Ventolin Hfa 1 - 2 puff INHALATION RT-Q6H PRN 7 08/04/19 Inhaler] Days #1 inhaler Azithromycin [Zithromax Z-pack] 0 mg PO DIRECTED #6 tab 08/04/19 predniSONE 50 mg PO DAILY 4 Days #4 tab 08/04/19 Allergies Allergy/AdvReac Type Severity Reaction Status Date / Time No Known Allergies Allergy Unverified 08/17/18 20:32 Review of Systems ROS Statement: Those systems with pertinent positive or pertinent negative responses have been documented in the HPI. ROS Other: All systems not noted in ROS Statement are negative. Past Medical History Past Medical History: Hypertension, Pneumonia Additional Past Medical History / Comment(s): Jose Raul any other medical history History of Any Multi-Drug Resistant Organisms: None Reported Past Surgical History: No Surgical Hx Reported Past Anesthesia/Blood Transfusion Reactions: No Reported Reaction Past Psychological History: No Psychological Hx Reported Smoking Status: Current every day smoker Past Alcohol Use History: Daily, Heavy Past Drug Use History: None Reported General Exam - General Exam Comments Initial Comments: General: The patient is awake and alert, in no distress, and does not appear acutely ill. Eye: +3 mm pupils are equal, round and reactive to light, extra-ocular movements are intact. No nystagmus. There is normal conjunctiva bilaterally. No signs of icterus. No photophobia Ears, nose, mouth and throat: There are moist mucous membranes and no oral lesions. Oropharynx was not erythematous there is no tonsillar enlargement exudates or lesions. Uvula midline. Tympanic membranes are not erythematous or is no effusions bulging or retraction. No tenderness to palpation of the mastoid. No anterior cervical lymphadenopathy. Rhinorrhea, clear and bilateral nares. No tripoding, no drooling. Neck: The neck is supple, there is no tenderness or JVD. No nuchal rigidity Cardiovascular: There is a regular rate and rhythm. No murmur, rub or gallop is appreciated. Respiratory: Lungs are clear to auscultation, respirations are non-labored, breath sounds are equal. No wheezes, stridor, rales, or rhonchi. No retractions or abdominal breathing. Gastrointestinal: Soft, non-distended, non-tender abdomen without masses or organomegaly noted. There is no rebound or guarding present. Bowel sounds are unremarkable. Musculoskeletal: Normal ROM, no tenderness. Strength 5/5. Sensation intact. Radial pulses equal bilaterally 2+. Neurological: A&O x 3. CN II-XII intact, There are no obvious motor or sensory deficits. Coordination appears grossly intact. Speech appears normal, no muffling. Skin: Skin is warm and dry and no rashes or lesions are noted. No extremity edema Psychiatric: Cooperative Limitations: no limitations Course Vital Signs 08/04/19 08/04/19 08/04/19 11:19 12:22 13:00 Temperature 98.1 F Pulse Rate 93 80 80 Respiratory 18 20 20 Rate Blood Pressure 153/88 152/82 153/80 O2 Sat by Pulse 99 98 98 Oximetry 08/04/19 13:31 Temperature Pulse Rate Respiratory 20 Rate Blood Pressure O2 Sat by Pulse Oximetry Medical Decision Making - Medical Decision Making 53-year-old male presenting for cough congestion x 2 days. Obvious URI symptoms on physical examination. Lungs clear patient is every day smoker. Chest x-ray revealed no focal infiltrates. Patient is afebrile nontoxic in appearance. Influenza testing negative. Remaining ROS (-). Upon arrival patient appears well there is no signs of acute distress. Discussed case attending provider and reviewed chest x-ray which shows an area of possible scarring discussed this incident L finding and recommended follow-up with patient otherwise at this time of any provider recommends discharge with treatment of URI with azithromycin steroids and albuterol inhaler given history of lung disease patient is agreeable to this care plan and discharge at this time - Lab Data Lab Results 08/04/19 Range/Units 11:57 Influenza Type A RNA Not Detected (Not Detectd) Influenza Type B (PCR) Not Detected (Not Detectd) Disposition Clinical Impression: Cough, Congestion of nasal sinus, Lung abnormality, URI (upper respiratory infection) Disposition: HOME SELF-CARE Condition: Good Instructions (If sedation given, give patient instructions): Upper Respiratory Infection (ED) Additional Instructions: Please use medication as discussed. Please follow-up with family doctor in the next 2 days. Please return to emergency room if the symptoms increase or worsen or for any other concerns. Prescriptions: predniSONE 50 mg PO DAILY 4 Days #4 tab Albuterol Inhaler [Ventolin Hfa Inhaler] 1 - 2 puff INHALATION RT-Q6H PRN 7 Days #1 inhaler PRN Reason: Wheezing Azithromycin [Zithromax Z-pack] 0 mg PO DIRECTED #6 tab Is patient prescribed a controlled substance at d/c from ED?: No Referrals: None,Stated [Primary Care Provider] - 1-2 days [facility] [NON-STAFF] - 1-2 days Time of Disposition: 12:57
--- NOTE | 2019-08-04 12:39 | XR ---
EXAMINATION TYPE: XR chest 2V DATE OF EXAM: 08/04/2019 COMPARISON: 08/25/2018 HISTORY: 53-year-old male with cough TECHNIQUE: PA and lateral views FINDINGS: The cardiomediastinal silhouette, aorta, and pulmonary vasculature are within normal limits. Some ivania nting of the left costophrenic angle. Hyperinflation. No consolidation or pleural effusion. IMPRESSION: 1. COPD. 2. Blunted left costophrenic angle could reflect small effusion versus pleural parenchymal scarring. Follow-up can be considered.
[2019-08-04 13:30] VITALS: PULSE 80; RESP 20
[2019-08-04 13:31] VITALS: BP 153/80
== END 2019-08-04 13:32 | disposition home or self-care (01) ==
LOC: EC 11:03
DX: J06.9 Acute upper respiratory infection, unspecified (principal); R91.8 Other nonspecific abnormal finding of lung field; I10 Essential (primary) hypertension; F17.200 Nicotine dependence, unspecified, uncomplicated; Z87.01 Personal history of pneumonia (recurrent)
CPT/HCPCS: 71046; 87502; 99283

== ENCOUNTER 2021-11-13 15:02 | Emergency (ER) | payer BC, OTHER ==
[2021-11-13 15:14] VITALS: TEMP 98
[2021-11-13 18:26] VITALS: RESP 16
[2021-11-13 18:28] LABS: HCT 40.9 % (39.0-53.0); HGB 13.4 gm/dL (13.0-17.5); MCH 36.8 pg (25.0-35.0); MCHC 32.7 g/dL (31.0-37.0); MCV 112.3 fL (80.0-100.0); Macrocytosis Marked; Mean Platelet Volume 10.1; Platelet Count 123 k/uL (150-450); RBC 3.65 m/uL (4.30-5.90); RDW 15.4 % (11.5-15.5); WBC 18.2 k/uL (3.8-10.6)
[2021-11-13 18:32] LABS: Appearance,Urine Clear (Clear); Bilirubin,Urine Negative (Negative); Blood,Urine Negative (Negative); Color,Urine Yellow; Glucose,Urine (UA) Negative (Negative); Ketones,Urine Negative (Negative); Leukocyte Esterase,Urine Negative (Negative); Nitrite,Urine Negative (Negative); PH, Urine 5.5 (5.0-8.0); Protein,Urine Negative (Negative); Specific Gravity,Urine 1.018 (1.001-1.035); Urobilinogen,Urine <2.0 mg/dL (<2.0)
[2021-11-13 18:37] LABS: INR 1.1 (<1.2); Partial Thromboplastin Time 25.9 sec (22.0-30.0); Prothrombin Time 11.7 sec (9.0-12.0)
[2021-11-13 18:38] LABS: ALT 159 U/L (4-49); AST 158 U/L (17-59); African American GFR (CKD) >90 (>60 ml/min/1.73 sqM); Albumin 2.8 g/dL (3.5-5.0); Alkaline Phosphatase 254 U/L (38-126); Amylase 78 U/L (30-110); Anion Gap 5 mmol/L; Blood Urea Nitrogen 15 mg/dL (9-20); Calcium 7.8 mg/dL (8.4-10.2); Carbon Dioxide 25 mmol/L (22-30); Chloride 94 mmol/L (98-107); Glucose 95 mg/dL (74-99); Lipase 222 U/L (23-300); Non-African American GFR(CKD) >90 (>60 ml/min/1.73 sqM); Sodium 124 mmol/L (137-145); Total Bilirubin 4.2 mg/dL (0.2-1.3); Total Protein 6.2 g/dL (6.3-8.2)
[2021-11-13 18:41] LABS: Potassium 4.8 mmol/L (3.5-5.1)
[2021-11-13 19:10] LABS: Band Neutrophils % 1 %; Lymphocytes # (M) 1.27 k/uL (1.0-4.8); Monocytes # (M) 1.27 k/uL (0-1.0); Neutrophils % (M) 85 %; Nucleated Red Blood Cells 0 /100 WBC (0-0); Total Cells Counted 100
--- NOTE | 2021-11-13 19:11 | XR ---
EXAMINATION TYPE: XR KUB DATE OF EXAM: 11/13/2021 6:46 PM INDICATION: Patient age:Male; 56 years old; Reason for study: abdominal pain; COMPARISON: None. TECHNIQUE: One radiographic view of the abdomen was obtained. FINDINGS: The bowel gas pattern is nonspecific without dilated loops of small or large bowel. There i s no evidence for organomegaly or pneumoperitoneum. The osseous structures are intact. No abnormal calcifications are present. Fecal material and gas are demonstrated throughout the colon and rectum. Atherosclerosis of the arterial vasculature. IMPRESSION: Nonspecific bowel gas pattern without radiographic evidence for acute process.
--- NOTE | 2021-11-13 19:30 | ED ---
Abdominal Pain HPI - General Chief Complaint: Abdominal Pain Stated Complaint: Abd Swelling/Unable to Urinate Time Seen by Provider: 11/13/21 18:01 Source: patient, RN notes reviewed Mode of arrival: ambulatory Limitations: no limitations - History of Present Illness Initial Comments: 56-year-old male history of liver failure who was just discharged from [facility] in [place] with last paracentesis be performed on last Thursday being 5 days ago. He presents today with complaints of some abdominal distention and inability urinate. He denies any nausea vomiting fevers chills sweats or other symptoms he states he still has some drainage from the paracentesis site is not discolored or foul-smelling. MD Complaint: abdominal pain - Related Data Home Medications Medication Instructions Recorded Confirmed Furosemide [Lasix] 40 mg PO DAILY 11/13/21 11/13/21 Lactulose 20 gm PO DAILY 11/13/21 11/13/21 Pantoprazole Sodium [Protonix] 40 mg PO BID 11/13/21 11/13/21 Spironolactone 25 mg PO DAILY 11/13/21 11/13/21 Allergies Allergy/AdvReac Type Severity Reaction Status Date / Time No Known Allergies Allergy Verified 11/13/21 18:13 Review of Systems ROS Statement: Those systems with pertinent positive or pertinent negative responses have been documented in the HPI. ROS Other: All systems not noted in ROS Statement are negative. Past Medical History Past Medical History: Hypertension, Pneumonia Additional Past Medical History / Comment(s): Jose Raul any other medical history History of Any Multi-Drug Resistant Organisms: None Reported Past Surgical History: No Surgical Hx Reported Past Anesthesia/Blood Transfusion Reactions: No Reported Reaction Past Psychological History: No Psychological Hx Reported Smoking Status: Current every day smoker Past Alcohol Use History: Daily, Heavy Past Drug Use History: None Reported General Exam - General Exam Comments Initial Comments: This a well-developed asthenic appearing male who is awake alert oriented 4 Limitations: no limitations General appearance: alert, in no apparent distress Head exam: Present: atraumatic, normocephalic, normal inspection Eye exam: Present: normal appearance, PERRL, EOMI. Absent: scleral icterus, conjunctival injection, periorbital swelling ENT exam: Present: normal exam, mucous membranes moist Neck exam: Present: normal inspection. Absent: tenderness, meningismus, lymphadenopathy Respiratory exam: Present: normal lung sounds bilaterally. Absent: respiratory distress, wheezes, rales, rhonchi, stridor Cardiovascular Exam: Present: normal rhythm, tachycardia, normal heart sounds. Absent: systolic murmur, diastolic murmur, rubs, gallop, clicks GI/Abdominal exam: Present: soft, distended, normal bowel sounds, other (Distended abdomen consistent with ascites also a distended bladder. Left lower quadrant paracentesis site is dressed no evidence of any questions infectious process). Absent: tenderness, guarding, rebound, rigid Extremities exam: Present: normal inspection, full ROM, normal capillary refill. Absent: tenderness, pedal edema, joint swelling, calf tenderness Back exam: Present: normal inspection Neurological exam: Present: alert, oriented X3, CN II-XII intact Psychiatric exam: Present: normal affect, normal mood Skin exam: Present: warm, dry, intact, normal color. Absent: rash Course Vital Signs 11/13/21 11/13/21 15:11 18:25 Temperature 98 F Pulse Rate 117 H 115 H Respiratory 20 16 Rate Blood Pressure 114/69 139/87 O2 Sat by Pulse 98 99 Oximetry - Reevaluation(s) Reevaluation #1: 11/13/21 19:25 Patient did have a Marks catheter placed with 600 mL of urine. He feels much improved. Medical Decision Making - Medical Decision Making I did discuss findings with the patient. He is feeling much improved. He is slightly tachycardic he states this is normal for him. He states he does have close follow-up and would like to be discharged and go home. He also like to fully catheter removed. We did have blood on discussion regarding return parameters he is in agreement of this. Additionally did discuss the leukocy tosis which likely at this time is reactive. Patient has no abdominal pain no fevers chills sweats or other clinical evidence of infectious processes at this time. - Lab Data Result diagrams: 11/13/21 18:11 11/13/21 18:11 Lab Results 11/13/21 11/13/21 11/13/21 Range/Units 18:11 18:11 18:11 WBC 18.2 H (3.8-10.6) k/uL RBC 3.65 L (4.30-5.90) m/uL Hgb 13.4 (13.0-17.5) gm/dL Hct 40.9 (39.0-53.0) % MCV 112.3 H (80.0-100.0) fL MCH 36.8 H (25.0-35.0) pg MCHC 32.7 (31.0-37.0) g/dL RDW 15.4 (11.5-15.5) % Plt Count 123 L (150-450) k/uL MPV 10.1 Neutrophils % (Manual) 85 % Band Neuts % (Manual) 1 % Lymphocytes % (Manual) 7 % Monocytes % (Manual) 7 % Neutrophils # (Manual) 15.60 H (1.3-7.7) k/uL Lymphocytes # (Manual) 1.27 (1.0-4.8) k/uL Monocytes # (Manual) 1.27 H (0-1.0) k/uL Nucleated RBCs 0 (0-0) /100 WBC Manual Slide Review Performed Macrocytosis Marked A PT 11.7 (9.0-12.0) sec INR 1.1 (<1.2) APTT 25.9 (22.0-30.0) sec Sodium (137-145) mmol/L Potassium (3.5-5.1) mmol/L Chloride (98-107) mmol/L Carbon Dioxide (22-30) mmol/L Anion Gap mmol/L BUN (9-20) mg/dL Creatinine (0.66-1.25) mg/dL Est GFR (CKD-EPI)AfAm (>60 ml/min/1.73 sqM) Est GFR (CKD-EPI)NonAf (>60 ml/min/1.73 sqM) Glucose (74-99) mg/dL Calcium (8.4-10.2) mg/dL Total Bilirubin (0.2-1.3) mg/dL AST (17-59) U/L ALT (4-49) U/L Alkaline Phosphatase (38-126) U/L Total Protein (6.3-8.2) g/dL Albumin (3.5-5.0) g/dL Amylase (30-110) U/L Lipase (23-300) U/L Urine Color Yellow Urine Appearance Clear (Clear) Urine pH 5.5 (5.0-8.0) Ur Specific [place] 1.018 (1.001-1.035) Urine Protein Negative (Negative) Urine Glucose (UA) Negative (Negative) Urine Ketones Negative (Negative) Urine Blood Negative (Negative) Urine Nitrite Negative (Negative) Urine Bilirubin Negative (Negative) Urine Urobilinogen <2.0 (<2.0) mg/dL Ur Leukocyte Esterase Negative (Negative) 11/13/21 Range/Units 18:11 WBC (3.8-10.6) k/uL RBC (4.30-5.90) m/uL Hgb (13.0-17.5) gm/dL Hct (39.0-53.0) % MCV (80.0-100.0) fL MCH (25.0-35.0) pg MCHC (31.0-37.0) g/dL RDW (11.5-15.5) % Plt Count (150-450) k/uL MPV Neutrophils % (Manual) % Band Neuts % (Manual) % Lymphocytes % (Manual) % Monocytes % (Manual) % Neutrophils # (Manual) (1.3-7.7) k/uL Lymphocytes # (Manual) (1.0-4.8) k/uL Monocytes # (Manual) (0-1.0) k/uL Nucleated RBCs (0-0) /100 WBC Manual Slide Review Macrocytosis PT (9.0-12.0) sec INR (<1.2) APTT (22.0-30.0) sec Sodium 124 L (137-145) mmol/L Potassium 4.8 (3.5-5.1) mmol/L Chloride 94 L (98-107) mmol/L Carbon Dioxide 25 (22-30) mmol/L Anion Gap 5 mmol/L BUN 15 (9-20) mg/dL Creatinine 0.83 (0.66-1.25) mg/dL Est GFR (CKD-EPI)AfAm >90 (>60 ml/min/1.73 sqM) Est GFR (CKD-EPI)NonAf >90 (>60 ml/min/1.73 sqM) Glucose 95 (74-99) mg/dL Calcium 7.8 L (8.4-10.2) mg/dL Total Bilirubin 4.2 H (0.2-1.3) mg/dL AST 158 H (17-59) U/L ALT 159 H (4-49) U/L Alkaline Phosphatase 254 H (38-126) U/L Total Protein 6.2 L (6.3-8.2) g/dL Albumin 2.8 L (3.5-5.0) g/dL Amylase 78 (30-110) U/L Lipase 222 (23-300) U/L Urine Color Urine Appearance (Clear) Urine pH (5.0-8.0) Ur Specific [place] (1.001-1.035) Urine Protein (Negative) Urine Glucose (UA) (Negative) Urine Ketones (Negative) Urine Blood (Negative) Urine Nitrite (Negative) Urine Bilirubin (Negative) Urine Urobilinogen (<2.0) mg/dL Ur Leukocyte Esterase (Negative) Disposition Clinical Impression: Acute urinary retention, Chronic liver failure, Chronic tachycardia, Leukocytosis Disposition: HOME SELF-CARE Condition: Stable Instructions (If sedation given, give patient instructions): Urinary Retention in Men (ED), Ascites (ED) Is patient prescribed a controlled substance at d/c from ED?: No Referrals: Parish Miranda MD [Primary Care Provider] - 1-2 days Decision Date: 11/13/21 Decision Time: 19:30
[2021-11-13 19:40] VITALS: BP 119/77; PULSE 102
== END 2021-11-13 19:41 | disposition home or self-care (01) ==
LOC: EC 15:02
DX: I10 Essential (primary) hypertension (principal); F17.200 Nicotine dependence, unspecified, uncomplicated; K72.10 Chronic hepatic failure without coma; D72.829 Elevated white blood cell count, unspecified; R33.9 Retention of urine, unspecified
CPT/HCPCS: 36415; 74018; 80053; 81003; 82150; 83690; 85025; 85610; 85730

== ENCOUNTER 2022-12-02 08:51 | Inpatient (IN) | payer OTHER ==
[2022-11-27 14:15] VITALS: BMI 22.3
[2022-12-02] MEDS: LACTATED RINGERS 1,000 ML IV SCH (09:22)
[2022-12-02] MEDS ORDERED: PROPOFOL 10 MG/ML 20 ML VIAL IV ONE (09:49)
[2022-12-02] MEDS ORDERED: GLYCOPYRROLATE 0.2 MG/ML 2 ML VIAL ONE (09:49)
[2022-12-02] MEDS ORDERED: LIDOCAINE 2% INJ 20 MG/ML (2 ML VIAL) ONE (09:49)
--- NOTE | 2022-12-02 10:10 | P.PCN ---
Date of Procedure: 12/02/22 Procedure(s) Performed: BRIEF HISTORY: Patient is a 57-year-old, pleasant, white male with history of alcohol related liver cirrhosis scheduled for an upper endoscopy as a part of follow-up of esophageal varices. Patient stated that he had an upper endoscopy done approximately a year ago at [facility] in [place] for an acute upper GI bleed and was diagnosed with esophageal varices. 2 cm and had esophageal variceal ligation done at that time.. PROCEDURE PERFORMED: Esophagogastroduodenoscopy with cautery. PREOPERATIVE DIAGNOSIS: History of liver cirrhosis/esophageal varices. IV sedation per anesthesia. PROCEDURE: After informed consent was obtained, the patient was brought into the endoscopy unit. IV sedation was administered by Anesthesia under continuous monitoring. Initially the Olympus GIF-140 video endoscope was inserted into the mouth. Esophagus intubated without any difficulty. It was gradually advanced into the stomach and duodenum and carefully examined. The bulb and the second part of the duodenum appeared normal. There was a 3 mm nonbleeding angiectasia in the bulb of the duodenum that was cauterized using a gold probe. The scope at this time was withdrawn to the stomach, adequately insufflated with air, and upon careful examination, mucosa of the antrum, appeared normal. There was changes of mild portal hypertensive gastropathy noted in the fundus of the stomach. The scope was then withdrawn into the esophagus. Small hiatal hernia noted. The GE junction was located at 39 cm from the incisors. The esophagus appeared normal. There were no erosions or ulcerations seen and no evidence of esophageal varices and the patient tolerated the procedure well. IMPRESSION: 1. No evidence of esophageal varices. 2. Small hiatal hernia 3. Mild portal hypertensive gastropathy 4. 3 mm nonbleeding angiectasia in the duodenal bulb status post cautery using a cold. RECOMMENDATIONS: The findings of this examination were discussed with the patient as well as his family. He was advised to have a repeat upper endoscopy in 2-3 years to screen for esophageal varices.
[2022-12-02] MEDS ORDERED: IV FLUID CONTINUATION 1,000 ML IV ONE (10:15)
--- NOTE | 2022-12-02 12:11 | P.CRDCN ---
History of Present Illness History of present illness: HISTORY OF PRESENTING ILLNESS This is a pleasant 57-year-old with past medical history significant for alcohol abuse, liver cirrhosis, varices. Patient does not follow with a rack maker. Patient presented for elective outpatient EGD for history of liver cirrhosis and varices. No telemetry was performed before procedure however during procedure, patient was noted to have bradycardic episodes on the 30s and 40s. Appeared to be junctional rhythm and questionable atrial fibrillation with loss of P waves however regular rhythm with heart rate in the 40s. Patient hemodynamically was stable. He denies any symptoms of lightheadedness, chest pain, shortness breath. He states that home if he does too much she will get somewhat winded however has been fairly chronic. Denies any recent hematochezia or melena. Denies any history of any cardiac issues. He does smoke, still drinks 2-3 beers every other day and no illicit drugs. No family history of CAD. He states he has never lost consciousness. EKG shows intermittent episodes of sinus rhythm and what appears to be brief SVT with P waves then quickly transitions to a slow HR in the 40's with regular rhythm and loss of P wave, appearing to represent Afib with junctional rhythm. There is J point elevation. No recent labs REVIEW OF SYSTEMS At the time of my exam: CONSTITUTIONAL: Denies fever or chills. CARDIOVASCULAR: Denies chest pain, +chronic shortness of breath, no orthopnea, PND or palpitations. RESPIRATORY: Denies cough. GASTROINTESTINAL: Denies abdominal pain, diarrhea, constipation, nausea or vomiting. MUSCULOSKELETAL: Denies myalgias. NEUROLOGIC: Denies numbness, tingling or weakness. ENDOCRINE: Denies fatigue, weight change, polydipsia or polyurina. GENITOURINARY: Denies burning, hematuria or urgency with micturation. HEMATOLOGIC: Denies history of anemia or bleeding. PHYSICAL EXAMINATION Vital signs reviewed. CONSTITUTIONAL: No apparent distress. HEENT: Head is normocephalic. Pupils are equal, round. Sclerae anicteric. Mucous membranes of the mouth are moist. No JVD. No carotid bruit. CHEST EXAMINATION: Lungs are clear to auscultation. No chest wall tenderness is noted on palpation or with deep breathing. HEART EXAMINATION: Irregular rate and rhythm. S1, S2 heard. No murmurs, gallops or rub. ABDOMEN: Soft, nontender. Positive bowel sounds. EXTREMITIES: 2+ peripheral pulses, no lower extremity edema and no calf tenderness. NEUROLOGIC EXAMINATION: Patient is awake, alert and oriented x3. ASSESSMENT 1. Asymptomatic bradycardia, may be exacerbated by anesthesia 2. Intermittent junctional rhythm with possible Afib 3. Intermittent brief runs of SVT 4. Alcohol cirrhosis 5. [place] 6. History of varices 7. Alcohol use PLAN Patient with a number of rhythm issues with bradycardia, intermittent episodes of SVT and what appears to be junctional rhythm which was identified when placed on telemetry. Possibly incidental with episodes occurring at home as well and since weaning of sedation/anesthesia no significant improvement. Patient states he has not had a more significant concerning symptoms such as lightheadedness or syncope and no current indication for permanent pacemaker. There is concern of underlying atrial fibrillation and junctional rhythm however CHADS VASC of 0 and continue to monitor especially given history of varices. Check electrolytes to ensure no major derangements. If electrolytes normal and patient able to ambulate without any difficulty, patient may be discharged home with home monitor. Likely perform a exercise stress test outpt to evaluate for any chronotropic incompetence. Past Medical History Past Medical History: Hypertension, Pneumonia Additional Past Medical History / Comment(s): Jose Raul any other medical history History of Any Multi-Drug Resistant Organisms: None Reported Past Surgical History: No Surgical Hx Reported Past Anesthesia/Blood Transfusion Reactions: No Reported Reaction Smoking Status: Current every day smoker - Past Family History Mother Family Medical History: No Reported History Medications and Allergies Home Medications Medication Instructions Recorded Confirmed Type Pantoprazole Sodium [Protonix] 40 mg PO BID 11/13/21 12/02/22 History Spironolactone 25 mg PO DAILY 11/13/21 12/02/22 History Pantoprazole Sodium 20 mg PO BID 10/20/22 12/02/22 History Pregabalin 100 mg PO BID 10/20/22 12/02/22 History clonazePAM [Clonazepam] 2 mg PO DAILY 10/20/22 12/02/22 History Allergies Allergy/AdvReac Type Severity Reaction Status Date / Time No Known Allergies Allergy Verified 12/02/22 09:16 Physical Exam Vitals: Vital Signs Temp Pulse Resp BP Pulse Ox 12/02/22 11:15 40 L 16 109/57 100 12/02/22 11:00 41 L 16 111/59 100 12/02/22 10:45 43 L 16 129/57 100 12/02/22 10:30 44 L 16 123/52 100 12/02/22 10:15 45 L 12 105/52 98 12/02/22 09:20 97.0 F L 72 16 148/67 95 Intake and Output 12/01/22 12/02/22 12/02/22 22:59 06:59 14:59 Other: Weight 70.2 kg Results Current Medications Generic Name Dose Route Start Last Admin Trade Name Freq PRN Reason Stop Dose Admin Lactated Ringer's 1,000 mls @ 20 mls/hr 12/02/22 05:52 12/02/22 09:22 Lactated Ringers IV 01/01/23 05:53 0 mls .Q24H ROBERT Administration Intake and Output 12/01/22 12/02/22 12/02/22 22:59 06:59 14:59 Other: Weight 70.2 kg Patient Weight 12/03/22 06:59 Weight 70.2 kg
[2022-12-02 13:19] LABS: African American GFR (CKD) >90 (>60 ml/min/1.73 sqM); Anion Gap 8 mmol/L; Blood Urea Nitrogen 18 mg/dL (9-20); Calcium 9.5 mg/dL (8.4-10.2); Carbon Dioxide 22 mmol/L (22-30); Chloride 92 mmol/L (98-107); Glucose 99 mg/dL (74-99); Magnesium 1.9 mg/dL (1.6-2.3); Non-African American GFR(CKD) 83 (>60 ml/min/1.73 sqM); Sodium 122 mmol/L (137-145)
[2022-12-02 13:34] LABS: Potassium 6.5 mmol/L (3.5-5.1)
[2022-12-02] MEDS: NICOTINE 21MG/24HR PATCH TRANSDERM SCH (14:55)
[2022-12-02] MEDS ORDERED: CALCIUM GLUCONATE IN NACL 1 GM in SALINE 1 100ML.BAG IVPB ONE (15:23)
[2022-12-02] MEDS ORDERED: INSULIN REGULAR 100 UNIT/ML VIAL (IV) IV ONE (15:23)
[2022-12-02] MEDS ORDERED: DEXTROSE 50% SYRINGE 50 ML IVP STA (15:23)
[2022-12-03] MEDS: LACTATED RINGERS 1,000 ML IV SCH (06:28)
[2022-12-03] MEDS: NICOTINE 21MG/24HR PATCH TRANSDERM SCH (07:35)
[2022-12-03 08:12] LABS: Potassium 5.8 mmol/L (3.5-5.1)
[2022-12-03 08:13] LABS: African American GFR (CKD) 83 (>60 ml/min/1.73 sqM); Anion Gap 10 mmol/L; Blood Urea Nitrogen 17 mg/dL (9-20); Calcium 9.5 mg/dL (8.4-10.2); Carbon Dioxide 22 mmol/L (22-30); Chloride 93 mmol/L (98-107); Glucose 112 mg/dL (74-99); Non-African American GFR(CKD) 71 (>60 ml/min/1.73 sqM); Sodium 125 mmol/L (137-145)
[2022-12-03] MEDS ORDERED: DEXTROSE 50% SYRINGE 50 ML IVP ONE (09:49)
[2022-12-03] MEDS ORDERED: SODIUM POLYSTYRENE SULFONATE 15 GM/60 ML BOTTLE PO ONE (09:49)
[2022-12-03] MEDS ORDERED: INSULIN REGULAR 100 UNIT/ML VIAL (IV) IV ONE (09:49)
[2022-12-03 10:26] LABS: Basophils # (A) 0.1 k/uL (0-0.2); Basophils % (A) 1 %; Eosinophils # (A) 0.1 k/uL (0-0.7); Eosinophils % (A) 2 %; HCT 43.5 % (39.0-53.0); HGB 14.7 gm/dL (13.0-17.5); Lymphocytes # (A) 1.4 k/uL (1.0-4.8); Lymphocytes % (A) 17 %; MCH 32.5 pg (25.0-35.0); MCHC 33.7 g/dL (31.0-37.0); MCV 96.2 fL (80.0-100.0); Mean Platelet Volume 8.1; Monocytes # (A) 0.7 k/uL (0-1.0); Monocytes % (A) 9 %; Neutrophils # (A) 5.8 k/uL (1.3-7.7); Neutrophils % (A) 70 %; Platelet Count 229 k/uL (150-450); RBC 4.52 m/uL (4.30-5.90); RDW 14.3 % (11.5-15.5); WBC 8.3 k/uL (3.8-10.6)
--- NOTE | 2022-12-03 11:04 | P.NPCON ---
History of Present Illness - Reason for Consult hyponatremia, hyperkalemia - History of Present Illness Reason for consultation: Hyponatremia and hyperkalemia History of present illness: Patient is a 57-year-old male seen in renal consultation for hyponatremia and hyperkalemia. Patient's sodium level on admission was 122 and is 125 today. Potassium was 6.5 and is 5.8 today. Patient underwent EGD on 12/02/2022 which showed nonbleeding angiectasia. No varices were noted. Patient has history of alcohol-induced liver cirrhosis. He does admit to taking Aldactone 50 mg once daily. He denies any recent paracentesis. No vomiting or diarrhea. He does admit to drinking 70-80 ounces of fluid daily which includes water, pop as well as alcohol. He denies chest pain or shortness of breath. No edema. No hematuria or dysuria. Denies use of nonsteroidals. No history of diabetes. Denies history of coronary artery disease. Renal function is stable with creatinine 1-1.1. Vital signs are stable. General: No acute distress. HEENT: Head exam is unremarkable. LUNGS: No audible rhonchi or wheezes. HEART: Rate and Rhythm are regular. ABDOMEN: Nontender. EXTREMITITES: No edema. Past Medical History Past Medical History: Hypertension, Pneumonia Additional Past Medical History / Comment(s): Jose Raul any other medical history History of Any Multi-Drug Resistant Organisms: None Reported Past Surgical History: No Surgical Hx Reported Past Anesthesia/Blood Transfusion Reactions: No Reported Reaction Smoking Status: Current every day smoker - Past Family History Mother Family Medical History: No Reported History Medications and Allergies Home Medications Medication Instructions Recorded Confirmed Type Pantoprazole Sodium [Protonix] 40 mg PO BID 11/13/21 12/02/22 History Pantoprazole Sodium 20 mg PO BID 10/20/22 12/02/22 History Pregabalin 100 mg PO BID 10/20/22 12/02/22 History clonazePAM [Clonazepam] 2 mg PO DAILY 10/20/22 12/02/22 History Allergies Allergy/AdvReac Type Severity Reaction Status Date / Time No Known Allergies Allergy Verified 12/02/22 09:16 Physical Exam Vitals: Vital Signs Temp Pulse Resp BP Pulse Ox 12/03/22 07:32 98.4 F 96 15 101/62 95 12/03/22 04:00 97.5 F L 84 16 104/66 94 L 12/03/22 00:00 98.3 F 86 15 94/62 96 12/02/22 20:00 98.3 F 75 18 109/69 94 L 12/02/22 15:24 97.6 F 78 18 151/78 97 12/02/22 14:43 77 16 119/78 98 12/02/22 13:23 86 16 113/76 99 12/02/22 12:40 82 16 117/71 100 12/02/22 12:25 78 16 124/80 98 12/02/22 12:00 82 16 140/74 97 12/02/22 11:45 75 16 138/72 97 12/02/22 11:30 78 16 126/72 98 12/02/22 11:15 40 L 16 109/57 100 12/02/22 11:00 41 L 16 111/59 100 Intake and Output 12/02/22 12/03/22 12/03/22 22:59 06:59 14:59 Intake Total 790 0 Balance 790 0 Intake: Oral 790 0 Other: Voiding Method Toilet Toilet Toilet # Voids 1 2 Results - Lab Results Most recent lab results Calcium 9.5 mg/dL (8.4-10.2) 12/03/22 07:06 Magnesium 1.9 mg/dL (1.6-2.3) 12/02/22 12:47 12/03/22 07:50 12/03/22 07:06 Assessment and Plan Plan: Assessment: 1. Hypovolemic hyponatremia. Diuretics held. Sodium 125 today. TSH normal. 2. Hyperkalemia secondary to Aldactone. Improved with medical management. 3. Alcohol-induced liver cirrhosis. Plan: 1500 mL fluid restriction. Low potassium diet. Encourage protein intake. Check serum and urine osmolality and urine sodium level. Hold spironolactone for now. Follow-up echocardiogram. Lokelma 10 g once today. Repeat BMP and magnesium level 2-3 days postdischarge. Follow up outpatient in 1 week. Patient advised to call office if notices any edema or weight gain of more than 3 pounds in 1 week duration. Thank you for the consultation. I will continue to follow the patient with you during his hospital stay.
[2022-12-03] MEDS ORDERED: SODIUM ZIRCONIUM CYCLOSILICATE 10 GM PACKET PO ONE (11:30)
--- NOTE | 2022-12-03 11:46 | P.PN ---
Subjective Progress Note Date: 12/03/22 HISTORY OF PRESENTING ILLNESS This is a pleasant 57-year-old with past medical history significant for alcohol abuse, liver cirrhosis, varices. Patient does not follow with a video software engineer. Patient presented for elective outpatient EGD for history of liver cirrhosis and varices. No telemetry was performed before procedure however during procedure, patient was noted to have bradycardic episodes on the 30s and 40s. Appeared to be junctional rhythm and questionable atrial fibrillation with loss of P waves however regular rhythm with heart rate in the 40s. Patient hemodynamically was stable. He denies any symptoms of lightheadedness, chest pain, shortness breath. He states that home if he does too much she will get somewhat winded however has been fairly chronic. Denies any recent hematochezia or melena. Denies any history of any cardiac issues. He does smoke, still drinks 2-3 beers every other day and no illicit drugs. No family history of CAD. He states he has never lost consciousness. EKG shows intermittent episodes of sinus rhythm and what appears to be brief SVT with P waves then quickly transitions to a slow HR in the 40's with regular rhythm and loss of P wave, appearing to represent Afib with junctional rhythm. There is J point elevation. No recent labs 12/03 Patient is seen on the cardiac stepdown unit in follow-up. monitoring coordinator is sinus rhythm. Patient is status post regular insulin and dextrose along with calcium gluconate. He also received 1 dose of Kayexalate and 1 dose of Lokelma. Initial potassium yesterday was 6.5 and repeat 5.8. None available this morning. Heart rate today is in the 80s, blood pressure 104/66. Echocardiogram has been obtained and report is pending. Also a event monitor was ordered for the patient. PHYSICAL EXAMINATION Vital signs reviewed. CONSTITUTIONAL: No apparent distress. HEENT: Head is normocephalic. Pupils are equal, round. Sclerae anicteric. Mucous membranes of the mouth are moist. No JVD. No carotid bruit. CHEST EXAMINATION: Lungs are clear to auscultation. No chest wall tenderness is noted on palpation or with deep breathing. HEART EXAMINATION: Irregular rate and rhythm. S1, S2 heard. No murmurs, gallops or rub. ABDOMEN: Soft, nontender. Positive bowel sounds. EXTREMITIES: 2+ peripheral pulses, no lower extremity edema and no calf tenderness. NEUROLOGIC EXAMINATION: Patient is awake, alert and oriented x3. ASSESSMENT 1. Asymptomatic bradycardia, may be exacerbated by anesthesia 2. Intermittent junctional rhythm with possible Afib 3. Intermittent brief runs of SVT 4. Alcohol cirrhosis 5. [place] 6. History of varices 7. Alcohol use PLAN No sign of atrial fibrillation. Patient has been advised to stop Aldactone at discharge. We are also advising that patient be considered for Eplerenone 12.5 mg daily verses aldactone. If BP is elevated in the outpatient setting, recommend propranolol 10 mg twice daily or 3 times daily. Patient is cleared for discharge from cardiology and may follow-up in the office in 2 weeks. Nurse practitioner note has been reviewed, I agree with the documented findings and plan of care. Patient was seen and examined. Objective - Vital Signs Vital signs: Vital Signs Temp 98.4 F 12/03/22 07:32 Pulse 96 12/03/22 07:32 Resp 15 12/03/22 07:32 BP 101/62 12/03/22 07:32 Pulse Ox 95 12/03/22 07:32 FiO2 Intake & Output 12/02/22 12/03/22 12/03/22 18:59 06:59 18:59 Intake Total 550 540 Balance 550 540 Weight 70.2 kg Intake: IV 300 Oral 250 540 Other: Voiding Method Toilet Toilet # Voids 1 2 - Labs CBC & Chem 7: 12/03/22 07:50 12/03/22 07:06 Labs: Abnormal Lab Results - Last 24 Hours (Table) 12/02/22 12/03/22 Range/Units 12:47 07:06 Sodium 122 L 125 L (137-145) mmol/L Potassium 6.5 H* 5.8 H (3.5-5.1) mmol/L Chloride 92 L 93 L (98-107) mmol/L Glucose 112 H (74-99) mg/dL
--- NOTE | 2022-12-03 12:41 | CA ---
Transthoracic Echo Report Name: Davian De La Rosa Age: 57 Gender: M : 1965 Exam Date: 12/02/2022 14:08 Exam Location: [facility] Ht (in): 71 Wt (lb): 160 Ordering Physician: Iman Mike Attending/Referring Phys: [id number], Rashid Local Operator Amelie West RDCS Procedure CPT: Indications: LV function Cardiac Hx: Technical Quality: Fair Contrast 1: Total Dose (mL): Contrast 2: Total Dose (mL): MEASUREMENTS (Male / Female) Normal Values 2D ECHO LV Diastolic Diameter PLAX 3.6 cm 4.2 - 5.9 / 3.9 - 5.3 cm LV Systolic Diameter PLAX 2.5 cm IVS Diastolic Thickness 1.1 cm 0.6 - 1.0 / 0.6 - 0.9 cm LVPW Diastolic Thickness 1.1 cm 0.6 - 1.0 / 0.6 - 0.9 cm LV Relative Wall Thickness 0.6 RV Internal Dim ED PLAX 3.0 cm LA Systolic Diameter LX 3.0 cm 3.0 - 4.0 / 2.7 - 3.8 cm LV Diastolic Volume MOD BP 47.0 cm??? 67 - 155 / 56 - 104 cm??? LV Systolic Volume MOD BP 21.7 cm??? 22 - 58 / 19 - 49 cm??? LV Ejection Fraction MOD BP 53.8 % >= 55 % LV Cardiac Index MOD BP 1021.8 cm???/min???m??? LV Diastolic Volume MOD 4C 47.4 cm??? LV Systolic Volume MOD 4C 22.3 cm??? LV Ejection Fraction MOD 4C 52.9 % LV Cardiac Index MOD 4C 1013.2 cm???/min???m??? LV Diastolic Length 4C 6.6 cm LV Systolic Length 4C 6.1 cm LV Diastolic Volume MOD 2C 42.5 cm??? LV Systolic Volume MOD 2C 19.8 cm??? LV Ejection Fraction MOD 2C 53.6 % LV Cardiac Index MOD 2C 921.2 cm???/min???m??? LV Diastolic Length 2C 6.0 cm LV Systolic Length 2C 5.6 cm LA Volume 29.2 cm??? 18 - 58 / 22 - 52 cm??? M-MODE Aortic Root Diameter MM 3.1 cm MV E Point Septal Separation 0.4 cm AV Cusp Separation MM 2.0 cm DOPPLER AV Peak Velocity 89.6 cm/s AV Peak Gradient 3.2 mmHg MV Area PHT 2.8 cm??? Mitral E Point Velocity 71.8 cm/s Mitral A Point Velocity 72.9 cm/s Mitral E to A Ratio 1.0 MV Deceleration Time 273.1 ms MV E' Velocity 6.7 cm/s Mitral E to MV E' Ratio 10.7 TR Peak Velocity 234.5 cm/s TR Peak Gradient 22.0 mmHg Right Ventricular Systolic Press 27.0 mmHg FINDINGS Left Ventricle Left ventricular ejection fraction is estimated at 50-55 %. Small left ventricular cavity. Mildly decreased left ventricular ejection fraction. Right Ventricle Normal right ventricular size and function. Right ventricular systolic pressure within normal limits. Right Atrium Normal right atrial size. Left Atrium Normal left atrial size. Mitral Valve Structurally normal mitral valve. Aortic Valve Trileaflet aortic valve. No aortic valve stenosis or regurgitation. Tricuspid Valve Structurally normal tricuspid valve. Mild tricuspid regurgitation. Pulmonic Valve Pulmonic valve not well visualized. No pulmonic regurgitation. Pericardium Normal pericardium. No pericardial effusion. Aorta Normal size aortic root and proximal ascending aorta. CONCLUSIONS Left ventricular ejection fraction 50-55% Mild tricuspid regurgitation RVSP 27 No pericardial effusion Previewed by: Dr. Brown Vieira DO (Electronically Signed) Final Date: 03 December 2022 12:40
--- NOTE | 2022-12-03 12:55 | P.HPIM ---
History of Present Illness H&P Date: 12/03/22 History of present illness; patient is a 57-year-old with past medical history significant for alcohol abuse, liver cirrhosis, varices who was scheduled for elective EGD. During the procedure patient was found to be bradycardic with heart rate in 30s to 40s. Patient was asymptomatic and hemodynamically stable. Patient completed the EGD. Lab work done showed patient to have a sodium of 122 and potassium of 6.5. Because of these events of bradycardia and hyperkalemia patient was admitted to the medicine service for further evaluation and treatment REVIEW OF SYSTEMS: CONSTITUTIONAL: No fever, no malaise, no fatigue. HEENT: No recent visual problems or hearing problems. Denied any sore throat. CARDIOVASCULAR: No chest pain, orthopnea, PND, no palpitations, no syncope. PULMONARY: No shortness of breath, no cough, no hemoptysis. GASTROINTESTINAL: No diarrhea, no nausea, no vomiting, no abdominal pain. NEUROLOGICAL: No headaches, no weakness, no numbness. HEMATOLOGICAL: Denies any bleeding or petechiae. GENITOURINARY: Denies any burning micturition, frequency, or urgency. MUSCULOSKELETAL/RHEUMATOLOGICAL: Denies any joint pain, swelling, or any muscle pain. ENDOCRINE: Denies any polyuria or polydipsia. The rest of the 14-point review of systems is negative. PHYSICAL EXAMINATION: GENERAL: The patient is alert and oriented x3, not in any acute distress. Well developed, well nourished. HEENT: Pupils are round and equally reacting to light. EOMI. No scleral icterus. No conjunctival pallor. Normocephalic, atraumatic. No pharyngeal erythema. No thyromegaly. CARDIOVASCULAR: S1 and S2 present. No murmurs, rubs, or gallops. PULMONARY: Chest is clear to auscultation, no wheezing or crackles. ABDOMEN: Soft, nontender, nondistended, normoactive bowel sounds. No palpable organomegaly. MUSCULOSKELETAL: No joint swelling or deformity. EXTREMITIES: No cyanosis, clubbing, or pedal edema. NEUROLOGICAL: Gross neurological examination did not reveal any focal deficits. SKIN: No rashes. Assessment and plan Bradycardia Hyponatremia Hypokalemia Intermittent junctional rhythm with possible Afib Intermittent brief runs of SVT Alcohol-induced liver cirrhosis History of esophageal varices Alcohol use Monitor vital signs Monitor CBC Monitor CMP Strict I's and O's Hyperkalemia protocol initiated Continue telemetry monitoring Avoid AV node blocking agents Cardiology consulted Nephrology consulted Past Medical History Past Medical History: Hypertension, Pneumonia Additional Past Medical History / Comment(s): Jose Raul any other medical history History of Any Multi-Drug Resistant Organisms: None Reported Past Surgical History: No Surgical Hx Reported Past Anesthesia/Blood Transfusion Reactions: No Reported Reaction Smoking Status: Current every day smoker - Past Family History Mother Family Medical History: No Reported History Medications and Allergies Home Medications Medication Instructions Recorded Confirmed Type Pantoprazole Sodium [Protonix] 40 mg PO BID 11/13/21 12/02/22 History Pantoprazole Sodium 20 mg PO BID 10/20/22 12/02/22 History Pregabalin 100 mg PO BID 10/20/22 12/02/22 History clonazePAM [Clonazepam] 2 mg PO DAILY 10/20/22 12/02/22 History Allergies Allergy/AdvReac Type Severity Reaction Status Date / Time No Known Allergies Allergy Verified 12/02/22 09:16 Physical Exam Vitals: Vital Signs Temp Pulse Resp BP Pulse Ox 12/03/22 07:32 98.4 F 96 15 101/62 95 12/03/22 04:00 97.5 F L 84 16 104/66 94 L 12/03/22 00:00 98.3 F 86 15 94/62 96 12/02/22 20:00 98.3 F 75 18 109/69 94 L 12/02/22 15:24 97.6 F 78 18 151/78 97 12/02/22 14:43 77 16 119/78 98 12/02/22 13:23 86 16 113/76 99 12/02/22 12:40 82 16 117/71 100 12/02/22 12:25 78 16 124/80 98 12/02/22 12:00 82 16 140/74 97 12/02/22 11:45 75 16 138/72 97 12/02/22 11:30 78 16 126/72 98 12/02/22 11:15 40 L 16 109/57 100 12/02/22 11:00 41 L 16 111/59 100 12/02/22 10:45 43 L 16 129/57 100 12/02/22 10:30 44 L 16 123/52 100 12/02/22 10:15 45 L 12 105/52 98 Intake and Output 12/02/22 12/03/22 12/03/22 22:59 06:59 14:59 Intake Total 790 0 Balance 790 0 Intake: Oral 790 0 Other: Voiding Method Toilet Toilet Toilet # Voids 1 2 Results CBC & Chem 7: 12/03/22 07:50 12/03/22 07:06 Labs: Abnormal Lab Results - Last 24 Hours (Table) 12/02/22 12/03/22 Range/Units 12:47 07:06 Sodium 122 L 125 L (137-145) mmol/L Potassium 6.5 H* 5.8 H (3.5-5.1) mmol/L Chloride 92 L 93 L (98-107) mmol/L Glucose 112 H (74-99) mg/dL
[2022-12-04] MEDS: LACTATED RINGERS 1,000 ML IV SCH (06:09)
[2022-12-04 07:53] VITALS: BP 111/72; PULSE 111; RESP 15; TEMP 98.4
[2022-12-04] MEDS: NICOTINE 21MG/24HR PATCH TRANSDERM SCH (07:53)
[2022-12-04 09:48] LABS: African American GFR (CKD) 81 (>60 ml/min/1.73 sqM); Anion Gap 12 mmol/L; Blood Urea Nitrogen 18 mg/dL (9-20); Calcium 9.3 mg/dL (8.4-10.2); Carbon Dioxide 23 mmol/L (22-30); Chloride 91 mmol/L (98-107); Glucose 119 mg/dL (74-99); Non-African American GFR(CKD) 70 (>60 ml/min/1.73 sqM); Potassium 4.8 mmol/L (3.5-5.1); Sodium 126 mmol/L (137-145)
[2022-12-04 09:51] LABS: Basophils % (A) 0 %; Eosinophils # (A) 0.1 k/uL (0-0.7); Eosinophils % (A) 1 %; HGB 14.4 gm/dL (13.0-17.5); Lymphocytes # (A) 1.1 k/uL (1.0-4.8); Lymphocytes % (A) 14 %; MCH 31.5 pg (25.0-35.0); MCHC 33.4 g/dL (31.0-37.0); MCV 94.3 fL (80.0-100.0); Monocytes # (A) 0.5 k/uL (0-1.0); Monocytes % (A) 6 %; Neutrophils % (A) 74 %; Platelet Count 182 k/uL (150-450); RBC 4.56 m/uL (4.30-5.90); RDW 14.5 % (11.5-15.5); WBC 8.1 k/uL (3.8-10.6)
--- NOTE | 2022-12-04 09:58 | P.PN ---
Subjective Patient is seen in follow-up for hyponatremia and hyperkalemia. Potassium normal. Sodium level slightly better at 126. Has been voiding. No vomiting or diarrhea. Wants to go home. Vital signs are stable. General: No acute distress. HEENT: Head exam is unremarkable. LUNGS: No audible rhonchi or wheezes. HEART: Rate and Rhythm are regular. ABDOMEN: Nontender, no distention. EXTREMITITES: No edema. Objective - Vital Signs Vital signs: Vital Signs Temp 98.4 F 12/04/22 07:52 Pulse 111 H 12/04/22 07:57 Resp 15 12/04/22 07:52 BP 111/72 12/04/22 07:52 Pulse Ox 99 12/04/22 07:52 FiO2 Intake & Output 12/03/22 12/04/22 12/04/22 18:59 06:59 18:59 Intake Total 1060 480 Output Total 200 Balance 860 480 Intake: Oral 1060 480 Output: Urine 200 Other: Voiding Method Toilet Toilet Toilet # Voids 1 - Labs CBC & Chem 7: 12/04/22 07:57 12/04/22 07:57 Labs: Abnormal Lab Results - Last 24 Hours (Table) 12/03/22 12/03/22 12/04/22 Range/Units 13:46 13:46 07:57 Sodium 126 L (137-145) mmol/L Potassium 5.7 H (3.5-5.1) mmol/L Chloride 91 L (98-107) mmol/L Glucose 119 H (74-99) mg/dL Osmolality 265 L (280-301) mosm/kg Assessment and Plan Plan: Assessment: 1. Hypovolemic hyponatremia. Diuretics held. Sodium 126 today. TSH normal. Urine sodium 60 and urine osmolality 301. 2. Hyperkalemia secondary to Aldactone. Improved with medical management. 3. Alcohol-induced liver cirrhosis. Plan: 1500 mL fluid restriction. Low potassium diet. Encourage protein intake. Continue to hold spironolactone for now. Preserved ejection fraction noted on echo. Repeat BMP and magnesium level 2-3 days postdischarge. Follow up outpatient in 1 week. Patient advised to call office if notices any edema or weight gain of more than 3 pounds in 1 week duration.
--- NOTE | 2022-12-04 13:15 | P.DS ---
Providers Date of admission: 12/02/22 14:35 Expected date of discharge: 12/04/22 Attending physician: Gerda Forrest Consults: 12/02/22 10:21 Consult Physician Urgent Consulting Provider: Brown Vieira Consult Reason/Comments: LOW HEART RATE, RHYTHM CHANGES Do you want consulting provider notified?: Already Contacted 12/03/22 09:48 Consult Physician Urgent Consulting Provider: Tamy Stafford Consult Reason/Comments: Hyponatremia, hyperkalemia Do you want consulting provider notified?: Yes Primary care physician: [facility] Hospital Course: Discharge diagnoses; Bradycardia Hyponatremia Hypokalemia Intermittent junctional rhythm with possible Afib Intermittent brief runs of SVT Alcohol-induced liver cirrhosis History of esophageal varices Alcohol use Hospital course; patient is a 57-year-old with past medical history significant for alcohol abuse, liver cirrhosis, varices who was scheduled for elective EGD. During the procedure patient was found to be bradycardic with heart rate in 30s to 40s. Patient was asymptomatic and hemodynamically stable. Patient completed the EGD. Lab work done showed patient to have a sodium of 122 and potassium of 6.5. Because of these events of bradycardia and hyperkalemia patient was admitted to the medicine service for further evaluation and treatment 12/04. Patient hyponatremia improved, hyperkalemia resolved. Nephrology recommended discharging patient on Lasix 20 mg daily. Aldactone discontinued Cardiology cleared the patient for discharge as well PHYSICAL EXAMINATION: GENERAL: The patient is alert and oriented x3, not in any acute distress. Well developed, well nourished. HEENT: Pupils are round and equally reacting to light. EOMI. No scleral icterus. No conjunctival pallor. Normocephalic, atraumatic. No pharyngeal erythema. No thyromegaly. CARDIOVASCULAR: S1 and S2 present. No murmurs, rubs, or gallops. PULMONARY: Chest is clear to auscultation, no wheezing or crackles. ABDOMEN: Soft, nontender, nondistended, normoactive bowel sounds. No palpable organomegaly. MUSCULOSKELETAL: No joint swelling or deformity. EXTREMITIES: No cyanosis, clubbing, or pedal edema. NEUROLOGICAL: Gross neurological examination did not reveal any focal deficits. SKIN: No rashes. Patient Condition at Discharge: Good Plan - Discharge Summary Discharge Rx Participant: Yes New Discharge Prescriptions: New Furosemide [Lasix] 20 mg PO DAILY #30 tab Continue Pantoprazole Sodium 20 mg PO BID Pregabalin 100 mg PO BID clonazePAM 2 mg PO DAILY Discontinued Pantoprazole Sodium [Protonix] 40 mg PO BID Spironolactone 25 mg PO DAILY Discharge Medication List Pantoprazole Sodium 20 mg PO BID 10/20/22 [History] Pregabalin 100 mg PO BID 10/20/22 [History] clonazePAM 2 mg PO DAILY 10/20/22 [History] Furosemide [Lasix] 20 mg PO DAILY #30 tab 12/04/22 [Rx] Follow up Appointment(s)/Referral(s): Brown Vieira DO [STAFF PHYSICIAN] - 12/18/22 4:00 pm ([facility] [address] [facility]) Jace Infante DO [STAFF PHYSICIAN] - 1 Week (Office did not answer, please call to schedule follow up appointment. ) Ambulatory/Diagnostic Orders: Basic Metabolic Panel [LAB.AMB] Location: None Selected Patient Instructions/Handouts: *Surgery [facility] - (Anesthesia) Discharge Instru ctions Outpatient Surgery, Bradycardia (DC), Upper Endoscopy (DC) Discharge Disposition: HOME SELF-CARE
== END 2022-12-04 11:28 | disposition home or self-care (01) | DRG 201 ==
LOC: ORWHC2ENDO 08:51 → 3SCARD 10:05 → ORWHC2ENDO 14:35 → 3SCARD 12-04 02:12
PROVIDERS: ADMIT Hospitalist; ATTEND Hospitalist
PROC: 0D598ZZ Destruction of Duodenum, Via Natural or Artificial Opening Endoscopic (ICD-10-PCS; principal; 2022-12-02 10:05)
DX: R00.1 Bradycardia, unspecified (principal); I85.00 Esophageal varices without bleeding; E86.1 Hypovolemia; E87.1 Hypo-osmolality and hyponatremia; E87.5 Hyperkalemia; I10 Essential (primary) hypertension; I48.91 Unspecified atrial fibrillation; K70.30 Alcoholic cirrhosis of liver without ascites; K76.6 Portal hypertension; T50.0X5A Adverse effect of mineralocorticoids and their antagonists, initial encounter; Z79.899 Other long term (current) drug therapy; K31.89 Other diseases of stomach and duodenum; K44.9 Diaphragmatic hernia without obstruction or gangrene; I47.1 Supraventricular tachycardia; F10.10 Alcohol abuse, uncomplicated; Z66 Do not resuscitate; Z87.19 Personal history of other diseases of the digestive system; Z87.01 Personal history of pneumonia (recurrent)
CPT/HCPCS: 43255; 80048; 83735; 83930; 83935; 84132; 84300; 84443; 85025; 93270; 93306

== ENCOUNTER → 2023-02-19 | Outpatient (CLI) | payer OTHER ==
[2023-02-19 10:28] VITALS: BP 153/78; PULSE 96; RESP 15; TEMP 98.4
--- NOTE | 2023-02-19 13:18 | P.PAINPG ---
PQRS Measure Charge Sheet Comment: HISTORY OF PRESENT ILLNESS: 57 yr old male as a referral from [facility] presents today w severe and chronic LBP x 2 yrs secondary to DDD, spondylosis and facet arthropathy without myelopathy for evaluation. Pt states pain level is provoked at 8/10 in intensity, constant, localized in the lower lumbar spine, throbbing in character w shooting pain towards the BLEs and feet. Pain is provoked by weight bearing activity. Pain is alleviated by medications (Tramadol, Elavil, Lyrica), PT x 4 wks in Sep 2022, repositioning and rest. Oswestry axial pain score at 16. PMH: OA, HTN, Liver Cirrhosis PSH: Denies SH: Daily tobacco user, ETOH use, No illicit drug use FH: Mo- No Reported History All: See list Meds: See list REVIEW OF ORGAN SYSTEMS: CONSTITUTIONAL: No fevers or chills. No recent weight loss. NEUROLOGICAL: + numbness and tingling along the distal extremities. No seizure disorders or headaches. MUSCULOSKELETAL: + pain PSYCHIATRIC: Denies current depression or suicidal thoughts. Physical Examinations : Constitutional : Cooperative , not in acute distress . Neurologic : Cranial nerve II to XII intact. No focal neurological deficits. Psychiatric : alert & oriented x 3. Matching mood & appropriate affect. Judgment & insight intact. Musculoskeletal : Cervical Spine Motor strength in the deltoid and biceps: Normal right side. Normal Left side Motor strength biceps and the wrist extensors: Normal right side . Normal left side Motor strength in the triceps muscle: Normal right side. Normal left side Deep tendon reflexes: Normal at the biceps. Normal at Brachioradialis. Normal at triceps Vertebral body tenderness to deep palpation over Cervical facet loading test: positive bilaterally Spurling test: positive bilaterally Neck distraction test: positive bilaterally Jose sign: positive bilaterally Lumbar spine Motor strength lower extremities ,thigh and legs 5/5 Right side , 5/5 Left side Deep tendon reflexes : Normal Knee Jerk. Normal Ankle Jerk Vertebral body tenderness over L5 Nowak Test positive Lumbar facet Loading Test: positive Right / positive Left Range of motion of the lumbar spine Flexion 30 degrees, extension 10 degrees Straight Leg Raise test: Left/ Right positive at 35 degrees Jacqueline test: positive right / positive left. Severe tenderness over the Sacroiliac joint on the Right / Left sides Gaenslen test: positive bilaterally Seated flexion test: positive bilat erally. Sacral spine : Severe tenderness over the Sacroiliac joint: right side / left side Range of motion: Flexion of the lumbar spine <60 degrees Range of motion: Extension of the lumbar spine <20 degrees Gaenslen's Test positive Rik's Test positive Jacqueline test: positive right side / left side Thigh Thrust Test Sacral Thrust Test Imaging: MRI noncontrast of the lumbar spine from 07/02/21 reviewed Assessment/ Plan : L5-S1 posterior disc herniation, Lumbar DDD Recommendation of MARIBEL L5-S1 #1. May need a series of injections for optimal pain relief. Risks, benefits of procedure discussed and patient verbalized understanding. Admits to aspirin or anti- coagulant use or medical history of diabetes. Protocol for discontinuation/ continuation of medications carlos a procedure discussed. Minimal anesthesia provided, if clinically indicated, consisting of Versed and Fentanyl. All questions answered. I have spent greater than 30 minutes on patient care today. Dr Gerard was available by phone for the evaluation of this patient. The time was used to review the medical records including relevant urine studies and Prescription history (MAPs), review of the available imaging, evaluation and examination of the patient, coordination of care with the medical staff and if applicable referring physicians, as well as creation of the medical record PQRS Narrative: Smoking Status Current every day smoker Home Medications: Ambulatory Orders Pantoprazole Sodium 20 mg PO BID 10/20/22 Pregabalin 100 mg PO BID 10/20/22 clonazePAM 2 mg PO DAILY 10/20/22 Furosemide [Lasix] 20 mg PO DAILY #30 tab 12/04/22 Controlled Substance Measures - Controlled Substance Measures Is patient prescribed a controlled substance at discharge?: No
== END ==
LOC: PNWHC3 09:22
PROVIDERS: ATTEND Specialist
DX: M51.36 Other intervertebral disc degeneration, lumbar region (principal); M54.50 Low back pain, unspecified; M19.90 Unspecified osteoarthritis, unspecified site; I10 Essential (primary) hypertension; F17.200 Nicotine dependence, unspecified, uncomplicated
CPT/HCPCS: 99211

== ENCOUNTER → 2023-03-25 | Outpatient (CLI) | payer OTHER ==
[2023-03-25 09:34] VITALS: BP 145/86; PULSE 119; RESP 16; TEMP 97.7
--- NOTE | 2023-03-25 14:43 | P.PAINPG ---
Objective - Vital Signs Vital signs: Vital Signs Temp 97.7 F 03/25/23 09:12 Pulse 119 H 03/25/23 09:12 Resp 16 03/25/23 09:12 BP 145/86 03/25/23 09:12 Pulse Ox 97 03/25/23 09:12 FiO2 Intake & Output 03/24/23 03/25/23 03/25/23 18:59 06:59 18:59 Weight 74.843 kg PQRS Measure Charge Sheet Mode of Arrival: Ambulatory Comment: HISTORY OF PRESENT ILLNESS: 57 yr old male presents today w severe and chronic LBP x 2 yrs secondary to DDD, spondylosis and facet arthropathy without myelopathy for evaluation s/p MARIBEL L5- S1 #1. Pt states he experienced 0% pain relief s/p procedure. Pt states pain level is provoked at 8/10 in intensity, constant, localized in the lower lumbar spine, throbbing in character w shooting pain towards the BLEs and feet. Pain is provoked by weight bearing activity. Pain is alleviated by medications, PT x 6 wks in Sep 2022, repositioning and rest. Oswestry axial pain score at 16. Interventional procedures include MARIBEL L5-S1 x1 Medications include Tramadol, Lyrica, Elavil, Tyl REVIEW OF ORGAN SYSTEMS: CONSTITUTIONAL: No fevers or chills. No recent weight loss. NEUROLOGICAL: + numbness and tingling along the distal extremities. No seizure disorders or headaches. MUSCULOSKELETAL: + pain PSYCHIATRIC: Denies current depression or suicidal thoughts. Physical Examinations : Constitutional : Cooperative , not in acute distress . Neurologic : Cranial nerve II to XII intact. No focal neurological deficits. Psychiatric : alert & oriented x 3. Matching mood & appropriate affect. Judgment & insight intact. Musculoskeletal : Cervical Spine Motor strength in the deltoid and biceps: Normal right side. Normal Left side Motor strength biceps and the wrist extensors: Normal right side . Normal left side Motor strength in the triceps muscle: Normal right side. Normal left side Deep tendon reflexes: Normal at the biceps. Normal at Brachioradialis. Normal at triceps Vertebral body tenderness to deep palpation over Cervical facet loading test: positive bilaterally Spurling test: positive bilaterally Neck distraction test: positive bilaterally Jose sign: positive bilaterally Lumbar spine Motor strength lower extremities ,thigh and legs 5/5 Right side , 5/5 Left side Deep tendon reflexes : Normal Knee Jerk. Normal Ankle Jerk Vertebral body tenderness over L5 Nowak Test positive Lumbar facet Loading Test: positive Right / positive Left over L4-L5, L5-S1 Range of motion of the lumbar spine Flexion 30 degrees, extension 10 degrees Straight Leg Raise test: Left/ Right positive at 35 degrees Jacqueline test: positive right / positive left. Severe tenderness over the Sacroiliac joint on the Right / Left sides Gaenslen test: positive bilaterally Seated flexion test: positive bilaterally. Sacral spine : Severe tenderness over the Sacroiliac joint: right side / left side Range of motion: Flexion of the lumbar spine <60 degrees Range of motion: Extension of the lumbar spine <20 degrees Gaenslen's Test positive Rik's Test positive Jacqueline test: positive right side / left side Thigh Thrust Test Sacral Thrust Test Imaging: MRI noncontrast of the lumbar spine from 07/02/21 reviewed Assessment/ Plan : L5-S1 posterior disc herniation, Lumbar DDD Recommendation of BL MBB L4-L5, L5-S1 #1. May need a series of injections, up until RFA, for optimal pain relief. Risks, benefits of procedure discussed and patient verbalized understanding. Admits to aspirin or anti- coagulant use or medical history of diabetes. Protocol for discontinuation/ continuation of medications carlos a procedure discussed. Minimal anesthesia provided, if clinically indicated, consisting of Versed and Fentanyl. All questions answered. I have spent greater than 30 minutes on patient care today. Dr Gerard was available by phone for the evaluation of this patient. The time was used to review the medical records including relevant urine studies and Prescription history (MAPs), review of the available imaging, evaluation and examination of the patient, coordination of care with the medical staff and if applicable referring physicians, as well as creation of the medical record - Pain Location Bilateral Lower Back Non-Pharmacological Interventions: Physical Therapy, Position/Reposition Pharmacological Interventions: PRN Medication, Topical Medication PQRS Narrative: Smoking Status Current every day smoker Blood Pressure 145/86 Pain Intensity [Bilateral 8 Lower Back] Scale Used Numeric (1 - 10) Hx Alcohol Use (MH) Yes Home Medications: Ambulatory Orders Pantoprazole Sodium 20 mg PO BID 10/20/22 Pregabalin 100 mg PO BID 10/20/22 clonazePAM 2 mg PO DAILY 10/20/22 Furosemide [Lasix] 20 mg PO DAILY #30 tab 12/04/22 Controlled Substance Measures - Controlled Substance Measures Is patient prescribed a controlled substance at discharge?: No
== END ==
LOC: PNWHC3 08:59
PROVIDERS: ATTEND Specialist
DX: M51.37 Other intervertebral disc degeneration, lumbosacral region (principal); M51.27 Other intervertebral disc displacement, lumbosacral region; F17.200 Nicotine dependence, unspecified, uncomplicated
CPT/HCPCS: 99211